=== PATIENT | female | born 1970 | race Caucasian/White ===

== ENCOUNTER → 2020-07-10 07:59 | Outpatient (BNVA) | payer OTHER, SELFPAY | PROVIDERS: PCP Internal Medicine; Referring Provider Internal Medicine; Visit Provider Internal Medicine Endocrinology, Diabetes & Metabolism | DX: Z76.89 Persons encountering health services in other specified circumstances (principal) ==

== ENCOUNTER 2020-07-10 08:49 | Outpatient (REF) | payer OTHER, SELFPAY ==
[2020-07-10 10:56] LABS: Alanine Aminotransferase 25 U/L (0-31); Albumin Level 4.3 g/dL (3.5-5.0); Alkaline Phosphatase 50 U/L (39-117); Anion Gap 14 (12-20); Aspartate Amino Transferase 18 U/L (5-31); Bilirubin Total 0.6 mg/dL (0.0-1.0); Blood Urea Nitrogen 14 mg/dL (9-16); Calcium 9.2 mg/dL (8.4-10.2); Carbon Dioxide 25 mmol/L (22-29); Chloride 103 mmol/L (96-108); Cholesterol 156 mg/dL; Estimated Glomerular Filt Rate > 60; Glucose Fasting 150 mg/dL (60-99); HDL Cholesterol 38 mg/dL; LDL Cholesterol Calculated 90 mg/dl; Potassium 4.4 mmol/l (3.3-5.1); Sodium 138 mmol/L (135-145); Total Protein 7.2 g/dL (6.5-8.0); Triglycerides 142 mg/dL
[2020-07-10 11:18] LABS: Free T4 (Free Thyroxine) 1.37 ng/dL (0.71-1.85); Vitamin D 25-OH Total 64.1 ng/mL (>30)
[2020-07-10 11:30] LABS: Vitamin B12 325 pg/mL (200-900)
[2020-07-11 17:26] LABS: Calcium (PTHI) 9.8 mg/dL (8.6-10.2); PTHI 33 pg/mL (14-64)
[2020-07-11 19:02] LABS: LDL Cholesterol Direct 102 mg/dL (<100)
[2020-07-14 06:42] LABS: Thyroglobulin Antibody <1 IU/mL (<=1); Thyroglobulin Level 0.6 ng/mL
== END 2020-07-10 08:50 | disposition home or self-care (01) ==
LOC: HO.10HDL 08:49
PROVIDERS: Visit Provider Internal Medicine Endocrinology, Diabetes & Metabolism
DX: C73 Malignant neoplasm of thyroid gland (principal); Z86.39 Personal history of other endocrine, nutritional and metabolic disease; E11.9 Type 2 diabetes mellitus without complications
CPT/HCPCS: 36415; 80053; 80061; 82306; 82607; 83721; 83970; 84432; 84439; 84443; 86800

== ENCOUNTER 2020-07-10 14:21 | Outpatient (REF) | payer OTHER, SELFPAY ==
--- NOTE | 2020-07-10 14:26 | US_ITS ---
EXAMINATION: US SOFT TISSUE OF THE NECK CLINICAL INFORMATION: Malignant neoplasm of thyroid gland. COMPARISON: Ultrasound soft tissue head/neck dated 11/21/2018. Thyroid ultrasound 06/19/2019. TECHNIQUE: Linear transducer grayscale and color Doppler examination of the thyroid bed and surrounding soft tissue. FINDINGS: RIGHT NECK: 1.Level 2 lymph node measures 1.0 x 0.5 x 0.8 cm. It has absent hilum with cystic features, abnormal. 2.Level 2 lymph node measures 1.7 x 0.6111 cm. It has slit-like hilum and appears normal. 3.Level 3 lymph node measures 1.7 x 0.6 x 1.1 cm. Absent hilum with cystic features, abnormal. 4.Level 5A lymph node measures 1.0 x 0.7 x 0.7 cm. It has absent hilum and has cystic and round features. LEFT NECK: 1.Level 1B lymph node measures 1.2 x 0.9 x 1.1 cm. It has absent hilum and has dominant cystic features with septation. Abnormal. 2.Level 2 lymph node measures 1.6 x 0.8 x 1.6 cm. Septations, abnormal. 3.Level 3 lymph node measures 1.4 x 0.6 x 0.8 cm. It has normal echogenic medulla and hypoechoic cortex, normal. 4.Level 3 lymph node measures 1.3 x 0.3 x 0.7 cm. There is normal echogenic medulla. Normal. 5.Level 4 lymph node measures 1.5 x 0.6 x 0.9 cm. It is an echogenic medulla and typical lymph node appearance, normal. 6.Level 2 lymph node measures 0.9 x 0.3 x 0.6 cm and has normal lymph node characteristics. US/US soft tiss head and/or neck IMPRESSION: Neck lymph nodes as described above.
== END 2020-07-10 14:22 | disposition home or self-care (01) ==
LOC: HO.US 14:21
PROVIDERS: PCP Internal Medicine; Visit Provider Internal Medicine Endocrinology, Diabetes & Metabolism
DX: C73 Malignant neoplasm of thyroid gland (principal)
CPT/HCPCS: 76536

== ENCOUNTER 2020-07-17 16:04 | Outpatient (REF) | payer OTHER, SELFPAY ==
[2020-07-17 16:25] LABS: COVID-19 Test Negative (Negative)
== END 2020-07-17 16:05 | disposition home or self-care (01) ==
LOC: HO.LAB 16:04
PROVIDERS: PCP Internal Medicine; Visit Provider Internal Medicine
DX: Z20.828 Contact with and (suspected) exposure to other viral communicable diseases (principal)
CPT/HCPCS: 87635; C9803

== ENCOUNTER 2020-07-31 11:28 | Outpatient (REF) | payer OTHER, SELFPAY ==
--- NOTE | 2020-07-31 12:53 | PM.OP ---
Brief Operative Note Date of Service: 07/31/20 Pre-op diagnosis: Abnormal lymphadenopathy on previous follicular and papillary thyroid cancer Post-op diagnosis: same Procedure: This procedure was explained to the patient. Alternatives, risks and benefits were discussed. Written consent was obtained. After sterile preparation of the skin, fine-needle aspiration biopsy of right level 2 lymph node size 1.7 x 0.6 cm was performed under direct ultrasound guidance to confirm accurate needle placement. Two passes were performed with 25 gauge needles. Sample was submitted to cytology, initial cytology reading was adequate. One pass was dedicated for thyroglobulin washout of the needle. Patient tolerated procedure well. Aftercare instructions were provided. Impression: uncomplicated fine-needle aspiration biopsy of right level 2 lymph node under direct ultrasound guidance. Surgeon: Chapito Kennedy MD Anesthesia: local (Lidocaine 1% 1 ml) Estimated blood loss (mL): 0 Condition: stable Disposition: same day
[2020-07-31] MEDS: Lidocaine HCl 1 % MPF 5 ML VIAL SUBCUT (13:57)
[2020-08-05 23:37] LABS: Thyroglobulin, Fine Needle Asp <0.1 ng/mL
== END 2020-07-31 11:29 | disposition home or self-care (01) ==
LOC: HO.US 11:28
PROVIDERS: PCP Internal Medicine; Visit Provider Internal Medicine Endocrinology, Diabetes & Metabolism
DX: C73 Malignant neoplasm of thyroid gland (principal); R59.1 Generalized enlarged lymph nodes
CPT/HCPCS: 10005; 88172; 88173; 88300

== ENCOUNTER 2020-08-27 08:36 | Outpatient (REF) | payer OTHER, SELFPAY ==
--- NOTE | 2020-08-27 08:40 | MM_ITS ---
EXAMINATION: MM SCREENING DIGITAL BREAST TOMOSYNTHESIS, BILATERAL CLINICAL INFORMATION: Screening. Asymptomatic. The lifetime risk of breast cancer based on the Tyrer-Cuzick Model is 7%. COMPARISON: Mammography: 08/15/2019, 04/12/2018 TECHNIQUE: Digital breast tomosynthesis is performed in both the craniocaudal and mediolateral oblique views along with computer-aided detection (CAD). Synthesized 2D images are generated from the tomosynthesis. FINDINGS: There are scattered areas of fibroglandular density (ACR BI-RADS breast composition Category b). There are no significant masses, abnormal calcifications, or other abnormalities. ) Pattern is similar to prior studies. No developing density. The skin contours are smooth. MM/MM tomosynthesis screening BI IMPRESSION: No mammographic evidence of malignancy. ASSESSMENT: BI-RADS 1: Negative RECOMMENDATION: Routine annual mammography screening. This patient's information was entered into a reminder system with a target due date for their next mammogram.
== END 2020-08-27 08:37 | disposition home or self-care (01) ==
LOC: HO.MAMMO 08:36
PROVIDERS: PCP Internal Medicine; Visit Provider Internal Medicine
DX: Z12.31 Encounter for screening mammogram for malignant neoplasm of breast (principal)
CPT/HCPCS: 77063; 77067

== ENCOUNTER → 2020-10-10 08:19 | Outpatient (BNVA) | payer OTHER, SELFPAY | PROVIDERS: PCP Internal Medicine; Referring Provider Internal Medicine; Visit Provider Internal Medicine Endocrinology, Diabetes & Metabolism | DX: C73 Malignant neoplasm of thyroid gland (principal); E89.0 Postprocedural hypothyroidism; E78.5 Hyperlipidemia, unspecified; E66.9 Obesity, unspecified; E11.65 Type 2 diabetes mellitus with hyperglycemia; I10 Essential (primary) hypertension; Z86.39 Personal history of other endocrine, nutritional and metabolic disease | CPT/HCPCS: 82947 ==

== ENCOUNTER 2020-10-10 09:05 | Outpatient (REF) | payer OTHER, SELFPAY ==
[2020-10-10 10:30] LABS: Alanine Aminotransferase 29 U/L (0-31); Albumin Level 4.5 g/dL (3.5-5.0); Alkaline Phosphatase 55 U/L (39-117); Anion Gap 14 (12-20); Aspartate Amino Transferase 19 U/L (5-31); Bilirubin Total 0.7 mg/dL (0.0-1.0); Blood Urea Nitrogen 14 mg/dL (9-16); Calcium 9.1 mg/dL (8.4-10.2); Carbon Dioxide 25 mmol/L (22-29); Chloride 104 mmol/L (96-108); Cholesterol 164 mg/dL; Estimated Glomerular Filt Rate > 60; Glucose Random 201 mg/dL (60-115); HDL Cholesterol 42 mg/dL; LDL Cholesterol Calculated 91 mg/dl; Potassium 4.8 mmol/l (3.3-5.1); Sodium 138 mmol/L (135-145); Total Protein 7.2 g/dL (6.5-8.0); Triglycerides 155 mg/dL
[2020-10-10 10:54] LABS: Free T4 (Free Thyroxine) 1.24 ng/dL (0.71-1.85); Thyroid Stimulating Hormone 1.21 uIU/mL (0.32-4.0); Vitamin D 25-OH Total 36.2 ng/mL (>30)
[2020-10-11 08:17] LABS: LDL Cholesterol Direct 106 mg/dL (<100)
[2020-10-13 15:30] LABS: Vitamin B12 250 pg/mL (200-900)
[2020-10-16 05:17] LABS: Thyroglobulin Antibody <1 IU/mL (<=1); Thyroglobulin Level 0.5 ng/mL
== END 2020-10-10 09:06 | disposition home or self-care (01) ==
LOC: HO.10HDL 09:05
PROVIDERS: Visit Provider Internal Medicine Endocrinology, Diabetes & Metabolism
DX: E11.65 Type 2 diabetes mellitus with hyperglycemia (principal); C73 Malignant neoplasm of thyroid gland; E89.0 Postprocedural hypothyroidism; Z86.39 Personal history of other endocrine, nutritional and metabolic disease
CPT/HCPCS: 36415; 80053; 80061; 82306; 82607; 83721; 84432; 84439; 84443; 86800

== ENCOUNTER → 2021-01-06 08:44 | Outpatient (BNVA) | payer OTHER, SELFPAY | PROVIDERS: PCP Internal Medicine; Visit Provider Internal Medicine Endocrinology, Diabetes & Metabolism | DX: C73 Malignant neoplasm of thyroid gland (principal); E89.0 Postprocedural hypothyroidism; E78.5 Hyperlipidemia, unspecified; E66.9 Obesity, unspecified; I10 Essential (primary) hypertension; E11.9 Type 2 diabetes mellitus without complications; Z86.39 Personal history of other endocrine, nutritional and metabolic disease | CPT/HCPCS: 82947 ==

== ENCOUNTER 2021-01-06 09:25 | Outpatient (REF) | payer OTHER, SELFPAY ==
[2021-01-06 11:19] LABS: Free T4 (Free Thyroxine) 0.98 ng/dL (0.71-1.85); Thyroid Stimulating Hormone 1.43 uIU/mL (0.32-4.0)
[2021-01-07 06:26] LABS: LDL Cholesterol Direct 109 mg/dL (<100)
[2021-01-10 07:11] LABS: Thyroglobulin Antibody <1 IU/mL (<=1); Thyroglobulin Level 0.5 ng/mL
== END 2021-01-06 09:26 | disposition home or self-care (01) ==
LOC: HO.10HDL 09:25
PROVIDERS: Visit Provider Internal Medicine Endocrinology, Diabetes & Metabolism
DX: C73 Malignant neoplasm of thyroid gland (principal); E78.5 Hyperlipidemia, unspecified
CPT/HCPCS: 36415; 83721; 84432; 84439; 84443; 86800

== ENCOUNTER 2021-03-17 13:06 | Outpatient (REF) | payer OTHER, SELFPAY ==
[2021-03-17 14:23] LABS: Alanine Aminotransferase 28 U/L (0-31); Albumin Level 4.1 g/dL (3.5-5.0); Alkaline Phosphatase 58 U/L (39-117); Anion Gap 13 (12-20); Aspartate Amino Transferase 16 U/L (5-31); Bilirubin Total 0.6 mg/dL (0.0-1.0); Blood Urea Nitrogen 12 mg/dL (9-16); Calcium 9.4 mg/dL (8.4-10.2); Carbon Dioxide 23 mmol/L (22-29); Chloride 106 mmol/L (96-108); Estimated Glomerular Filt Rate > 60; Glucose Random 317 mg/dL (60-115); Potassium 4.2 mmol/L (3.3-5.1); Sodium 138 mmol/L (135-145); Total Protein 6.8 g/dL (6.5-8.0)
[2021-03-17 14:27] LABS: Estimated Average Glucose 163 mg/dL; Hemoglobin A1c % 7.3 %
== END 2021-03-17 13:07 | disposition home or self-care (01) ==
LOC: HO.HMGCLDS 13:06
PROVIDERS: PCP Internal Medicine; Visit Provider Internal Medicine
DX: I10 Essential (primary) hypertension (principal); E11.9 Type 2 diabetes mellitus without complications
CPT/HCPCS: 36415; 80053; 83036

== ENCOUNTER 2021-03-24 14:46 | Outpatient (REF) | payer OTHER, SELFPAY ==
--- NOTE | ~2021-03-24 | MR_ITS ---
EXAMINATION: MR LUMBAR SPINE WITHOUT AND WITH CONTRAST CLINICAL INFORMATION: History of prior lumbar fusion. Right ball of foot numbness. Back spasms. COMPARISON: MRI dated 11/20/2013. TECHNIQUE: MRI of the lumbar spine was obtained using routine sequences with and without contrast. Intravenous contrast: Gadavist 10 mL FINDINGS: VERTEBRAL BODIES AND PARASPINAL STRUCTURES: There is a mild rightward curvature of the midlumbar spine. Posterior interbody fusion hardware in place at the L4-L5 level with chronic fatty marrow degenerative endplate changes and a prior right-sided decompressive laminectomy. Transitional anatomy again evident with partial sacralization of L5 on the right side with a pseudoarticulation visible. There are no compression fractures. Mild retrosubluxation evident at the L3-L4 level. No abnormal enhancement identified. The paraspinal soft tissues are unremarkable. CONUS MEDULLARIS AND CAUDA EQUINA: Normal, terminating at the level of T12. No lower cord signal abnormality is seen. The cauda equina nerve roots are normal. No pathologic leptomeningeal enhancement identified. SPINAL LEVELS: L1-L2: No disc pathology. Mild facet arthrosis without central canal stenosis or foraminal narrowing. L2-L3: Retrosubluxation and broad-based posterior disc bulge with impression upon the thecal sac. Hypertrophic facet arthropathy noted. Stable gkqa-qn-gzckmrxc central canal stenosis and thecal sac deformity with mild foraminal encroachment. L3-L4: Diffuse disc bulge and hypertrophic facet arthropathy with worsened ayee-an-hcllrtnc thecal sac distortion and jdxa-ka-qvwgsmqt central canal stenosis. Mild left and moderate right foraminal narrowing have also worsened. L4-L5: Status post posterior lumbar interbody fusion without central canal stenosis. Hypertrophic bony changes contribute to moderate right foraminal encroachment. L5-S1: No disc pathology. Hypertrophic facet arthropathy without foraminal encroachment. No central canal stenosis. MR/MR lumbar spine wo/w con IMPRESSION: Status post posterior lumbar interbody fusion at the L4-L5 level with hypertrophic bony changes resulting in moderate right foraminal encroachment. Stable oofa-uj-aedazekv central canal stenosis and retrosubluxation with a diffuse disc bulge at the L2-L3 level. Progressed spondylitic changes at the L3-L4 level with a worsened diffuse disc bulge and endplate spurring contributing to adeb-ua-zqajknos central canal stenosis and thecal sac deformity with worsened moderate right foraminal narrowing.
== END 2021-03-24 14:47 | disposition home or self-care (01) ==
LOC: HO.MRI 14:46
PROVIDERS: PCP Internal Medicine; Visit Provider Internal Medicine
DX: M54.16 Radiculopathy, lumbar region (principal); M43.26 Fusion of spine, lumbar region
CPT/HCPCS: 72158; A9585

== ENCOUNTER → 2021-11-18 14:24 | Outpatient (BNVA) | payer OTHER, SELFPAY | PROVIDERS: PCP Internal Medicine; Visit Provider Internal Medicine ==

== ENCOUNTER 2021-11-19 07:52 | Outpatient (REF) | payer OTHER, SELFPAY ==
[2021-11-19 10:14] LABS: Alanine Aminotransferase 39 U/L (0-31); Albumin Level 4.3 g/dL (3.5-5.0); Alkaline Phosphatase 54 U/L (39-117); Anion Gap 15 (12-20); Aspartate Amino Transferase 27 U/L (5-31); Bilirubin Total 0.9 mg/dL (0.0-1.0); Blood Urea Nitrogen 17 mg/dL (9-16); Calcium 9.6 mg/dL (8.4-10.2); Carbon Dioxide 25 mmol/L (22-29); Chloride 101 mmol/L (96-108); Estimated Glomerular Filt Rate > 60; Glucose Random 310 mg/dL (60-115); Phosphorus 3.1 mg/dL (2.7-4.5); Potassium 4.7 mmol/L (3.3-5.1); Sodium 136 mmol/L (135-145); Total Protein 7.2 g/dL (6.5-8.0)
[2021-11-19 10:40] LABS: Free T4 (Free Thyroxine) 1.19 ng/dL (0.71-1.85); Thyroid Stimulating Hormone 5.04 uIU/mL (0.32-4.0); Vitamin D 25-OH Total 41.1 ng/mL (>30)
[2021-11-20 18:17] LABS: Thyroglobulin 0.7 ng/mL; Thyroglobulin Antibodies <1 IU/mL (< or = 1)
[2021-11-21 09:52] LABS: Calcium (PTHI) 9.5 mg/dL (8.6-10.4); PTHI 41 pg/mL (14-64)
== END 2021-11-19 07:53 | disposition home or self-care (01) ==
LOC: HO.LAB 07:52
PROVIDERS: PCP Internal Medicine; Visit Provider Internal Medicine
DX: E55.9 Vitamin D deficiency, unspecified (principal); Z85.850 Personal history of malignant neoplasm of thyroid; Z86.39 Personal history of other endocrine, nutritional and metabolic disease
CPT/HCPCS: 36415; 80053; 82306; 83970; 84100; 84432; 84439; 84443; 86800

== ENCOUNTER 2021-11-24 09:03 | Outpatient (REF) | payer OTHER, SELFPAY ==
--- NOTE | ~2021-11-24 | MM_ITS ---
EXAMINATION: MM SCREENING DIGITAL BREAST TOMOSYNTHESIS, BILATERAL CLINICAL INFORMATION: Screening. Asymptomatic. The lifetime risk of breast cancer based on the Tyrer-Cuzick Model is 8%. COMPARISON: Mammography: 08/27/2020, 08/15/2019, 04/12/2018 TECHNIQUE: Digital breast tomosynthesis is performed in both the craniocaudal and mediolateral oblique views along with computer-aided detection (CAD). Synthesized 2D images are generated from the tomosynthesis. FINDINGS: There are scattered areas of fibroglandular density (ACR BI-RADS breast composition Category b). There are no significant masses, abnormal calcifications, or other abnormalities. Parenchymal pattern is similar to prior studies. There is no developing density or architectural abnormality. The axilla and skin contours are unremarkable. No significant changes. MM/MM tomosynthesis screening BI IMPRESSION: No mammographic evidence of malignancy. ASSESSMENT: BI-RADS 1: Negative RECOMMENDATION: Routine annual mammography screening. This patient's information was entered into a reminder system with a target due date for their next mammogram.
== END 2021-11-24 09:04 | disposition home or self-care (01) ==
LOC: HO.MAMMO 09:03
PROVIDERS: PCP Internal Medicine; Visit Provider Internal Medicine
DX: Z12.31 Encounter for screening mammogram for malignant neoplasm of breast (principal)
CPT/HCPCS: 77063; 77067

== ENCOUNTER 2021-12-17 13:51 | Outpatient (REF) | payer OTHER, SELFPAY ==
--- NOTE | ~2021-12-17 | US_ITS ---
EXAMINATION: US SOFT TISSUE NECK CLINICAL INFORMATION: Thyroid cancer. COMPARISON: Previous ultrasound June 2020 TECHNIQUE: Ultrasound of the neck soft tissues is performed with high- frequency hunt-scale imaging and color Doppler. FINDINGS: THYROID BED: Prior thyroidectomy. No residual thyroid tissue demonstrated in the thyroid bed. No cystic or solid nodules demonstrated in the thyroid bed. RIGHT NECK SOFT TISSUES: There are 3 right cervical lymph nodes. The largest nodes are as follows: Level 2: 1.6 x 0.5 x 0.6 cm. previous 1.7 x 0.6 x 1.1 cm. Normal elizabeth architecture. Level 3: 2.2 x 0.8 x 1.3 cm. previous 1.7 x 0.6 x 1.1 abnormal elizabeth architecture with slitlike hilum. LEFT NECK SOFT TISSUES: There are 4 left cervical lymph nodes. The largest nodes are as follows: Level 2: 1.4 x 1 x 1.5 cm. previous 1.2 x 0.9 x 1.1 abnormal elizabeth architecture with cortical thickening Level 2: 1.6 x 0.7 x 0.6 cm. Normal elizabeth architecture. There are level 3 and level 4 lymph nodes that appear unchanged in size with normal elizabeth architecture. US/US soft tiss head and/or neck IMPRESSION: Bilateral cervical lymph nodes. Most suspicious lymph node is a right zone 3 lymph node that measures 2.2 x 0.8 x 1.3 cm and has a slitlike hilum.
== END 2021-12-17 13:52 | disposition home or self-care (01) ==
LOC: HO.US 13:51
PROVIDERS: PCP Internal Medicine; Visit Provider Internal Medicine
DX: Z85.850 Personal history of malignant neoplasm of thyroid (principal)
CPT/HCPCS: 76536

== ENCOUNTER → 2021-12-21 08:52 | Outpatient (BNVA) | payer OTHER, SELFPAY | PROVIDERS: PCP Internal Medicine; Visit Provider Nurse Practitioner Gerontology | DX: Z85.850 Personal history of malignant neoplasm of thyroid (principal) | CPT/HCPCS: 96372 ==

== ENCOUNTER 2021-12-22 08:53 | Outpatient (REF) | payer OTHER, SELFPAY ==
[2021-12-22 10:20] LABS: HCG Quantitative < 2 mIU/mL
== END 2021-12-22 08:54 | disposition home or self-care (01) ==
LOC: HO.LAB 08:53
PROVIDERS: Absent Provider Internal Medicine; PCP Internal Medicine; Visit Provider Internal Medicine Endocrinology, Diabetes & Metabolism
DX: Z85.850 Personal history of malignant neoplasm of thyroid (principal)
CPT/HCPCS: 36415; 84702; 96372

== ENCOUNTER 2021-12-23 11:39 | Outpatient (REF) | payer OTHER, SELFPAY ==
[2021-12-23 12:17] LABS: Estimated Average Glucose 183 mg/dL
[2021-12-23 12:50] LABS: Alanine Aminotransferase 55 U/L (0-31); Albumin Level 4.3 g/dL (3.5-5.0); Alkaline Phosphatase 60 U/L (39-117); Anion Gap 11 (12-20); Aspartate Amino Transferase 27 U/L (5-31); Bilirubin Total 0.7 mg/dL (0.0-1.0); Blood Urea Nitrogen 14 mg/dL (9-16); Calcium 9.8 mg/dL (8.4-10.2); Carbon Dioxide 25 mmol/L (22-29); Chloride 105 mmol/L (96-108); Estimated Glomerular Filt Rate > 60; Glucose Random 223 mg/dL (60-115); Potassium 4.6 mmol/L (3.3-5.1); Sodium 136 mmol/L (135-145); Total Protein 7.2 g/dL (6.5-8.0)
[2021-12-23 12:51] LABS: Thyroid Stimulating Hormone 56.14 uIU/mL (0.32-4.0)
[2021-12-24 09:21] LABS: Thyroglobulin 3.3 ng/mL; Thyroglobulin Antibodies <1 IU/mL (< or = 1)
== END 2021-12-23 11:40 | disposition home or self-care (01) ==
LOC: HO.LAB 11:39
PROVIDERS: PCP Internal Medicine; Visit Provider Internal Medicine
DX: E11.65 Type 2 diabetes mellitus with hyperglycemia (principal); E78.9 Disorder of lipoprotein metabolism, unspecified; I10 Essential (primary) hypertension; Z85.850 Personal history of malignant neoplasm of thyroid
CPT/HCPCS: 36415; 80053; 83036; 84432; 84443; 86800

== ENCOUNTER 2021-12-24 05:05 | Emergency (ER) | payer OTHER, SELFPAY ==
[2021-12-24 05:18] VITALS: BP 159/108; PULSE 97; RESP 18; TEMP 37.1; O2SAT 100; BMI 31.9
[2021-12-24 05:24] VITALS: BP 159/108; PULSE 97; RESP 18; TEMP 37.1; O2SAT 100
[2021-12-24 05:40] LABS: Strep A Nucleic Acid Positive (Negative)
--- NOTE | 2021-12-24 06:25 | ED_ITS ---
HPI - General Adult General Chief complaint: General Medical Stated complaint: throat pain, has been treated for thyroid cancer Time Seen by Provider: 12/24/21 06:24 Source: patient Mode of arrival: ambulatory History of Present Illness HPI narrative: 51-year-old female currently undergoing treatment for thyroid CA comes in with 2 days of scratchy throat increasing with pain that extends up into bilateral ears, headache and posterior neck pain. Related Data Home Medications Medication Instructions Recorded Confirmed lancets 33 gauge #100 ea 07/10/20 12/08/21 blood-glucose meter #1 ea 07/16/20 12/08/21 Previous Rx's Medication Instructions Recorded blood sugar diagnostic (FreeStyle #25 ea 10/10/20 Precision Papa Strips) flash glucose scanning reader #1 ea 10/10/20 (FreeStyle Jane 14 Day [place]) flash glucose sensor (FreeStyle #2 ea 10/10/20 Jane 14 Day Sensor) FreeStyle Lite Strips (blood sugar #100 ea NS 01/06/21 diagnostic) pen needle, diabetic 32 gauge x #10 ea 01/06/21/32 (BD Gabriela 2nd Gen Pen Needle) atorvastatin 40 mg tablet 40 mg PO BEDTIME 90 Days #90 tab 06/23/21 valacyclovir 500 mg tablet 500 mg PO ONCE PRN 90 Days #90 tab 06/23/21 lisinopril 20 mg tablet 20 mg PO DAILY 90 Days #90 tab 10/07/21 levothyroxine 125 mcg tablet 125 mcg PO DAILY 30 Days #30 tab 11/19/21 thyrotropin jair 0.9 mg 0.9 mg IM DAILY #2 ml 11/19/21 intramuscular solution (Thyrogen) glipizide 5 mg-metformin 500 mg 1 tab PO DAILY 90 Days #90 tab 12/08/21 tablet omeprazole 40 mg capsule,delayed 40 mg PO DAILY 90 Days #90 cap 12/08/21 release amoxicillin 875 mg-potassium 1 tab PO Q12H 10 Days #20 tab 12/24/21 clavulanate 125 mg tablet Allergies Allergy/AdvReac Type Severity Reaction Status Date / Time hydromorphone [From DILAUDID] AdvReac Severe PROJECTILE Verified 12/08/21 14:59 VOMITING Review of Systems Review of Systems: Pertinent positives and negatives as stated in HPI 10 point review of systems is otherwise negative. [facility] Past Medical History Source: nursing notes reviewed Medical History Diabetes type 2, controlled Diabetes type 2, uncontrolled Dyslipidemia Headache syndrome Herpes labialis History of primary hyperparathyroidism History of thyroid cancer Hypertension, essential Lipid disorder Obesity (BMI 30-39.9) Post-surgical hypothyroidism Primary thyroid cancer Psoriasis Seborrheic dermatitis of scalp Vitamin D deficiency Surgical History History of back surgery History of partial hysterectomy History of partial thyroidectomy Hx of thyroidectomy Family History Family History Father Diabetes Hypertension Mother Degenerative arthritis Hypertension Maternal Grandmother Colon cancer Other Substance use disorder Social History Social History Household Members: Children Housing: House Are you a primary rn care manager to a significant other at home: No Do you presently have visiting nurse or other home services: No Patient Tobacco Use Status: Never used Tobacco Advance Directives: No Patient : No service: No Current occupational status: employed Physical Exam ED Vital Signs: Vital Signs - 24 hr 12/24/21 05:18 12/24/21 05:24 Temperature 98.8 F 98.8 F Pulse Rate 97 97 Respiratory Rate 18 18 Blood Pressure 159/108 H 159/108 H Pulse Oximetry 100 100 BMI result Body Mass Index 31.9 VITAL SIGNS: Reviewed. GENERAL: Well developed, well nourished, in no acute distress. HEAD: Normocephalic/atraumatic EYES: PERRLA, EOMI EARS: Ext canals without abnormality, TMs non-bulging and non-erythematous NOSE: Nares patent bilateral OROPHARYNX: no oral lesions noted, posterior pharynx with erythema with noted tonsillar enlargement/erythema NECK: Supple, no adenopathy LUNGS: Normal breath sounds. No adventitious sounds or accessory muscle use. SpO2<100> CARDIOVASCULAR: Regular rate and rhythm without noted murmurs ABDOMEN: Soft, non-tender, non-distended with bowel sounds. SKIN: Inspection of the skin reveals no rashes NEUROLOGIC: Alert and oriented x 4. Strength and sensation to light touch were grossly intact x 4. Course Course Course Narrative: 51-year-old female with history and clinical presentation suggestive of pharyn gitis which was further corroborated by a positive strep test. Patient received initial antibiotics here in the emergency room and was offered combination analgesics but head taken these prior to arrival. Patient is otherwise discharged home in stable condition. Medical Decision Making Lab Data Labs: Lab Results 12/24/21 Range/Units 05:28 S. pyogenes GrpA JAMES Positive A (Negative) Discharge Plan Discharge Clinical Impression: Strep pharyngitis Patient Disposition: Home, Self-Care Instructions: Strep Throat (ED) Additional Instructions: 1. Resume all home medications as prescribed. 2. Recommend stbc-wda-tqpvmqt Tylenol/ibuprofen as needed for pain, temperatures greater than 100.4. Increase your fluid hydration especially with water. 3. Complete the entire course of antibiotics you have been prescribed. 4. Follow-up with your primary care provider in the next 2-3 days for re- evaluation. Return to the ER for worsening symptoms. Prescriptions: New amoxicillin-pot clavulanate 875-125 mg tablet 1 tab PO Q12H 10 Days Qty: 20 0RF No Action lisinopril 20 mg tablet 20 mg PO DAILY 90 Days Qty: 90 0RF Thyrogen 0.9 mg recon soln 0.9 mg IM DAILY Qty: 2 0RF Rx Instructions: Please include 10 ml of sterile water levothyroxine 125 mcg tablet 125 mcg PO DAILY 30 Days Qty: 30 3RF (DME) blood-glucose meter Misc See Rx Instructions ea .ROUTE .MEDSUPPLY Qty: 1 0RF Rx Instructions: As directed atorvastatin 40 mg tablet 40 mg PO BEDTIME 90 Days Qty: 90 0RF Rx Instructions: Dose increased valacyclovir 500 mg tablet 500 mg PO ONCE PRN (Reason: herpes labialis) 90 Days Qty: 90 0RF Rx Instructions: take 4 tablets 12 hours apart for 1 day for acute flare up glipizide-metformin 5-500 mg tablet 1 tab PO DAILY 90 Days Qty: 90 0RF omeprazole 40 mg capsule,delayed release(DR/EC) 40 mg PO DAILY 90 Days Qty: 90 0RF (DME) lancets 33 gauge misc See Rx Instructions gauge .ROUTE .MEDSUPPLY Qty: 100 0RF Rx Instructions: As directed (DME) FreeStyle Lite Strips Strip See Rx Instructions strip Not Applicable DAILY Qty: 100 6RF Rx Instructions: Twice a day (DME) pen needle, diabetic [BD Gabriela 2nd Gen Pen Needle] 32 gauge x 5/32 needle See Rx Instructions .MEDSUPPLY Qty: 10 4RF Rx Instructions: once a week (DME) FreeStyle Jane 14 Day Sensor Kit See Rx Instructions .ROUTE .MEDSUPPLY Qty: 2 11RF Rx Instructions: every 14 days (DME) FreeStyle Jane 14 Day [place] Misc See Rx Instructions .ROUTE .MEDSUPPLY Qty: 1 0RF Rx Instructions: As directed (DME) FreeStyle Precision Papa Strips Strip See Rx Instructions .ROUTE .MEDSUPPLY Qty: 25 6RF Rx Instructions: once a day for calibration Referrals: Yvette Chopra MD [Primary Care Provider] -
[2021-12-24] MEDS: Amoxicillin/Potassium Clav 875 MG TABLET PO (06:30)
== END 2021-12-24 06:40 | disposition home or self-care (01) ==
PROVIDERS: Emergency Provider Student in an Organized Health Care Education/Training Program; PCP Internal Medicine
DX: J02.0 Streptococcal pharyngitis (principal); R07.0 Pain in throat; Z79.899 Other long term (current) drug therapy; Z20.822 Contact with and (suspected) exposure to COVID-19
CPT/HCPCS: 36415; 87651; 99283; 99284

== ENCOUNTER → 2022-01-11 13:20 | Outpatient (BNVA) | payer OTHER, SELFPAY | PROVIDERS: PCP Internal Medicine; Visit Provider Internal Medicine | DX: Z13.89 Encounter for screening for other disorder (principal) ==

== ENCOUNTER 2022-01-18 09:45 | Outpatient (REF) | payer OTHER, SELFPAY ==
--- NOTE | ~2022-01-18 | CT_ITS ---
EXAMINATION: CT CHEST WITHOUT CONTRAST CLINICAL INFORMATION: History of thyroid malignancy. COMPARISON: Chest x-ray 12/11/2019 TECHNIQUE: Multidetector volumetric CT imaging of the chest was done. Axial MIP volume rendering provided. Sagittal and coronal reformatted images were obtained. This CT examination was performed using dose optimization techniques as appropriate, variously including the following: *Automated exposure control *Adjustment of mA and/or kV according to patient size (this includes techniques or standardized protocols for targeted exams where dose is matched to indication/reason for exam; i.e. extremities or head) *Use of iterative reconstruction technique DLP: 212 mGy-cm FINDINGS: SCRAP IRON CUTTER: Unremarkable LUNGS: The lungs are well-expanded without any acute pneumonic consolidation. No pulmonary nodule, mass or groundglass density seen. There is a right azygos lobe noted. MEDIASTINUM: The thyroid gland has been surgically removed. Central trachea and the bronchi are widely patent. Heart size and the great vessels are normal caliber. No pericardial effusion seen. There is no abnormal mediastinal adenopathy. PLEURA: There is no pleural effusion. No pleural mass or thickening. AXILLA: Small shotty lymph nodes are seen in bilateral axilla. UPPER ABDOMEN: Visualized liver, spleen, pancreas and bilateral adrenal glands unremarkable. OSSEOUS STRUCTURES: No aggressive lytic or sclerotic process seen. There is mild ventral spondylosis of mid dorsal spine. CT/CT chest wo con IMPRESSION: Unremarkable CT chest exam. Fleischner guidelines were followed.
[2022-01-18 11:01] LABS: Free T4 (Free Thyroxine) 1.12 ng/dL (0.71-1.85); Thyroid Stimulating Hormone 3.56 uIU/mL (0.32-4.0)
[2022-01-19 21:52] LABS: Thyroglobulin Antibodies 1 IU/mL (< or = 1)
== END 2022-01-18 09:46 | disposition home or self-care (01) ==
LOC: HO.CT 09:45
PROVIDERS: PCP Internal Medicine; Visit Provider Internal Medicine
DX: Z85.850 Personal history of malignant neoplasm of thyroid (principal)
CPT/HCPCS: 36415; 71250; 84432; 84439; 84443; 86800

== ENCOUNTER 2022-01-20 14:19 | Outpatient (REF) | payer OTHER, SELFPAY ==
--- NOTE | ~2022-01-20 | MM_ITS ---
EXAMINATION: BONE DENSITOMETRY CLINICAL INDICATION: Screening. Primary hyperthyroidism. Hyperparathyroid. COMPARISON: Baseline BD dated 11/24/2018. TECHNIQUE: Using a [employer] DXA System (software version: 13.1) manufactured by [employer], dual-energy x-ray absorptiometry was performed of the lumbar spine, left hip, and left forearm radius 33%. The images are of good technical quality. Summary results are attached. FINDINGS: AP SPINE L1-L2 (excluding L3 and L4): The data of L1-L4 has been changed to exclude the L3 and L4 vertebral bodies, because hardware at these levels may cause overestimation of lumbar spine density. Current: BMD 1.501 g/cm2, Z-score 2.2, T-score 2.8, normal, 3.7% increase from baseline (<5% change is not significant). Baseline: BMD 1.447 g/cm2. LEFT FEMUR, NECK: Current: BMD 1.003 g/cm2, Z-score -0.1, T-score -0.3, normal. Baseline: BMD 1.051 g/cm2. LEFT FEMUR, TOTAL: Current: BMD 0.996 g/cm2, Z-score -0.3, T-score -0.1, normal, 1.3% decrease from baseline (<5% change is not significant). Baseline: BMD 1.009 g/cm2. LEFT FOREARM RADIUS 33%: BMD 0.912 g/cm2, Z-score 0.4, T-score 0.4, normal, 1.4% increase from baseline (<5% change is not significant). Baseline: BMD 0.899 g/cm2. IDENTIFIED RISK FACTORS: Menopause, hyperparathyroidism, osteoporosis. HISTORY OF FRACTURE: None listed. MEDICATIONS: Vitamin D. MM/XR DEXA appendicular skeleton IMPRESSION: 1. DIAGNOSIS: Normal bone density based on the lowest T-score value of -0.3 in the femoral neck applying World Health Organization criteria. 2. 10-YEAR FRACTURE RISK PREDICTION, FRAX: According to the guidelines, FRAX calculation should only be performed on patients in the osteopenia bone density category. Therefore, FRAX was not performed on this patient. 3. Treatment Recommendations: NOF guidelines recommend consideration for treatment in postmenopausal women and men age 50 and older presenting with the following: -A hip or vertebral (clinical or morphometric) fracture. -T-score less than or equal to -2.5 at the femoral neck or spine after appropriate evaluation to exclude secondary causes. -Low bone mass at the hip or spine and a 10-year fracture probability by FRAX of greater than or equal to 3% for hip fracture or greater than or equal to 20% for major osteoporotic fracture based on the [place] adapted WHO algorithm. 4. Other Recommendations: All treatment decisions require clinical judgment and consideration of individual patient factors, including patient preferences, comorbidities, previous drug use, risk factors not captured in the FRAX model (e.g. frailty, falls, vitamin D deficiency, increased bone turnover, interval significant decline in bone density) and possible under or overestimation of fracture risk by FRAX. FUTURE SCAN RECOMMENDATION: People with diagnosed cases of osteoporosis or at high risk for fracture should have regular bone mineral density tests. For patients eligible for Medicare, routine testing is allowed once every 2 years. The testing frequency can be increased to one year for patients who have rapidly progressing disease, those who are receiving or discontinuing medical therapy to restore bone mass, or have additional risk factors.
== END 2022-01-20 14:20 | disposition home or self-care (01) ==
LOC: HO.MAMMO 14:19
PROVIDERS: PCP Internal Medicine; Visit Provider Internal Medicine
DX: Z86.39 Personal history of other endocrine, nutritional and metabolic disease (principal)
CPT/HCPCS: 77081

== ENCOUNTER 2022-01-21 08:48 | Outpatient (REF) | payer OTHER, SELFPAY ==
--- NOTE | ~2022-01-21 | US_ITS ---
EXAMINATION: US FINE-NEEDLE ASPIRATION OF CERVICAL LYMPH NODES, BILATERAL CLINICAL INFORMATION: Abnormal-appearing bilateral cervical lymph nodes in patient status post thyroid cancer. COMPARISON: 12/17/2021 and studies dating back to 11/15/2018. TECHNIQUE: Ultrasound-guided fine-needle aspiration of bilateral cervical lymph nodes. FINDINGS: Informed consent was obtained from the patient prior to the procedure. During this process, the procedure and potential alternatives were explained, along with the intended outcome and benefits. The risks of the procedure, as well as the risk of not doing the procedure, were discussed. The patient was given the opportunity to ask questions regarding the procedure and appeared competent to make medical decisions. A signed consent form which documents this discussion was placed in the medical record. Using sterile technique and ultrasound guidance, fine needle aspiration biopsy of a right level II abnormal-appearing lymph node with maximum dimension of 2.2 cm was performed with 5 passes with 25-gauge needles performed. Using sterile technique and ultrasound guidance, 4 passes were made into a left neck level II lymph node measuring 1.5 cm in length. Pathologist was present for the procedure. US/US guided fine needle asp add IMPRESSION: Bilateral cervical lymph node fine-needle aspiration biopsies as described.
--- NOTE | ~2022-01-21 | US_ITS ---
EXAMINATION: US FINE-NEEDLE ASPIRATION OF CERVICAL LYMPH NODES, BILATERAL CLINICAL INFORMATION: Abnormal-appearing bilateral cervical lymph nodes in patient status post thyroid cancer. COMPARISON: 12/17/2021 and studies dating back to 11/15/2018. TECHNIQUE: Ultrasound-guided fine-needle aspiration of bilateral cervical lymph nodes. FINDINGS: Informed consent was obtained from the patient prior to the procedure. During this process, the procedure and potential alternatives were explained, along with the intended outcome and benefits. The risks of the procedure, as well as the risk of not doing the procedure, were discussed. The patient was given the opportunity to ask questions regarding the procedure and appeared competent to make medical decisions. A signed consent form which documents this discussion was placed in the medical record. Using sterile technique and ultrasound guidance, fine needle aspiration biopsy of a right level II abnormal-appearing lymph node with maximum dimension of 2.2 cm was performed with 5 passes with 25-gauge needles performed. Using sterile technique and ultrasound guidance, 4 passes were made into a left neck level II lymph node measuring 1.5 cm in length. Pathologist was present for the procedure. US/US guided fine needle asp IMPRESSION: Bilateral cervical lymph node fine-needle aspiration biopsies as described.
[2022-01-21] MEDS: Lidocaine HCl 1 % MPF 5 ML VIAL 2 ML SUBCUT ×2 (10:43→10:45)
[2022-01-27 21:05] LABS: Thyroglobulin, Fine Needle Asp <0.1 ng/mL
== END 2022-01-21 08:49 | disposition home or self-care (01) ==
LOC: HO.US 08:48
PROVIDERS: Radiology Diagnostic Radiology; Visit Provider Internal Medicine
DX: R59.0 Localized enlarged lymph nodes (principal)
CPT/HCPCS: 10005; 10006; 36415; 38505; 76942; 84432; 88172; 88173; 88177; 88184; 88185; 88305

== ENCOUNTER 2022-05-31 13:59 | Outpatient (REF) | payer OTHER, SELFPAY ==
--- NOTE | ~2022-05-31 | CT_ITS ---
EXAMINATION: CT CHEST WITHOUT CONTRAST CLINICAL INFORMATION: Hurthle cell carcinoma with lung metastases COMPARISON: CT chest 01/18/2022 TECHNIQUE: Multidetector volumetric CT imaging of the chest was done. Axial MIP volume rendering provided. Sagittal and coronal reformatted images were obtained. This CT examination was performed using dose optimization techniques as appropriate, variously including the following: *Automated exposure control *Adjustment of mA and/or kV according to patient size (this includes techniques or standardized protocols for targeted exams where dose is matched to indication/reason for exam; i.e. extremities or head) *Use of iterative reconstruction technique DLP: 188 mGy-cm FINDINGS: LUNGS: No new or suspicious pulmonary nodules. Couple tiny sub-4 mm calcified granulomas noted in the right an left lower lobes, unchanged. Unchanged mild linear subpleural scarring in the posterior right lower lobe. No airspace consolidation. Central through segmental airways are clear. Variant azygous fissure/lobe noted. MEDIASTINUM: No cardiomegaly or pericardial effusion. No mediastinal or hilar lymphadenopathy. Status post thyroidectomy with surgical clips in place. CORONARY ARTERY CALCIFICATION: None visualized on this study. PLEURA: There is no pleural effusion. No pleural mass or thickening. AXILLA: No lymphadenopathy. UPPER ABDOMEN: Mild hepatic hypoattenuation/steatosis. Imaged upper abdominal viscera otherwise unremarkable. OSSEOUS STRUCTURES: No acute fracture or suspicious osseous lesion. Mild multilevel degenerative disc disease. CT/CT chest wo IV con IMPRESSION: 1. No new or suspicious pulmonary nodules to suggest pulmonary metastasis. 2. No acute pulmonary process. 3. Mild hepatic steatosis.
== END 2022-05-31 14:00 | disposition home or self-care (01) ==
LOC: HO.CT 13:59
PROVIDERS: Visit Provider Internal Medicine Medical Oncology
DX: C73 Malignant neoplasm of thyroid gland (principal)
CPT/HCPCS: 71250

== ENCOUNTER 2022-09-23 15:46 | Outpatient (REF) | payer OTHER, SELFPAY ==
[2022-09-23 16:10] LABS: MANUAL DIFF FLAG NO
[2022-09-23 16:25] LABS: Basophils Percent Auto 0.5 % (0-2); Eosinophils Absolute Auto 0.1 X10*3/uL (0.0-0.4); Eosinophils Percent Auto 0.8 % (0-4); Hematocrit 39.3 % (37.0-47.0); Hemoglobin 13.1 g/dl (12.0-16.0); Imm Gran Abs Auto 0.03 X10*3/uL (0.00-0.03); Imm Gran Pct Auto 0.3 % (0.0-0.4); Lymphocytes Absolute Auto 2.4 X10*3/uL (1.2-4.9); Lymphocytes Percent Auto 27.8 % (20-40); Mean Corpuscular HGB Conc 33.3 g/dl (31.0-35.0); Mean Corpuscular Hemoglobin 29.4 pg (27.0-33.0); Mean Corpuscular Volume 88.1 fL (80.0-98.0); Monocytes Absolute Auto 0.6 X10*3/uL (0.1-1.2); Neutrophils Absolute Auto 5.5 x10*3/uL (2.0-8.3); Neutrophils Percent Auto 63.6 % (45-73); Platelet Count 325 X10*3/uL (160-400); Red Blood Count 4.46 X10*6/uL (4.20-5.50); Red Cell Distribution Width 12.7 % (11.0-16.0); White Blood Count 8.6 X10*3/uL (4.8-10.8)
[2022-09-23 17:16] LABS: Free T4 (Free Thyroxine) 1.02 ng/dL (0.71-1.85); Thyroid Stimulating Hormone 1.19 uIU/mL (0.32-4.0)
[2022-09-25 04:58] LABS: Thyroglobulin 0.1 ng/mL; Thyroglobulin Antibodies <1 IU/mL (< or = 1)
[2022-09-28 02:23] LABS: Thyroglobulin Antibody <1 IU/mL (<=1)
[2022-09-28 05:14] LABS: Thyroglobulin Level 0.1 ng/mL
== END 2022-09-23 15:47 | disposition home or self-care (01) ==
LOC: HO.LAB 15:46
PROVIDERS: Internal Medicine Medical Oncology; PCP Internal Medicine; Visit Provider Internal Medicine
DX: C73 Malignant neoplasm of thyroid gland (principal); E89.0 Postprocedural hypothyroidism; Z85.850 Personal history of malignant neoplasm of thyroid
CPT/HCPCS: 36415; 84432; 84439; 84443; 85025; 86800

== ENCOUNTER → 2022-10-20 14:23 | Outpatient (BNVA) | payer OTHER, SELFPAY | PROVIDERS: PCP Internal Medicine; Referring Provider Internal Medicine; Visit Provider Surgery | DX: Z13.89 Encounter for screening for other disorder (principal) ==

== ENCOUNTER → 2022-11-10 08:16 | Outpatient (BNVA) | payer OTHER, SELFPAY | PROVIDERS: PCP Internal Medicine; Visit Provider Physician Assistant | DX: Z13.89 Encounter for screening for other disorder (principal) ==

== ENCOUNTER 2022-11-13 02:12 | Emergency (ER) | payer OTHER, SELFPAY ==
[2022-11-13 02:17] VITALS: BP 154/107; PULSE 92; RESP 16; TEMP 36.7; O2SAT 96; BMI 31.9
[2022-11-13 02:47] LABS: IDNOW Serial# 6674DD1D; Strep A Nucleic Acid Negative (Negative)
[2022-11-13] MEDS: Ibuprofen 400 MG TABLET PO (02:49)
[2022-11-13] MEDS: Throat Lozenge, Medicated LOZENGE 1 LOZENGE MUCOUS MEM (02:50)
[2022-11-13] MEDS: Acetaminophen 325 MG TABLET 975 MG PO (02:50)
[2022-11-13 02:55] LABS: IDNOW Serial# 16C4AD1C; Influenza A Negative (Negative); Influenza B2 Negative (Negative)
[2022-11-13 02:56] LABS: COVID-19 Test Negative (Negative); IDNOW Serial# BCCEAD1C
--- NOTE | 2022-11-13 03:20 | ED_ITS ---
HPI - General Adult General Chief complaint: General Medical Stated complaint: Sore throat Time Seen by Provider: 11/13/22 02:56 Source: patient Mode of arrival: ambulatory History of Present Illness HPI narrative: 52-year-old female who presents with sore throat for couple of days as well as sinus congestion but otherwise denies nausea, vomiting, diarrhea or fever. Related Data Home Medications Medication Instructions Recorded Confirmed lancets 33 gauge #100 ea 07/10/20 11/10/22 metformin 850 mg tablet 500 mg PO BID 05/20/22 11/10/22 Previous Rx's Medication Instructions Recorded blood sugar diagnostic (FreeStyle #25 ea 10/10/20 Precision Papa Strips) clobetasol 0.05 % scalp solution 1 appl topical BID PRN Seborrheic 04/06/22 dermatitis 30 days #50 mL clotrimazole-betamethasone 1 1 appl topical ONCE 30 days #45 04/06/22 %-0.05 % topical cream grams glipizide 5 mg-metformin 500 mg 1 tab PO BID 90 days #180 tabs 04/06/22 tablet blood sugar diagnostic (IFCO SystemsTouch #100 ea 06/15/22 Verio test strips) flash glucose scanning reader #1 ea 06/15/22 (FreeStyle Jane 2 [place]) flash glucose sensor (UbimoStyle #2 ea 06/15/22 Jane 2 Sensor kit) lancets 33 gauge (IFCO SystemsTouch Delica #100 ea 06/15/22 Plus Lancet) lisinopril 20 mg tablet 20 mg PO DAILY 90 days #90 tabs 09/02/22 omeprazole 40 mg capsule,delayed 40 mg PO DAILY 90 days #90 caps 09/03/22 release valacyclovir 500 mg tablet 500 mg PO ONCE PRN herpes 09/03/22 labialis 90 days #90 tabs atorvastatin 40 mg tablet 40 mg PO BEDTIME 90 days #90 tabs 09/07/22 levothyroxine 137 mcg tablet 137 mcg PO DAILY 30 days #30 tabs 09/30/22 insulin glargine U-300 conc 300 28 unit (0.0933 mL) subcut BEDTIME 10/06/22 unit/mL (1.5 mL) subcutaneous pen 90 days #8.397 mL pen needle, diabetic 32 gauge x #100 ea 10/06/22 (BD Gabriela 2nd Gen Pen Needle) bisacodyl 5 mg tablet,delayed 10 mg PO ONCE colonoscopy prep 1 11/10/22 release (Dulcolax (bisacodyl)) day #2 tabs docusate sodium 100 mg capsule 200 mg PO BEDTIME #60 caps 11/10/22 (Colace) methylcellulose (laxative) 500 mg 500 mg PO BID #60 tabs 11/10/22 tablet (Citrucel) polyethylene glycol 3350 17 238 g PO ONCE 1 day #238 grams 11/10/22 gram/dose oral powder (Miralax) Allergies Allergy/AdvReac Type Severity Reaction Status Date / Time hydromorphone [From DILAUDID] AdvReac Severe PROJECTILE Verified 11/10/22 08:31 VOMITING Review of Systems Review of Systems: Pertinent positives and negatives as stated in HPI [facility] Past Medical History Source: nursing notes reviewed Medical History Cervical lymphadenopathy Diabetes type 2, controlled Diabetes type 2, uncontrolled Dyslipidemia Headache syndrome Herpes labialis History of primary hyperparathyroidism History of thyroid cancer Hypertension, essential Incurved toenail Lipid disorder Obesity (BMI 30-39.9) Post-surgical hypothyroidism Primary thyroid cancer Psoriasis Seborrheic dermatitis of scalp Vitamin D deficiency Surgical History History of back surgery History of partial hysterectomy History of partial thyroidectomy Hx of thyroidectomy Family History Family History Father Diabetes Hypertension Mother Degenerative arthritis Hypertension Maternal Grandmother Colon cancer Other Substance use disorder Social History Social History Household Members: Children Household Members Other:: single- Housing: House Are you a primary plant care worker to a significant other at home: No Do you presently have visiting nurse or other home services: No Alcohol intake: never Patient Tobacco Use Status: Never used Tobacco e-Cigarette/Vaping Use: Never Used Advance Directives: No Advance Directives Information Provided: No service: No Current occupational status: employed 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 GENERAL: Well developed, well nourished, in no acute distress. HEAD: Normocephalic/atraumatic EYES: PERRLA, EOMI EARS: Ext canals without abnormality, TMs non-bulging and non-erythematous NOSE: Nares patent bilateral OROPHARYNX: no oral lesions noted, posterior pharynx clear, no erythema or tonsillar enlargement NECK: Supple, no adenopathy LUNGS: Normal breath sounds. No adventitious sounds or accessory muscle use. SpO2<96> CARDIOVASCULAR: Regular rate and rhythm without noted murmurs ABDOMEN: Soft, non-tender, non-distended with bowel sounds. MUSCULOSKELETAL: No tenderness, deformities, or effusions noted on gross inspection. EXTREMITIES: No cyanosis, clubbing or edema. SKIN: Inspection of the skin reveals no rashes NEUROLOGIC: Alert and oriented x 4. Strength and sensation to light touch were grossly intact x 4. Medications Administered Discontinued Medications Generic Name Dose Route Start Last Admin Trade Name Freq PRN Reason Stop Dose Admin Acetaminophen 975 mg 11/13/22 02:17 11/13/22 02:50 Acetaminophen 325 Mg Tablet PO 11/13/22 02:18 975 mg ONCE ONE Administration Benzocaine 1 lozenge 11/13/22 02:16 11/13/22 02:50 Throat Lozenge, Medicated Lozenge MUCOUS MEM 11/13/22 02:17 1 lozenge ONCE ONE Administration Ibuprofen 400 mg 11/13/22 02:17 11/13/22 02:49 Ibuprofen 400 Mg Tablet PO 11/13/22 02:18 400 mg ONCE ONE Administration Medical Decision Making Medical Decision Making [facility] Narrative: 52-year-old female who presents with complaints pharyngitis and on review of all investigations my interpretation is this is likely a viral pharyngitis and she was informed of all results and received combination analgesics as well as Cepacol while here in the emergency room. She is otherwise discharged home in stable condition. Differential Diagnosis Please see the discussion above Lab Data Please see the discussion above Labs: Lab Results 11/13/22 11/13/22 11/13/22 Range/Units 02:30 02:30 02:30 COVID-19 (HUGO) Negative (Negative) COVID-19 Clin Com See Note Influenza Type A (JAMES) Negative (Negative) Influenza Type B (JAMES) Negative (Negative) Influenza A & B Note See Note S. pyogenes GrpA JAMES Negative (Negative) External Record Review External record reviewed: Outpatient record and Prior outpatient labs Critical Care Time Critical Care Time Critical Care Time: Yes Total Critical Care Time: 30 Attestation: I personally attest to this time spent taking care of the patient. Discharge Plan Discharge Clinical Impression: Viral pharyngitis Patient Disposition: Home, Self-Care Instructions: Pharyngitis (ED) Additional Instructions: 1. Recommend saline gargles, 3 times a day the next 3 days. 2. Recommend [id number] Tylenol/ibuprofen/Cepacol for symptom relief and stay well hydrated with water. 3. Follow-up with your primary care provider in the next 3-4 days. Return to the ER for any worsening symptoms. Prescriptions: No Action lisinopril 20 mg tablet 20 mg PO DAILY 90 Days Qty: 90 0RF omeprazole 40 mg capsule,delayed release(DR/EC) 40 mg PO DAILY 90 Days Qty: 90 0RF valacyclovir 500 mg tablet 500 mg PO ONCE PRN (Reason: herpes labialis) 90 Days Qty: 90 0RF Rx Instructions: take 4 tablets 12 hours apart for 1 day for acute flare up atorvastatin 40 mg tablet 40 mg PO BEDTIME 90 Days Qty: 90 0RF Rx Instructions: Dose increased levothyroxine 137 mcg tablet 137 mcg PO DAILY 30 Days Qty: 30 3RF insulin glargine U-300 conc 300 unit/mL (1.5 mL) insulin pen 28 unit subcut BEDTIME 90 Days Qty: 8.397 3RF (DME) pen needle, diabetic [BD Gabriela 2nd Gen Pen Needle] 32 gauge x 5/32 needle See Rx Instructions .MEDSUPPLY Qty: 100 3RF Rx Instructions: daily metformin 850 mg tablet 500 mg PO BID glipizide-metformin 5-500 mg tablet 1 tab PO BID 90 Days Qty: 180 1RF clobetasol 0.05 % solution 1 appl topical BID PRN (Reason: Seborrheic dermatitis) 30 Days Qty: 50 5RF clotrimazole-betamethasone 1-0.05 % cream 1 appl topical ONCE 30 Days Qty: 45 0RF (DME) lancets 33 gauge misc See Rx Instructions .ROUTE .MEDSUPPLY Qty: 100 Rx Instructions: As directed (DME) FreeStyle Precision Papa Strips Strip See Rx Instructions .ROUTE .MEDSUPPLY Qty: 25 6RF Rx Instructions: once a day for calibration Citrucel 500 mg tablet 500 mg PO BID Qty: 60 5RF docusate sodium [Colace] 100 mg capsule 200 mg PO BEDTIME Qty: 60 5RF bisacodyl [Dulcolax (bisacodyl)] 5 mg tablet,delayed release (DR/EC) 10 mg PO ONCE 1 Days Qty: 2 0RF Rx Instructions: Take 2 tablets by mouth at 12:00pm the day before your procedure. polyethylene glycol 3350 [Miralax] 17 gram/dose powder 238 g PO ONCE 1 Days Qty: 238 0RF Rx Instructions: Take as directed by mouth the day before your procedure. (DME) OneTouch Verio test strips Strip See Rx Instructions .Route Qty: 100 11RF Rx Instructions: 4x daily (DME) lancets [OneTouch Delica Plus Lancet] 33 gauge misc See Rx Instructions .Route Qty: 100 11RF Rx Instructions: 4x daily (DME) FreeStyle Jane 2 Sensor Kit See Rx Instructions .ROUTE .MEDSUPPLY Qty: 2 11RF Rx Instructions: Once every 14 days (DME) FreeStyle Jane 2 [place] Misc See Rx Instructions .ROUTE .MEDSUPPLY Qty: 1 0RF Rx Instructions: As directed Referrals: Yvette Chopra MD [Primary Care Provider] -
== END 2022-11-13 04:18 | disposition home or self-care (01) ==
PROVIDERS: Emergency Provider Student in an Organized Health Care Education/Training Program; PCP Internal Medicine
DX: J02.9 Acute pharyngitis, unspecified (principal); Z20.822 Contact with and (suspected) exposure to COVID-19; E11.9 Type 2 diabetes mellitus without complications; I10 Essential (primary) hypertension; E78.5 Hyperlipidemia, unspecified; Z79.02 Long term (current) use of antithrombotics/antiplatelets; Z79.4 Long term (current) use of insulin; Z79.899 Other long term (current) drug therapy
CPT/HCPCS: 87502; 87635; 87651; 99283

== ENCOUNTER 2022-11-30 08:48 | Outpatient (REF) | payer OTHER, SELFPAY ==
--- NOTE | ~2022-11-30 | MM_ITS ---
EXAMINATION: MM SCREENING DIGITAL BREAST TOMOSYNTHESIS, BILATERAL CLINICAL INFORMATION: Screening. Asymptomatic. Prior remote reduction mammoplasty, 1996. The lifetime risk of breast cancer based on the Tyrer-Cuzick Model is 8%. COMPARISON: Mammography: 11/24/2021, 08/27/2020, 08/12/2019. TECHNIQUE: Digital breast tomosynthesis is performed in both the craniocaudal and mediolateral oblique views along with computer-aided detection (CAD). Synthesized 2D images are generated from the tomosynthesis. FINDINGS: There are scattered areas of fibroglandular density (ACR BI-RADS breast composition Category b). There are no significant masses, abnormal calcifications, or other abnormalities. No architectural abnormality or developing density or significant change from prior studies. The axilla and skin contours are unremarkable. MM/MM tomosynthesis screening BI IMPRESSION: No mammographic evidence of malignancy. ASSESSMENT: BI-RADS 1: Negative RECOMMENDATION: Routine annual mammography screening. This patient's information was entered into a reminder system with a target due date for their next mammogram.
== END 2022-11-30 08:49 | disposition home or self-care (01) ==
LOC: HO.MAMMO 08:48
PROVIDERS: PCP Internal Medicine; Visit Provider Internal Medicine
DX: Z12.31 Encounter for screening mammogram for malignant neoplasm of breast (principal)
CPT/HCPCS: 77063; 77067

== ENCOUNTER 2022-12-20 10:30 | Day surgery (SDC) | payer OTHER, SELFPAY ==
[2022-12-15 15:27] VITALS: BMI 32.0
--- NOTE | 2022-12-20 08:59 | P.CONAN_ITS ---
[facility] Active Problems Active Problems: All Active Problems (Updated 11/18/22 @ 09:19 by Jabier Alvarez MD) Heartburn (Acute) Chronic constipation (Acute) Incurved toenail (Acute) Colon cancer screening (Acute) Insulin dependent type 2 diabetes mellitus (Acute) Cervical lymphadenopathy (Acute) Vitamin D deficiency (Acute) History of thyroid cancer (Acute) Hurthle cell carcinoma (Acute) Herpes labialis (Acute) Obesity due to excess calories (Acute) Right lumbar radiculitis (Acute) Lumbar radiculopathy (Acute) Diabetes type 2, uncontrolled (Acute) Herpes labialis (Acute) Lipid disorder (Acute) Seborrheic dermatitis of scalp (Acute) Psoriasis (Acute) Hypertension, essential (Acute) Headache syndrome (Acute) Obesity (BMI 30-39.9) (Acute) History of primary hyperparathyroidism (Acute) Dyslipidemia (Acute) Diabetes type 2, controlled (Acute) Post-surgical hypothyroidism (Acute) Primary thyroid cancer (Acute) Past Medical History Medical History Cervical lymphadenopathy Diabetes type 2, controlled Diabetes type 2, uncontrolled Dyslipidemia Headache syndrome Herpes labialis History of primary hyperparathyroidism History of thyroid cancer Hypertension, essential Incurved toenail Lipid disorder Obesity (BMI 30-39.9) Post-surgical hypothyroidism Primary thyroid cancer Psoriasis Seborrheic dermatitis of scalp Vitamin D deficiency Family History Family History Father Diabetes Hypertension Mother Degenerative arthritis Hypertension Maternal Grandmother Colon cancer Other Substance use disorder Family history of problems with anesthesia: No Surgical History Surgical History History of back surgery History of partial hysterectomy History of partial thyroidectomy Hx of thyroidectomy History of Problems with Anesthesia: No Social History Social History Household Members: Children Household Members Other:: single- Housing: House Are you a primary resident care manager rn to a significant other at home: No Do you presently have visiting nurse or other home services: No Alcohol intake: never Patient Tobacco Use Status: Never used Tobacco e-Cigarette/Vaping Use: Never Used Use of substances other than those prescribed or required for medical reasons: No Are you DNR?: No Advance Directives: No Advance Directives Information Provided: Yes service: No Current occupational status: employed 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 Hearing needs: No Vision needs: Yes (contacts) Meds Allergies Allergy/AdvReac Type Severity Reaction Status Date / Time hydromorphone [From DILAUDID] AdvReac Severe PROJECTILE Verified 12/15/22 15:20 VOMITING Active Medications: Current Medications Lactated Ringer's (Lr) 1,000 mls @ 50 mls/hr IVCONT .Q20H AIRAM Home Medications Medication Instructions Recorded Confirmed Last Taken Type lancets 33 gauge #100 ea 07/10/20 11/10/22 Unknown History Exam Exam Date and Time: December 20, 2022 0859 Height,Weight and Vital Signs: Height 5 ft 8 in Weight 95.5 kg Airway Mallampati Class: II TM Dist: >3cm Neck ROM: Full Heart: rrr Lungs: cta Assessment and Plan Assessment Anesthesia Assessment: Anesthesia Plan Discussed and Chart Reviewed Final Anesthetic Review Family History of Problems with Anesthesia: No History of Problems with Anesthesia: No NPO: Yes ASA Class: II Final Preanesthetic Review: No Changes in Pt Med Stat, Meds/Allgs Chart Reviewed and Consent Obtained/Reviewed Patient Risk: Intermediate Procedure Risk: Intermediate Anesthetic Plan Anesthetic Plan: MAC: Disposition: Standard PACU
--- NOTE | 2022-12-20 10:54 | MHC.SHP ---
Pre-Procedural Eval Section A Date of Service: 12/20/22 The patient is an INPATIENT: No The History & Physical has been completed within 30 days and I have reviewed it.: No Section B Chief Complaint: screening,other constipation, GERD, dysphagia Details of Present Illness: screening,other constipation, GERD, dysphagia Relevant Family History (Specify if Yes): Yes Relevant Social History: None Present Medications: see Short Stay Collaborative assessment Medical History: Significant History (Diabetes type 2, uncontrolled Dyslipidemia Headache syndrome Herpes labialis History of primary hyperparathyroidism History of thyroid cancer Hypertension, essential Incurved toenail Lipid disorder Obesity (BMI 30-39.9) Post-surgical hypothyroidism Primary thyroid cancer Psoriasis) History of Previous Operations: Relevant previous surgery/procedure and date(s) (History of back surgery History of partial hysterectomy History of partial thyroidectomy Hx of thyroidectomy) Allergies: Allergies Allergy/AdvReac Type Severity Reaction Status Date / Time hydromorphone [From DILAUDID] AdvReac Severe PROJECTILE Verified 12/15/22 15:20 VOMITING Review of Systems Sugical H&P ROS: Negative: Constitution, Cardiovascular and Respiratory and Yes, Specify: Gastrointestinal (GERD, dysphagia, ) Exam Surgical H&P Exam: Normal: Heart, Normal: Lungs, Normal: Extremities and Normal: Abdomen Plan Diagnosis/Plan: Unchanged I have reviewed the history and physical and performed a pertinent physical examination on my patient. No changes have occurred unless specified. Time Spent With Patient Time: Total time managing care of this patient today ____ minutes.
[2022-12-20 11:11] VITALS: BMI 31.9
[2022-12-20 11:26] VITALS: BP 149/96; PULSE 84; RESP 16; TEMP 37.2; O2SAT 97
[2022-12-20] MEDS: Lactated Ringers 1,000 ML 50 ML IVCONT (11:33)
[2022-12-20 11:42] LABS: Glucose, Whole Blood 143 mg/dL (60-115)
--- NOTE | 2022-12-20 11:44 | W.PM.OPN ---
Operative Note Operative Note Date of Service: 12/20/22 Narrative: FLEXIBLE TRANSORAL UPPER GASTROINTESTINAL ENDOSCOPY WITH BIOPSIES AND ESOPHAGEAL BALLOON DILATION AND COLONOSCOPY TILL CECUM WITH SNARE POLYPECTOMY Pre-op diagnosis: Colon cancer screening, constipation, GERD, dysphagia Post-op diagnosis: GERD, Gastritis? Endoscopist:? Chico Best MD Anesthesia:?MAC UPPER ENDOSCOPY Consent: Indications for the procedure and potential complications of bleeding, perforation, reaction to medications and missed diagnosis were discussed with the patient and informed consent was obtained. Instrument: Olympus GIF H 190 mid size upper endoscope Monitoring: Vital signs and clinical assessment, continuous EKG monitoring, Pulse oximetry, Carbon Dioxide monitoring and blood pressure monitoring were done throughout the procedure. Procedure: The patient was placed in the left lateral decubitis position and pre-procedure medications were administered and a bite block was placed. The endoscope was inserted into the mouth and advanced under direct vision to the third part of duodenum. A careful inspection was made as the upper endoscope was withdrawn including a retroflexed examination of the proximal stomach; Findings and interventions are described below. Findings: Larynx: Normal Esophagus: GE junction at 38 cms. No esophagitis, Kerr's, stricture or ring. Biopsies obtained from proximal esophagus to check for EOE. Esophageal balloon dilation was performed with 20 mm (60 F) CRE balloon x 60 seconds. Stomach: Mild gastric erythema. Biopsies were obtained. Grade 2 flap valve on retroflexed examination of the cardia. Duodenum: Normal bulb and descending duodenum Intervention: Biopsies and esophageal balloon dilation as noted above COLONOSCOPY PROCEDURE NOTE Consent: Indications for the procedure and potential complications of bleeding, perforation, reaction to medications and missed diagnosis were discussed with the patient and informed consent was obtained. Instrument: Olympus PCF H 190 L variable stiffness pediatric colonoscope Monitoring: Vital signs and clinical assessment, intermittent blood pressure monitoring, continuous EKG monitoring, Pulse oximetry and Carbon Dioxide monitoring were done throughout the procedure. Colon withdrawl time was minutes. Procedure: The patient was placed in the left lateral decubitis position and pre-procedure medications were administered. After a digital rectal examination of the ano-rectum, the video colonoscope was inserted into the rectum and advanced through the colon to the cecum. The colonoscope was slowly withdrawn in a retrograde panoramic fashion and the colon mucosa was carefully examined including a retroflexed view of the rectum. Findings and interventions are described below. Procedure Difficulty: : Without difficulty Findings: Terminal Ileum: Not evaluated Cecum: Normal Ascending Colon: Normal Transverse Colon: A 12-15 mm sessile polyp - removed with a hot snare. A 10 mm sessile polyp removed with a cold snare. Some bleeding noted at polypectomy site - controlled with cautery using the snare tip. Descending Colon: Normal Sigmoid Colon: Moderate diverticulosis Rectum: Normal Ano-rectum: Moderate internal hemorrhoids Colon preparation: Excellent Impression and Post Procedure Diagnosis: Endoscopy Findings: ESOPHAGUS: GE junction at 38 cms. No esophagitis, Kerr's or stricture. Biopsies obtained from proximal esophagus to check for EOE. Esophageal balloon dilation was performed with 20 mm (60 F) CRE baloon x 60 seconds. STOMACH: Gastritis Colonoscopy Findings: Two medium sized polyps removed Moderate diverticulosis seen in the sigmoid colon Moderate hemorrhoids on retroflexed exam. Plan: Await pathology results Patient has an appointment on 01/06/23 in the GI Clinic with KARTHIK Haines. Repeat Colonoscopy interval based on path results - in 3-5 years if polyps are adenomatous and 10 years if polyps are hyperplastic. Above findings were reviewed with the patient and GERD, colon polyps and diverticulosis handouts were given in the discharge area
[2022-12-20 12:46] VITALS: BP 134/92; PULSE 68; RESP 16; TEMP 36.6; O2SAT 100
[2022-12-20 13:01] VITALS: BP 145/101; PULSE 79; RESP 16; O2SAT 100
[2022-12-20] MEDS: ondansetron HCL 4 MG/2 ML VIAL IVPUSH (13:01)
[2022-12-20 13:15] VITALS: BP 142/89; PULSE 67; RESP 16; O2SAT 98
[2022-12-20 13:30] VITALS: BP 144/88; PULSE 70; RESP 14; TEMP 36.6; O2SAT 99
== END 2022-12-20 14:13 | disposition home or self-care (01) ==
PROVIDERS: PCP Internal Medicine; Visit Provider Internal Medicine Gastroenterology
PROC: (CPT 45385; principal; 2022-12-20 12:00)
DX: Z12.11 Encounter for screening for malignant neoplasm of colon (principal); D12.3 Benign neoplasm of transverse colon; K57.30 Diverticulosis of large intestine without perforation or abscess without bleeding; K64.8 Other hemorrhoids; K59.09 Other constipation; R13.10 Dysphagia, unspecified; K21.9 Gastro-esophageal reflux disease without esophagitis; K29.70 Gastritis, unspecified, without bleeding; R12 Heartburn; E11.9 Type 2 diabetes mellitus without complications; I10 Essential (primary) hypertension; Z85.850 Personal history of malignant neoplasm of thyroid; Z79.4 Long term (current) use of insulin; Z79.899 Other long term (current) drug therapy
CPT/HCPCS: 45385; 43249; 43239; 82947; 88305; 88342; C1726; J2405

== ENCOUNTER → 2023-01-05 13:45 | Outpatient (BNVA) | payer OTHER, SELFPAY | PROVIDERS: PCP Internal Medicine; Visit Provider Internal Medicine | DX: Z13.89 Encounter for screening for other disorder (principal) ==

== ENCOUNTER → 2023-01-12 13:38 | Outpatient (BNVA) | payer OTHER, SELFPAY | PROVIDERS: PCP Internal Medicine; Visit Provider Physician Assistant | DX: Z13.89 Encounter for screening for other disorder (principal) ==

== ENCOUNTER → 2023-02-14 08:44 | Outpatient (BNVA) | payer OTHER, SELFPAY | PROVIDERS: PCP Internal Medicine; Visit Provider Internal Medicine | DX: C73 Malignant neoplasm of thyroid gland (principal) | CPT/HCPCS: 96372 ==

== ENCOUNTER 2023-02-15 10:24 | Outpatient (REF) | payer OTHER, SELFPAY ==
[2023-02-15 13:55] LABS: HCG Quantitative < 2 mIU/mL
== END 2023-02-15 10:25 | disposition home or self-care (01) ==
LOC: HO.10HDL 10:24
PROVIDERS: Visit Provider Internal Medicine
DX: Z85.850 Personal history of malignant neoplasm of thyroid (principal)
CPT/HCPCS: 36415; 84702; 96372

== ENCOUNTER 2023-02-16 08:58 | Outpatient (REF) | payer OTHER, SELFPAY ==
[2023-02-16 10:15] LABS: Free T4 (Free Thyroxine) 0.98 ng/dL (0.71-1.85); Thyroid Stimulating Hormone 67.21 uIU/mL (0.32-4.0)
[2023-02-20 03:19] LABS: Thyroglobulin Antibody <1 IU/mL (<=1)
[2023-02-20 05:58] LABS: Thyroglobulin Level 0.2 ng/mL
== END 2023-02-16 08:59 | disposition home or self-care (01) ==
LOC: HO.LAB 08:58
PROVIDERS: PCP Internal Medicine; Visit Provider Internal Medicine
DX: Z85.850 Personal history of malignant neoplasm of thyroid (principal)
CPT/HCPCS: 36415; 84432; 84439; 84443; 86800

== ENCOUNTER 2023-07-19 08:13 | Outpatient (AMB) | payer OTHER, SELFPAY ==
--- NOTE | 2023-07-19 08:27 | MHC.PC.OV ---
Vital Signs 07/19/23 08:28 Height 5 ft 8 in Weight 216 lb BMI 32.8 BP 148/90 H Blood Pressure Location Lt brachial Position Sitting Pulse 99 Pulse Source Pulse Oximeter Pulse Oximetry (%) 98 Oxygen Delivery Method Room Air Intake Visit Reasons: PE Allergies hydromorphone [From DILAUDID] Adverse Reaction (Severe, Verified 07/19/23 08:28) PROJECTILE VOMITING Medication List - Last Reconciled 07/19/23 by Yvette Chopra MD atorvastatin 40 mg PO BEDTIME 90 days blood sugar diagnostic (FreeStyle Precision Papa Strips) once a day for calibration blood sugar diagnostic (Realeyes 3DTouch Verio test strips) 4x daily clobetasol 0.05% 1 appl topical BID PRN 30 days clotrimazole-betamethasone 1-0.05 % 1 appl topical ONCE 30 days docusate sodium (Colace) 200 mg (2 x 100 mg) PO BEDTIME flash glucose scanning reader (MondayOne PropertiesStyle Jane 2 [place]) As directed flash glucose sensor (MondayOne PropertiesStyle Jane 2 Sensor kit) Once every 14 days glipizide-metformin 5-500 mg 1 tab PO BID 90 days hydrocortisone 2.5% (Proctosol HC) 1 appl MA BEDTIME PRN insulin glargine U-300 conc 28 units (0.0933 mL) subcut BEDTIME 90 days lancets As directed lancets (Realeyes 3DTouch Delica Plus Lancet) 4x daily levothyroxine 137 mcg PO DAILY lisinopril 40 mg PO DAILY omeprazole 40 mg PO DAILY 90 days pen needle, diabetic (BD Gabriela 2nd Gen Pen Needle) daily valacyclovir 500 mg PO ONCE PRN 90 days Tobacco use date assessed: 07/19/23 Dental Screening Dental Screen Date: 07/19/23 Did you have a dental visit in the last 12 months?: Yes Did you have a dental problem in the last 6 months where you did not have access to dental care?: No Was dental information given to patient?: Patient has dentist HPI PE HPI Details Patient is 52-year-old female came in today for physical examination Mammogram is up-to-date Colonoscopy was January of this year next colonoscopy will be in 3 years Pap smear is through Dr. Strong at [facility] Patient has been complaining of palpitations within the EKG today which shows normal sinus rhythm with sinus arrhythmia I have placed a referral for her to be evaluated by vegetable i farmworker, I have also ordered echocardiogram meanwhile There is no associated lightheadedness or dizziness Patient does drink a lot of diet Coke which has caffeine in it. I would recommend to cut down further. History of thyroid cancer, patient is seeing an oncologist at [facility] every [address] Alejandra Blood pressure continued to be elevated patient is on lisinopril 40 mg, IM adding hydrochlorothiazide 25 mg She is also due for labs Patient is diabetic and is taking long-acting insulin 28 units and glipizide metformin 5-500 b.i.d. Patient says that when she goes out to eat her morning sugars are high. We talked about the management, patient says that it goes as high as 145. We will wait for hemoglobin A1c before we do any other changes. BMI is elevated at 32.8 patient is trying to lose weight. Follow-up 3 months [facility] Medical History Recurrent thyroid cancer Incurved toenail Cervical lymphadenopathy Vitamin D deficiency History of thyroid cancer Diabetes type 2, uncontrolled Herpes labialis Lipid disorder Seborrheic dermatitis of scalp Psoriasis Hypertension, essential Headache syndrome Obesity (BMI 30-39.9) History of primary hyperparathyroidism Dyslipidemia Diabetes type 2, controlled Post-surgical hypothyroidism Primary thyroid cancer Surgical History History of esophagogastroduodenoscopy (EGD) Hx of colonoscopy History of back surgery History of partial hysterectomy Hx of thyroidectomy History of partial thyroidectomy Family History Father Diabetes Hypertension Mother Degenerative arthritis Hypertension Maternal Grandmother Colon cancer Other Substance use disorder Social History Household Members: Children Household Members Other:: single- Housing: House Are you a primary personal care aide to a significant other at home: No Do you presently have visiting nurse or other home services: No Alcohol intake: never Patient Tobacco Use Status: Never used Tobacco e-Cigarette/Vaping Use: Never Used service: No Current occupational status: employed 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 1. Little interest or pleasure in doing things: not at all 2. Feeling down, depressed, or hopeless: not at all 3. Trouble falling or staying asleep, or sleeping too much: not at all 4. Feeling tired or having little energy: not at all 5. Poor appetite or overeating: not at all 6. Feeling bad about yourself - or that you are a failure or have let yourself or your family down: not at all 7. Trouble concentrating on things, such as reading the newspaper or watching television: not at all 8. Moving or speaking so slowly that other people could have noticed. Or the opposite - being so fidgety or restless that you have been moving around a lot more than usual: not at all 9. Thoughts that you would be better off or of hurting yourself in some way: not at all Total score: 0 Depression Screening Interpretation: Negative Depression Screening Done: Yes 80504 - PHQ-9 Billing: Yes Source: Developed by Drs. Leonidas No, Akanksha Robin, Ej Hamilton and colleagues, with an educational everett from [employer]. Thrive Questionnaire Date Thrive assessed: 07/19/23 I am a: Patient What is your living situation today?: I have a steady place to live Within the past 12 months, did the food you bought not last and you didn't have the money to get more?: Never true Within the past 12 months, did you worry whether your food would run out before you got money to buy more?: Never true Do you have trouble paying for medicines?: No Do you have trouble getting transportation to medical appointments?: No Do you have trouble paying your heating and electricity bill?: No Do you have trouble taking care of your child, family member or friend?: No Do you have trouble with day-to-day activities such as bathing, preparing meals, shopping, managing finances, etc.?: No Are you currently unemployed and looking for a job?: No Are you interested in more education?: No Please select the resources that you would like help with: None Currently or been in a relationship where the following occur: no concerns reported GEE-7 AMB Questionnaire GEE-7 Date GEE - 7 assessed: 07/19/23 Feeling nervous, anxious, or on edge: 0 = Not at all Not being able to stop or control worryin = Not at all Worrying too much about different things: 0 = Not at all Trouble relaxin = Not at all Being so restless that it is hard to sit still: 0 = Not at all Becoming easily annoyed or irritable: 0 = Not at all Feeling afraid as if something awful might happen: 0 = Not at all Total GEE-7 score (0-4 normal; 5-9 mild; 10-14 moderate; 15-21 severe): 0 Source: Developed by Drs. Leonidas No, Akanksha Robin, Ej Hamilton and colleagues, with an educational everett from [employer]. GEE-7 Assessment Billing GEE-7 Assessment Tool: GEE-7 Assessment 62814 Review of Systems Const Denies chills, Denies fever(s) and Denies headache(s) Eyes Denies blurry vision ENT Denies headache(s), Denies nasal discharge, Denies nasal obstruction, Denies odynophagia and Denies sinus pain Card Denies chest pain at rest and Denies chest pain with activity Resp Denies cough and Denies hemoptysis GI Denies diarrhea, Denies odynophagia, Denies vomiting and Denies hematemesis Reports as per HPI Musc Denies abnormal gait Skin/Breast Reports as per HPI Neuro Denies Neuro-related abnormal movements, Denies Abnormal speech present, Denies abnormal gait, Denies headache(s) and Denies Sensory deficit (Neuro) Psych Denies mood swings and Denies paranoia Endo Reports as per HPI Sid/Lymph Reports as per HPI Aller/Immun Reports as per HPI Physical exam (Primary Care) Vital Signs: Last Vital Signs Pulse 99 07/19/23 08:28 BP 148/90 H 07/19/23 08:28 Pulse Ox 98 07/19/23 08:28 Oxygen Delivery Method Room Air 07/19/23 08:28 BMI result Body Mass Index 32.8 Tobacco/Smoking Status: Tobacco use Status Tobacco use date assessed 07/19/23 07/19/23 08:29 Patient Tobacco Use Status Never used Tobacco 07/19/23 08:29 e-Cigarette/Vaping Use Never Used 07/19/23 08:29 PHQ-9: PHQ-9 Score PHQ-9: Total score 0 07/19/23 08:50 Depression Screening Interpretation: Negative Thrive Assessment: Date of Thrive Assessment Date Thrive assessed 07/19/23 07/19/23 08:31 Currently or been in a relationship where the following occur: no concerns reported Const General: cooperative, comfortable and no acute distress Orientation/consciousness: patient oriented x3 HENMT Head: Yes normocephalic and Yes atraumatic Eyes General: appearance normal, both eyes and all related structures Pupils: Equal, round and reactive pupils present EOM: EOMs intact bilaterally Neck Neck: Yes supple and No lymphadenopathy Thyroid: Thyroid normal Lymphatic: no lymphadenopathy noted Resp Effort & Inspection: normal respiratory effort and able to speak in complete sentences Auscultation: clear to auscultation bilaterally Cardio Heart sounds: S1 normal heart sound present and S2 normal heart sound present GI Palpation (GI): Soft to palpation and nontender Auscultation: normal bowel sounds General: Yes no CVA tenderness Back/Spine/Pelvis Back: no CVA tenderness Skin General skin exam: elasticity normal and turgor normal Neuro General: patient oriented x3 and gait normal Cranial nerves: Yes Equal, round and reactive pupils present Speech: No Abnormal speech present Sensory Exam: No Sensory deficit (Neuro) Coordination: tandem gait normal and Romberg test negative Extrem General: Yes normal exam except as noted and No edema Office Procedures EKG 55900-[id number], Complete Assessment and Plan Assessment & Plan (1) Encounter for general adult medical examination with abnormal findings: Code(s): Z00.01 - Encounter for general adult medical examination with abnormal findings (2) Periodic heart flutter: Code(s): I49.8 - Other specified cardiac arrhythmias (3) Diabetes type 2, controlled: Code(s): E11.9 - Type 2 diabetes mellitus without complications Qualifiers: Diabetes mellitus fdc insulin use: with regional intermodal truck driver use Diabetes mellitus complication detail: with unspecified neuropathy Diabetes mellitus complication status: with neurologic complications Qualified Code(s): E11.40 - Type 2 diabetes mellitus with diabetic neuropathy, unspecified; Z79.4 - regional intermodal truck driver (current) use of insulin (4) Primary thyroid cancer: Code(s): C73 - Malignant neoplasm of thyroid gland (5) History of primary hyperparathyroidism: Code(s): Z86.39 - Personal history of other endocrine, nutritional and metabolic disease (6) Lipid disorder: Code(s): E78.9 - Disorder of lipoprotein metabolism, unspecified (7) regional intermodal truck driver (current) use of insulin: Code(s): Z79.4 - MCFP (current) use of insulin (8) Uncontrolled hypertension: Code(s): I10 - Essential (primary) hypertension (9) Atrial arrhythmia: Code(s): I49.8 - Other specified cardiac arrhythmias Plan Patient is 52-year-old female came in today for physical examination Mammogram is up-to-date Colonoscopy was January of this year next colonoscopy will be in 3 years Pap smear is through Dr. Strong at [facility] Patient has been complaining of palpitations within the EKG today which shows normal sinus rhythm with sinus arrhythmia I have placed a referral for her to be evaluated by vegetable i farmworker, I have also ordered echocardiogram meanwhile There is no associated lightheadedness or dizziness Patient does drink a lot of diet Coke which has caffeine in it. I would recommend to cut down further. History of thyroid cancer, patient is seeing an oncologist at [facility] every [address] Alejandra Blood pressure continued to be elevated patient is on lisinopril 40 mg, IM adding hydrochlorothiazide 25 mg She is also due for labs Patient is diabetic and is taking long-acting insulin 28 units and glipizide metformin 5-500 b.i.d. Patient says that when she goes out to eat her morning sugars are high. We talked about the management, patient says that it goes as high as 145. We will wait for hemoglobin A1c before we do any other changes. BMI is elevated at 32.8 patient is trying to lose weight. Follow-up 3 months Orders: Orders Comprehensive Met. Panel Today C73 - Malignant neoplasm of thyroid gland, E11.9 - Type 2 diabetes mellitus without complications, E78.9 - Disorder of lipoprotein metabolism, unspecified, I10 - Essential (primary) hypertension, Z00.01 - Encounter for general adult medical examination with abnormal findings, Z79.4 - regional intermodal truck driver (current) use of insulin, Z86.39 - Personal history of other endocrine, nutritional and metabolic disease TSH reflex Free T4 Today C73 - Malignant neoplasm of thyroid gland, E11.9 - Type 2 diabetes mellitus without complications, E78.9 - Disorder of lipoprotein metabolism, unspecified, I10 - Essential (primary) hypertension, Z00.01 - Encounter for general adult medical examination with abnormal findings, Z79.4 - regional intermodal truck driver (current) use of insulin, Z86.39 - Personal history of other endocrine, nutritional and metabolic disease Microalbumin, Random (w Creat) Today C73 - Malignant neoplasm of thyroid gland, E11.9 - Type 2 diabetes mellitus without complications, E78.9 - Disorder of lipoprotein metabolism, unspecified, I10 - Essential (primary) hypertension, Z00.01 - Encounter for general adult medical examination with abnormal findings, Z79.4 - MCFP (current) use of insulin, Z86.39 - Personal history of other endocrine, nutritional and metabolic disease CA echo transthoracic complete Today I10 - Essential (primary) hypertension, I49.8 - Other specified cardiac arrhythmias, Z79.4 - MCFP (current) use of insulin Hemoglobin A1c Today C73 - Malignant neoplasm of thyroid gland, E11.9 - Type 2 diabetes mellitus without complications, E78.9 - Disorder of lipoprotein metabolism, unspecified, I10 - Essential (primary) hypertension, Z00.01 - Encounter for general adult medical examination with abnormal findings, Z79.4 - MCFP (current) use of insulin, Z86.39 - Personal history of other endocrine, nutritional and metabolic disease Complete Blood Count Auto Diff Today C73 - Malignant neoplasm of thyroid gland, E11.9 - Type 2 diabetes mellitus without complications, E78.9 - Disorder of lipoprotein metabolism, unspecified, I10 - Essential (primary) hypertension, Z00.01 - Encounter for general adult medical examination with abnormal findings, Z79.4 - regional intermodal truck driver (current) use of insulin, Z86.39 - Personal history of other endocrine, nutritional and metabolic disease LDL Cholesterol Direct Today C73 - Malignant neoplasm of thyroid gland, E11.9 - Type 2 diabetes mellitus without complications, E78.9 - Disorder of lipoprotein metabolism, unspecified, I10 - Essential (primary) hypertension, Z00.01 - Encounter for general adult medical examination with abnormal findings, Z79.4 - regional intermodal truck driver (current) use of insulin, Z86.39 - Personal history of other endocrine, nutritional and metabolic disease AMB EKG-In Office Today I49.8 - Other specified cardiac arrhythmias Referrals Cardiology Referral I49.8 - Other specified cardiac arrhythmias Medications: New hydrochlorothiazide 25 mg PO QAM 90 tabs 0RF Changed From lisinopril 40 mg PO DAILY To lisinopril 40 mg PO DAILY 90 tabs 1RF Refilled valacyclovir take 4 tablets 12 hours apart for 1 day for acute flare up 500 mg PO ONCE PRN 90 tabs 0RF herpes labialis 90 days Coding Level of Care Code Est Pt Prev Care 40-64y(77088) Diagnoses Encounter for general adult medical examination with abnormal findings Z00.01 Periodic heart flutter I49.8 Controlled type 2 diabetes mellitus with diabetic neuropathy, with long-term current use of insulin E11.40; Z79.4 Diabetes mellitus regional intermodal truck driver insulin use: with regional intermodal truck driver use Diabetes mellitus complication detail: with unspecified neuropathy Diabetes mellitus complication status: with neurologic complications Primary thyroid cancer C73 History of primary hyperparathyroidism Z86.39 Lipid disorder E78.9 regional intermodal truck driver (current) use of insulin Z79.4 Uncontrolled hypertension I10 Atrial arrhythmia I49.8 CPT Codes EKG - CPT: 05146-[id number], Complete ([id number]) Additional Codes GEE-7 Assessment Billing - GEE-7 Assessment Tool: GEE-7 Assessment 54150 ([id number])
[2023-07-19 08:28] VITALS: BP 148/90; PULSE 99; O2SAT 98; BMI 32.8
== END 2023-07-19 09:01 | disposition home or self-care (01) ==
PROVIDERS: Visit Provider Internal Medicine
DX: Z00.01 Encounter for general adult medical examination with abnormal findings (principal); E11.40 Type 2 diabetes mellitus with diabetic neuropathy, unspecified; Z79.4 Long term (current) use of insulin; C73 Malignant neoplasm of thyroid gland; I49.8 Other specified cardiac arrhythmias; Z86.39 Personal history of other endocrine, nutritional and metabolic disease; E78.9 Disorder of lipoprotein metabolism, unspecified; I10 Essential (primary) hypertension
CPT/HCPCS: 93000; 99213; 99396

== ENCOUNTER 2023-07-19 09:02 | Outpatient (REF) | payer OTHER, SELFPAY ==
[2023-07-19 11:23] LABS: MANUAL DIFF FLAG NO
[2023-07-19 11:30] LABS: Basophils Absolute Auto 0.1 X10*3/uL (0.0-0.2); Basophils Percent Auto 0.6 % (0-2); Eosinophils Absolute Auto 0.1 X10*3/uL (0.0-0.4); Eosinophils Percent Auto 0.8 % (0-4); Hematocrit 42.7 % (37.0-47.0); Hemoglobin 14.1 g/dl (12.0-16.0); Imm Gran Abs Auto 0.03 X10*3/uL (0.00-0.03); Imm Gran Pct Auto 0.3 % (0.0-0.4); Lymphocytes Absolute Auto 1.8 X10*3/uL (1.2-4.9); Lymphocytes Percent Auto 20.3 % (20-40); Mean Corpuscular Hemoglobin 29.2 pg (27.0-33.0); Mean Corpuscular Volume 88.4 fL (80.0-98.0); Mean Platelet Volume 10.2 fL (9.4-12.3); Monocytes Absolute Auto 0.5 X10*3/uL (0.1-1.2); Monocytes Percent Auto 5.3 % (2-11); Neutrophils Absolute Auto 6.3 x10*3/uL (2.0-8.3); Neutrophils Percent Auto 72.7 % (45-73); Platelet Count 376 X10*3/uL (160-400); Red Blood Count 4.83 X10*6/uL (4.20-5.50); Red Cell Distribution Width 12.1 % (11.0-16.0); White Blood Count 8.7 X10*3/uL (4.8-10.8)
[2023-07-19 11:36] LABS: Estimated Average Glucose 146 mg/dL; Hemoglobin A1c % 6.7 % (<6.0)
[2023-07-19 12:02] LABS: Alanine Aminotransferase 22 U/L (0-31); Albumin Level 4.4 g/dL (3.5-5.0); Alkaline Phosphatase 59 U/L (39-117); Anion Gap 15 (12-20); Aspartate Amino Transferase 20 U/L (5-31); Bilirubin Total 0.5 mg/dL (0.0-1.0); Blood Urea Nitrogen 12 mg/dL (9-16); Calcium 9.7 mg/dL (8.4-10.2); Carbon Dioxide 23 mmol/L (22-29); Chloride 107 mmol/L (96-108); Estimated Glomerular Filt Rate > 60; Glucose Random 217 mg/dL (60-115); Potassium 4.3 mmol/L (3.3-5.1); Sodium 141 mmol/L (135-145); TSH reflex Free T4 0.48 uIU/mL (0.32-4.0); Total Protein 7.8 g/dL (6.5-8.0)
[2023-07-19 12:18] LABS: Creatinine Urine 141.27 mg/dL; Microalbum/Creatinine Ratio Ur 12.7 ug/mg cr (<30)
[2023-07-21 00:49] LABS: LDL Cholesterol Direct 114 mg/dL (<100)
== END 2023-07-19 09:03 | disposition home or self-care (01) ==
LOC: HO.HMGCLDS 09:02
PROVIDERS: PCP Internal Medicine; Visit Provider Internal Medicine
DX: Z00.01 Encounter for general adult medical examination with abnormal findings (principal); C73 Malignant neoplasm of thyroid gland; E11.9 Type 2 diabetes mellitus without complications; E78.9 Disorder of lipoprotein metabolism, unspecified; I10 Essential (primary) hypertension; Z79.4 Long term (current) use of insulin; Z86.39 Personal history of other endocrine, nutritional and metabolic disease
CPT/HCPCS: 36415; 80053; 82043; 82570; 83036; 83721; 84443; 85025

== ENCOUNTER → 2023-08-15 14:53 | Outpatient (REF) | payer OTHER, SELFPAY ==
--- NOTE | 2023-08-15 14:57 | CA_ITS ---
Transthoracic Echocardiogram Patient (Last, First, Middle): Angelina Umana, Gender: Female Date of : 1970 Age: 53 Procedure Date: 08/15/2023 Procedure Type: Transthoracic Echocardiogram Location: OP Height: 172.72 cm Weight: 95.26 kg BSA: 2.09 m2 Heart Rate: 73 bpm BP: 132 / 80 [address] Sub[address]: [place]O Referring MD: Yvette Chopra MD Symptoms: I49.8 - Other specified cardiac arrhythmias Study Quality: Fair ECG Rhythm: Sinus Conclusions: - The left ventricular systolic function is normal. The calculated ejection fraction is 58% by biplane method. - No obvious valvular pathology seen on this study. Findings Left Ventricle Normal left ventricular cavity size. There is normal left ventricular wall thickness. The left ventricular systolic function is normal. The calculated ejection fraction is 58% by biplane method. There is no evidence of regional wall motion abnormalities. Diastolic function is normal for age. LV peak GLS -17.4%. Right Ventricle Normal right ventricular cavity size. There is low normal right ventricular systolic function. Atria Both atria are normal in size. Aortic Valve There is a normal trileaflet aortic valve. There is no aortic valve stenosis. There is no aortic valve regurgitation. Mitral Valve The mitral valve appears normal. There is no mitral valve regurgitation. There is no mitral valve stenosis. Pulmonic Valve The pulmonic valve is likely normal. Tricuspid Valve There is trace tricuspid valve regurgitation. Tricuspid regurgitation envelope is inadequate for calculation of right ventricular systolic pressure. Great Vessels The asc aorta is normal in size. Venous The inferior vena cava is normal in size and collapses greater than 50% with inspiration. Pericardium/Pleural There is a trivial pericardial effusion. Prior Study Comparison No prior study available for comparison. Recommendations, Care & Conclusions No obvious valvular pathology seen on this study. Measurements 2D Linear Measurements IVSd: 0.92 0.6-0.9/0.6-1.0 cm LVIDd: 4.40 3.9-5.3/4.2-5.9 cm LVIDd Index: 2.11 2.4-3.2/2.2-3.1 cm/m2 LVIDs: 2.36 2.0-3.6 cm LVPWd: 1.10 0.7-1.1 cm LA Diam: 3.90 2.7-3.8/3.0-4.0 cm LAIDs Index: 1.87 1.5-2.3 cm/m2 LV Mass: 186.60 67-162/88-224 g LV Mass Index: 89.28 43-95/49-115 g/m2 LVOT Diam: 1.90 3.0+(-)1.3 cm 2D Systolic Function EF 4C: 50.70 >55% EF 2C: 65.80 >55% EF BiP: 58.30 >55% Mitral Valve MV Pk E: 0.89 MV PK A: 0.72 MV Decel Time: 227.00 E/A: 1.20 E'Lateral: 10.90 E'Medial: 8.38 E/E' Med: 10.60 E/E' Lat: 8.20 PHT: 66.00 MVA PHT: 3.33 Decel [place]: 3.93 Aortic Valve AoV Pk Jj: 1.23 AoV Mn Jj: 0.86 AoV VTI: 0.26 AoV Pk Grad: 6.00 Aov Mn Grad: 3.00 TRIPP Cont.VTI: 2.44 LVOT LVOT Pk Jj: 1.09 LVOT Mn Jj: 0.72 LVOT VTI: 0.22 LVOT Pk Grad: 5.00 LVOT Mn Grad: 2.00 LVOT Diam: 1.90 LVOT Area: 2.84 Diastolic Function MV Pk E: 0.89 MV Pk A: 0.72 E/A: 1.20 E'Medial: 8.38 E/E' Med: 10.60 E' Laterial: 10.90 E/E' Lat: 8.20 Right Ventricle TAPSE (mm): 18.50 TVS' Jj: 10.30 Tricuspid Valve TR Pk Jj: 1.18 TR Pk Grad: 6.00 Great Vessels Aorta Sinus of Valsalva: 3.40 2.0-3.5 cm Ao Asc: 3.20 2.1-3.4 cm Pulmonary Valve PV Pk Jj: 0.99 Peak PV Grad: 4.00 Updated in Other Vendor System with Status of Final Jose Kwon MD electronically signed on 08/16/2023 11:24:06 AM with status of Final
== END ==
LOC: HO.CARD 14:53
PROVIDERS: PCP Internal Medicine; Visit Provider Internal Medicine
DX: I49.8 Other specified cardiac arrhythmias (principal); I10 Essential (primary) hypertension; Z79.4 Long term (current) use of insulin
CPT/HCPCS: 93306; 93356

== ENCOUNTER → 2023-08-15 14:57 | Outpatient (BNV) | payer OTHER, SELFPAY | PROVIDERS: PCP Internal Medicine; Visit Provider Internal Medicine | DX: I49.3 Ventricular premature depolarization (principal) | CPT/HCPCS: 93306 ==

== ENCOUNTER 2023-09-14 10:41 | Outpatient (AMB) | payer OTHER, SELFPAY ==
[2023-09-14 10:44] VITALS: BP 124/82; PULSE 88; BMI 32.8
--- NOTE | 2023-09-14 10:44 | MHC.OFFVIS ---
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/Cardiac arrhythmia Intake Note: New patient Dr Chopra cardiac arrhythmia c/o flutter at times Jacquard Fixer Required: No Allergies hydromorphone [From DILAUDID] Adverse Reaction (Severe, Verified 07/19/23 08:28) PROJECTILE VOMITING Medication List - Last Reconciled 09/14/23 by Francisco Hairston MD atorvastatin 40 mg PO BEDTIME 90 days blood sugar diagnostic (FreeStyle Precision Papa Strips) once a day for calibration blood sugar diagnostic (OneTouch Verio test strips) 4x daily clobetasol 0.05% 1 appl topical BID PRN 30 days clotrimazole-betamethasone 1-0.05 % 1 appl topical ONCE 30 days docusate sodium (Colace) 200 mg (2 x 100 mg) PO BEDTIME flash glucose scanning reader (H2i TechnologiesStyle Jane 2 [place]) As directed flash glucose sensor (FreeStyle Jane 2 Sensor kit) Once every 14 days glipizide-metformin 5-500 mg 1 tab PO BID 90 days hydrochlorothiazide 25 mg PO QAM hydrocortisone 2.5% (Proctosol HC) 1 appl [place] BEDTIME PRN insulin glargine U-300 conc 28 units (0.0933 mL) subcut BEDTIME 90 days lancets As directed lancets (DiObexTouch Delica Plus Lancet) 4x daily levothyroxine 125 mcg PO DAILY lisinopril 40 mg PO DAILY omeprazole 40 mg PO DAILY 90 days pen needle, diabetic (BD Gabriela 2nd Gen Pen Needle) daily valacyclovir 500 mg PO ONCE PRN 90 days HPI HPI Comments History of Present Illness Details Thank you for referring Angelina in cardiology consultation today for symptoms of palpitations. 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 She has had in the last 4 years significant stress related to parathyroid tumor as well as thyroid cancer. She said for 4 years she has been having issues with management of her thyroid cancer. Initially she had hemithyroidectomy for thyroid cancer subsequently noted to have recurrent thyroid cancer and she underwent total thyroidectomy. Subsequently she was noted to have possible metastatic thyroid cancer underwent radioactive iodine treatment x2. Subsequently she has been followed now by Oncology endocrinology at [facility] and is currently on therapy for thyroid replacement. Her most recent TSH appears to be normal although prior to that her TSH was markedly elevated the 67 range. With the last few months she has been noticing palpitations mostly at rest when she is relaxed she feels like flutter in her chest. This happens infrequently but happen about 3 times a week and can wake her up from sleep. This bothers her. She exercises regularly but denies any exertional chest pain or shortness of breath. She had EKG recently which shows sinus rhythm with sinus arrhythmia. She is referred here for further evaluation of these palpitations. She says due to her thyroid illness she has been overall more anxious. [facility] Medical History Recurrent thyroid cancer Incurved toenail Cervical lymphadenopathy Vitamin D deficiency History of thyroid cancer Diabetes type 2, uncontrolled Herpes labialis Lipid disorder Seborrheic dermatitis of scalp Psoriasis Hypertension, essential Headache syndrome Obesity (BMI 30-39.9) History of primary hyperparathyroidism Dyslipidemia Diabetes type 2, controlled Post-surgical hypothyroidism Primary thyroid cancer Surgical History History of esophagogastroduodenoscopy (EGD) Hx of colonoscopy History of back surgery History of partial hysterectomy Hx of thyroidectomy History of partial thyroidectomy Family History Father Diabetes Hypertension Mother Degenerative arthritis Hypertension Maternal Grandmother Colon cancer Other Substance use disorder Social History Household Members: Children Household Members Other:: single- Housing: House Are you a primary manager career to a significant other at home: No Do you presently have visiting nurse or other home services: No Alcohol intake: never Patient Tobacco Use Status: Never used Tobacco e-Cigarette/Vaping Use: Never Used service: No Current occupational status: employed 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 Hearing needs: No Vision needs: Yes (contacts) Review of Systems Const Denies chills, Denies daytime sleepiness, Denies fatigue, Denies fever(s), Denies frequent falls, Denies poor appetite, Denies snoring, Denies stops breathing during sleep, Denies weakness, Denies weight gain and Denies weight loss Eyes Denies loss of vision ENT Denies dizziness and Denies hearing loss Card Denies chest pain, Denies claudication, Denies leg edema, Denies lightheadedness, Denies palpitations, Denies dyspnea, Denies dyspnea on exertion and Denies orthopnea Resp Denies cough, Denies excessive phlegm production, Denies dyspnea, Denies dyspnea on exertion, Denies snoring and Denies wheezing GI Denies abdominal pain, Denies hematochezia, Denies change in bowel habits, Denies nausea and Denies vomiting Denies urinary frequency and Denies dysuria Musc Denies arthralgias, Denies muscle weakness, Denies numbness and Denies other (frequent falls) Skin/Breast Denies nail changes and Denies rash Neuro Denies Abnormal speech present, Denies dizziness, Denies frequent falls, Denies loss of vision, Denies memory loss, Denies numbness and Denies weakness Psych Denies depression and Denies memory loss Endo Denies fatigue and Denies palpitations Sid/Lymph Reports easy bruising and Reports other (anemia) Aller/Immun Denies wheezing Physical Exam Vital Signs: Last Vital Signs Pulse 88 09/14/23 10:44 BP 124/82 09/14/23 10:44 BMI result Body Mass Index 32.8 Const General: cooperative, comfortable, no acute distress, alert, awake and Physically active Nutritional Appearance: overweight Orientation/consciousness: patient oriented x3 Limitations: no limitations HEENT Head: Yes normocephalic and Yes atraumatic Neck Neck: Yes trachea midline, Yes supple and Yes no JVD Resp Effort & Inspection: normal respiratory effort Auscultation: clear to auscultation bilaterally Cardio Jugular venous distension: no JVD Palpation: normal PMI Rate: regular rate Rhythm: regular rhythm Heart sounds: S1 normal heart sound present, S2 normal heart sound present, no click, no gallops, no murmurs and no rubs GI Auscultation: normal bowel sounds Skin General skin exam: no rashes or lesions noted Neuro General: patient oriented x3 and no focal motor deficits Speech: No Abnormal speech present Extrem General: Yes no clubbing, cyanosis or edema Psych Affect: Anxious affect present Office Procedures EKG Details: EKG shows normal sinus rhythm with low-voltage QRS otherwise normal EKG 50578-[id number], Complete Assessment & Plan Assessment & Plan (1) Periodic heart flutter: Code(s): I49.8 - Other specified cardiac arrhythmias Plan: Patient intermittent symptoms of palpitation, recent origin. This are most suggestive extra systoles such as PACs or PVCs. Although there is no obvious clinical diagnosis. Would suggest a 7 day Holter monitor to establish diagnosis and also assess frequency of these arrhythmias. Further treatment based on the findings. Given her normal structure of the heart on the echocardiogram and no other exertional symptoms myocardial ischemia is less likely unless she has frequent PVCs be further evaluate for the same. Benign nature of isolated extra systoles was discussed with her. We discussed about slowly reducing use of caffeine and avoid other stimulant use. Stress mitigation strategies to be followed. If she remains significantly symptomatic we can consider adding beta-blockers to her regimen. Further treatment based on the findings. (2) Dyslipidemia: Code(s): E78.5 - Hyperlipidemia, unspecified Plan: Hyperlipidemia, currently on high-intensity statin therapy with LDL still not well optimized at 114 mg/dL. Significant risk factors including diabetes and hypertension. I would suggest her to undergo coronary calcium score assessment to evaluate for presence of coronary atherosclerosis and that would further risk stratify based on the level of calcium score if she requires further broke it if testing for myocardial ischemia. More intense lipid modification then can be pursued based on the coronary calcium score. This was discussed with her. Her blood pressure is currently well optimized. Continue current regimen. Continue aggressive control of diabetes goal hemoglobin A1c less than 7%. Continue participate in regular physical activity and weight loss program. Will follow up in the office after above test results. Orders: Orders ECG 7 day holter monitor Today I49.8 - Other specified cardiac arrhythmias CT Coronary Calcium Score 1 Week E78.5 - Hyperlipidemia, unspecified Medications: Changed From levothyroxine 137 mcg PO DAILY 90 tabs 0RF To levothyroxine 125 mcg PO DAILY Coding Level of Care Code New Pt Level 4 (41708) Diagnoses Periodic heart flutter I49.8 Dyslipidemia E78.5 CPT Codes EKG - CPT: 55736-[id number], Complete ([id number])
== END 2023-09-14 11:24 | disposition home or self-care (01) ==
PROVIDERS: PCP Internal Medicine; Visit Provider Internal Medicine Cardiovascular Disease
DX: I49.8 Other specified cardiac arrhythmias (principal); E78.5 Hyperlipidemia, unspecified
CPT/HCPCS: 93010; 99204

== ENCOUNTER → 2023-09-14 10:41 | Outpatient (BNVA) | payer OTHER, SELFPAY | PROVIDERS: PCP Internal Medicine; Visit Provider Internal Medicine Cardiovascular Disease | DX: I49.8 Other specified cardiac arrhythmias (principal); E78.5 Hyperlipidemia, unspecified; Z79.899 Other long term (current) drug therapy | CPT/HCPCS: 93005 ==

== ENCOUNTER → 2023-09-20 14:14 | Outpatient (REF) | payer OTHER, SELFPAY ==
--- NOTE | 2023-09-20 14:16 | HM_ITS ---
Conclusion: 1. Patient was monitored for total period of 6 days and 15 hours 2. Baseline was normal sinus rhythm with average heart of 78 beats per minute 3. No significant pauses noted 4. Very rare ectopy noted 5. Patient reported 1 event of flutter that correlated with sinus rhythm MTDD
== END ==
LOC: HO.CARD 14:14
PROVIDERS: Visit Provider Internal Medicine Cardiovascular Disease
DX: I49.8 Other specified cardiac arrhythmias (principal)
CPT/HCPCS: 93242

== ENCOUNTER → 2023-09-20 14:16 | Outpatient (BNV) | payer OTHER, SELFPAY | PROVIDERS: Visit Provider Internal Medicine Cardiovascular Disease | DX: I49.8 Other specified cardiac arrhythmias (principal) | CPT/HCPCS: 93244 ==

== ENCOUNTER 2023-10-25 15:16 | Outpatient (AMB) | payer OTHER, SELFPAY ==
[2023-10-25 15:17] VITALS: BP 120/80; PULSE 100; BMI 33.2
--- NOTE | 2023-10-25 15:17 | A.OFFVIS_ITS ---
Intake Vital Signs 10/25/23 15:17 Height 5 ft 8 in Weight 218 lb 4.122 oz BMI 33.2 BP 120/80 Blood Pressure Location Lt brachial Position Sitting Pulse 100 Intake Visit Reasons: follow-up testing Intake Note: Follow-up after testing feeling good Bilingual Spanish Inbound Sales Required: No Allergies hydromorphone [From DILAUDID] Adverse Reaction (Severe, Verified 07/19/23 08:28) PROJECTILE VOMITING Medication List - Last Reconciled 10/25/23 by Francisco Hairston MD atorvastatin 40 mg PO BEDTIME 90 days blood sugar diagnostic (FreeStyle Precision Papa Strips) once a day for calibration blood sugar diagnostic ([employer] Unw[employer]Touch Verio test strips) 4x daily clobetasol 0.05% 1 appl topical BID PRN 30 days clotrimazole-betamethasone 1-0.05 % 1 appl topical ONCE 30 days docusate sodium (Colace) 200 mg (2 x 100 mg) PO BEDTIME flash glucose scanning reader ([employer] Jane 2 [place]) As directed flash glucose sensor (AccelaStyle Jane 2 Sensor kit) Once every 14 days glipizide-metformin 5-500 mg 1 tab PO BID 90 days hydrochlorothiazide 25 mg PO QAM hydrocortisone 2.5% (Proctosol HC) 1 appl [place] BEDTIME PRN insulin glargine U-300 conc 28 units (0.0933 mL) subcut BEDTIME 90 days lancets As directed lancets (Epigamiuch Delica Plus Lancet) 4x daily levothyroxine 137 mcg PO DAILY lisinopril 40 mg PO DAILY omeprazole 40 mg PO DAILY 90 days pen needle, diabetic (BD Gabriela 2nd Gen Pen Needle) daily valacyclovir 500 mg PO ONCE PRN 90 days HPI HPI Comments History of Present Illness Details Melissa comes for follow-up after testing. No new symptoms to report. Says as having trouble losing weight due to her thyroid and diabetes issues. No exertional chest pain. Holter monitor was benign with minimal extra systoles. Coronary calcium score is 0 [facility] Medical History Recurrent thyroid cancer Incurved toenail Cervical lymphadenopathy Vitamin D deficiency History of thyroid cancer Diabetes type 2, uncontrolled Herpes labialis Lipid disorder Seborrheic dermatitis of scalp Psoriasis Hypertension, essential Headache syndrome Obesity (BMI 30-39.9) History of primary hyperparathyroidism Dyslipidemia Diabetes type 2, controlled Post-surgical hypothyroidism Primary thyroid cancer Surgical History History of esophagogastroduodenoscopy (EGD) Hx of colonoscopy History of back surgery History of partial hysterectomy Hx of thyroidectomy History of partial thyroidectomy Family History Father Diabetes Hypertension Mother Degenerative arthritis Hypertension Maternal Grandmother Colon cancer Other Substance use disorder Social History Household Members: Children Household Members Other:: single- Housing: House Are you a primary home health care coordinator to a significant other at home: No Do you presently have visiting nurse or other home services: No Alcohol intake: never Patient Tobacco Use Status: Never used Tobacco e-Cigarette/Vaping Use: Never Used service: No Current occupational status: employed 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 Hearing needs: No Vision needs: Yes (contacts) Review of Systems Const Denies chills, Denies fatigue, Denies fever(s), Denies frequent falls, Denies weakness, Denies weight gain and Denies weight loss ENT Denies dizziness Card Denies chest pain, Denies leg edema, Denies lightheadedness, Denies palp itations, Denies dyspnea, Denies dyspnea on exertion, Denies orthopnea and Denies other (loss of consciousness) Resp Denies cough, Denies dyspnea and Denies dyspnea on exertion GI Denies hematochezia and Denies change in stool character Musc Denies abnormal gait, Denies muscle weakness, Denies numbness, Denies radiating pain into limb and Denies tingling Neuro Denies Abnormal speech present, Denies abnormal gait, Denies dizziness, Denies frequent falls, Denies numbness, Denies tingling and Denies weakness Endo Denies fatigue and Denies palpitations Physical Exam Vital Signs: Last Vital Signs Pulse 100 10/25/23 15:17 BP 120/80 10/25/23 15:17 BMI result Body Mass Index 33.2 Const General: cooperative, comfortable, no acute distress, alert, awake and Ph ysically active Nutritional Appearance: overweight Orientation/consciousness: patient oriented x3 Limitations: no limitations HEENT Head: Yes normocephalic and Yes atraumatic Neck Neck: Yes trachea midline, Yes supple and Yes no JVD Resp Effort & Inspection: normal respiratory effort Auscultation: clear to auscultation bilaterally Cardio Jugular venous distension: no JVD Palpation: normal PMI Rate: regular rate Rhythm: regular rhythm Heart sounds: S1 normal heart sound present, S2 normal heart sound present, no click, no gallops, no murmurs and no rubs GI Auscultation: normal bowel sounds Skin General skin exam: no rashes or lesions noted Neuro General: patient oriented x3 and no focal motor deficits Speech: No Abnormal speech present Extrem General: Yes no clubbing, cyanosis or edema Psych Affect: Anxious affect present Assessment & Plan Assessment & Plan (1) Periodic heart flutter: Code(s): I49.8 - Other specified cardiac arrhythmias Plan: Periodic palpitations with rare ectopy with normal structure of the heart. Benign nature of this arrhythmias was discussed. I would suggest no further pharmacotherapy. Avoidance of stimulants and stress mitigation strategies to be pursued. Continue aggressive lifestyle modification. A coronary calcium score is 0 and therefore would not change her statin therapy at this point time. Continue to participate in regular physical activity as well as aggressive diabetes management. Will follow up in the clinic if need be. Thank you for allowing me to partake in her care Coding Level of Care Code Est Pt Level 3 (88959) Diagnoses Periodic heart flutter I49.8
== END 2023-10-25 15:46 | disposition home or self-care (01) ==
PROVIDERS: PCP Internal Medicine; Visit Provider Internal Medicine Cardiovascular Disease
DX: I49.8 Other specified cardiac arrhythmias (principal)
CPT/HCPCS: 99213

== ENCOUNTER → 2023-10-25 15:16 | Outpatient (BNVA) | payer OTHER, SELFPAY | PROVIDERS: PCP Internal Medicine; Visit Provider Internal Medicine Cardiovascular Disease ==

== ENCOUNTER 2023-12-06 09:15 | Outpatient (REF) | payer OTHER, SELFPAY | END 2023-12-06 09:16 | disposition home or self-care (01) | LOC: HO.MAMMO 09:15 | PROVIDERS: PCP Internal Medicine; Visit Provider Internal Medicine | DX: Z12.31 Encounter for screening mammogram for malignant neoplasm of breast (principal) | CPT/HCPCS: 77063; 77067 ==

== ENCOUNTER → 2023-12-06 09:30 | Outpatient (BNV) | payer OTHER, SELFPAY | PROVIDERS: PCP Internal Medicine; Visit Provider Radiology Diagnostic Radiology | DX: Z12.31 Encounter for screening mammogram for malignant neoplasm of breast (principal) | CPT/HCPCS: 77063; 77067 ==

== ENCOUNTER 2024-01-20 07:48 | Outpatient (AMB) | payer OTHER, SELFPAY ==
[2024-01-20 07:54] VITALS: BP 110/78; PULSE 95; O2SAT 98; BMI 31.8
--- NOTE | 2024-01-20 07:54 | A.OFFPC_ITS ---
Vital Signs 01/20/24 07:54 Height 5 ft 8 in Weight 209 lb BMI 31.8 BP 110/78 Blood Pressure Location Lt brachial Position Sitting Pulse 95 Pulse Source Pulse Oximeter Pulse Oximetry (%) 98 Oxygen Delivery Method Room Air Intake Visit Reasons: 6 Month follow up Allergies hydromorphone [From DILAUDID] Adverse Reaction (Severe, Verified 01/20/24 07:56) PROJECTILE VOMITING Medication List - Last Reconciled 01/20/24 by Yvette Chopra MD atorvastatin 40 mg PO BEDTIME 90 days blood sugar diagnostic (FreeStyle Precision Papa Strips) once a day for calibration blood sugar diagnostic (OneTouch Verio test strips) 4x daily clobetasol 0.05% 1 appl topical BID PRN 30 days clotrimazole-betamethasone 1-0.05 % 1 appl topical ONCE 30 days Dexcom G7 Sensor (blood-glucose sensor) As directed, change every 10 days NS docusate sodium (Colace) 200 mg (2 x 100 mg) PO BEDTIME glipizide-metformin 5-500 mg 1 tab PO BID 30 days hydrochlorothiazide 25 mg PO QAM hydrocortisone 2.5% (Proctosol HC) 1 appl MT BEDTIME PRN insulin glargine U-300 conc 28 units (0.0933 mL) subcut BEDTIME 90 days lancets As directed lancets (AdallomTouch Delica Plus Lancet) 4x daily levothyroxine 137 mcg PO DAILY lisinopril 40 mg PO DAILY omeprazole 40 mg PO DAILY 90 days omeprazole 40 mg PO DAILY 90 days Ozempic (semaglutide) 0.25 mg (0.368 mL) subcut QWEEK NS pen needle, diabetic (BD Gabriela 2nd Gen Pen Needle) daily valacyclovir 500 mg PO ONCE PRN 90 days Tobacco use date assessed: 01/20/24 Dental Screening Dental Screen Date: 01/20/24 Did you have a dental visit in the last 12 months?: Yes Did you have a dental problem in the last 6 months where you did not have access to dental care?: No Was dental information given to patient?: Patient has dentist HPI 6 Month follow up HPI Details Patient is 53-year-old female came in for her regular six-month follow- up appointment Patient is doing well Blood pressure is well-controlled patient is on lisinopril 40 mg and hydrochlorothiazide 25 mg Patient is diabetic and is taking long-acting insulin 28 units and glipizide metformin 5-500 b.i.d. along with Ozempic She was able to lose some weight since seen last BMI has improved to 31.8, it was 32.8 before Lipid disorder: Continue atorvastatin 40 mg Patient have a history of thyroid cancer, patient is seeing an oncologist at [facility] every [address] Ny Walden for labs Patient was notified to do labs before every visit As she is coming in only twice a year for follow-up Follow-up 3 months [facility] Medical History Recurrent thyroid cancer Incurved toenail Cervical lymphadenopathy Vitamin D deficiency History of thyroid cancer Diabetes type 2, uncontrolled Herpes labialis Lipid disorder Seborrheic dermatitis of scalp Psoriasis Hypertension, essential Headache syndrome Obesity (BMI 30-39.9) History of primary hyperparathyroidism Dyslipidemia Diabetes type 2, controlled Post-surgical hypothyroidism Primary thyroid cancer Surgical History History of esophagogastroduodenoscopy (EGD) Hx of colonoscopy History of back surgery History of partial hysterectomy Hx of thyroidectomy History of partial thyroidectomy Family History Father Diabetes Hypertension Mother Degenerative arthritis Hypertension Maternal Grandmother Colon cancer Other Substance use disorder Social History Household Members: Children Household Members Other:: single- Housing: House Are you a primary care specialist to a significant other at home: No Do you presently have visiting nurse or other home services: No Alcohol intake: never Patient Tobacco Use Status: Never used Tobacco e-Cigarette/Vaping Use: Never Used service: No Current occupational status: employed 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- Cognitive needs: No Hearing needs: No Vision needs: Yes (contacts) Questionnaire PHQ-9 Over the last 2 weeks, how often have you been bothered by any of the following problems? 1. Little interest or pleasure in doing things: not at all 2. Feeling down, depressed, or hopeless: not at all 3. Trouble falling or staying asleep, or sleeping too much: not at all 4. Feeling tired or having little energy: not at all 5. Poor appetite or overeating: not at all 6. Feeling bad about yourself - or that you are a failure or have let yourself or your family down: not at all 7. Trouble concentrating on things, such as reading the newspaper or watching television: not at all 8. Moving or speaking so slowly that other people could have noticed. Or the opposite - being so fidgety or restless that you have been moving around a lot more than usual: not at all 9. Thoughts that you would be better off or of hurting yourself in some way: not at all Total score: 0 Depression Screening Interpretation: Negative Depression Screening Done: Yes 60792 - PHQ-9 Billing: Yes Source: Developed by Drs. Leonidas No, Akanksha Robin, Ej Hamilton and colleagues, with an educational everett from [employer]. Thrive Questionnaire Date Thrive assessed: 01/20/24 I am a: Patient What is your living situation today?: I have a steady place to live Within the past 12 months, did the food you bought not last and you didn't have the money to get more?: Never true Within the past 12 months, did you worry whether your food would run out before you got money to buy more?: Never true Do you have trouble paying for medicines?: No Do you have trouble getting transportation to medical appointments?: No Do you have trouble paying your heating and electricity bill?: No Do you have trouble taking care of your child, family member or friend?: No Do you have trouble with day-to-day activities such as bathing, preparing meals, shopping, managing finances, etc.?: No Are you currently unemployed and looking for a job?: No Are you interested in more education?: No Please select the resources that you would like help with: None THRIVE Score: 0 AUDIT C Alcohol Use Questionnaire (AUDIT-C) 1. How often do you have a drink containing alcohol?: Monthly or less 2. How many drinks containing alcohol do you have on a typical day when you are drinking?: 1 or 2 3. How often do you have six or more drinks on one occasion?: Never Total Score: 1 GEE-7 AMB Questionnaire GEE-7 Date GEE - 7 assessed: 01/20/24 Feeling nervous, anxious, or on edge: 0 = Not at all Not being able to stop or control worryin = Not at all Worrying too much about different things: 0 = Not at all Trouble relaxin = Not at all Being so restless that it is hard to sit still: 0 = Not at all Becoming easily annoyed or irritable: 0 = Not at all Feeling afraid as if something awful might happen: 0 = Not at all Total GEE-7 score (0-4 normal; 5-9 mild; 10-14 moderate; 15-21 severe): 0 Source: Developed by Drs. Leonidas No, Akanksha Robin, Ej Hamilton and colleagues, with an educational everett from [employer]. Review of Systems Const Denies chills and Denies fever(s) ENT Denies epistaxis and Denies nasal discharge Card Denies chest pain Resp Denies chest congestion, Denies cough and Denies hemoptysis GI Denies diarrhea and Denies nausea Skin/Breast Denies rash Neuro Reports no additional complaints Psych Reports no additional complaints Endo Reports no additional complaints Physical exam (Primary Care) Vital Signs: Last Vital Signs Pulse 95 01/20/24 07:54 BP 110/78 01/20/24 07:54 Pulse Ox 98 01/20/24 07:54 Oxygen Delivery Method Room Air 01/20/24 07:54 BMI result Body Mass Index 31.8 Tobacco/Smoking Status: Tobacco use Status Tobacco use date assessed 01/20/24 01/20/24 08:00 Patient Tobacco Use Status Never used Tobacco 01/20/24 08:00 e-Cigarette/Vaping Use Never Used 01/20/24 07:54 PHQ-9: PHQ-9 Score PHQ-9: Total score 0 01/20/24 08:08 Depression Screening Interpretation: Negative Thrive Assessment: Date of Thrive Assessment Date Thrive assessed 01/20/24 01/20/24 08:00 Const General: cooperative, comfortable and no acute distress Orientation/consciousness: patient oriented x3 HENMT Head: Yes normocephalic Eyes General: appearance normal, both eyes and all related structures Neck Neck: Yes supple Resp Effort & Inspection: normal respiratory effort, no cough and no stridor Cardio Rhythm: regular rhythm Heart sounds: S1 normal heart sound present and S2 normal heart sound present Skin General skin exam: turgor normal Neuro General: patient oriented x3, tone normal and moves all extremities Extrem Right lower extremity: no edema Left lower extremity: no edema Assessment and Plan Assessment & Plan (1) Diabetes type 2, controlled: Code(s): E11.9 - Type 2 diabetes mellitus without complications Qualifiers: Diabetes mellitus complication detail: with unspecified neuropathy Diabetes mellitus complication status: with neurologic complications 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 insulin use: with skilled nursing use Qualified Code(s): E11.40 - Type 2 diabetes mellitus with diabetic neuropathy, unspecified; Z79.4 - long-term (current) use of insulin (2) Hypertension, essential: Code(s): I10 - Essential (primary) hypertension (3) Lipid disorder: Code(s): E78.9 - Disorder of lipoprotein metabolism, unspecified (4) Obesity due to excess calories: Code(s): E66.09 - Other obesity due to excess calories Qualifiers: Obesity classification: adult class 1 (BMI 30 - 34.9) Serious obesity comorbidity presence: with serious comorbidity Body mass index: BMI 31.0-31.9 Qualified Code(s): E66.09 - Other obesity due to excess calories; Z68.31 - Body mass index [BMI] 31.0-31.9, adult (5) long-term (current) use of insulin: Code(s): Z79.4 - parts counterman (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 Patient is doing well Blood pressure is well-controlled patient is on lisinopril 40 mg and hydrochlorothiazide 25 mg Patient is diabetic and is taking long-acting insulin 28 units and glipizide metformin 5-500 b.i.d. along with Ozempic She was able to lose some weight since seen last BMI has improved to 31.8, it was 32.8 before Lipid disorder: Continue atorvastatin 40 mg Patient have a history of thyroid cancer, patient is seeing an oncologist at [facility] every [address] Ny Walden for labs Patient was notified to do labs before every visit As she is coming in only twice a year for follow-up Follow-up 3 months Orders: Orders TSH reflex Free T4 Today E11.40 - Type 2 diabetes mellitus with diabetic neuropathy, unspecified, E66.09 - Other obesity due to excess calories, E78.9 - Disorder of lipoprotein metabolism, unspecified, E89.0 - Postprocedural hypothyroidism, I10 - Essential (primary) hypertension, Z79.4 - parts counterman (current) use of insulin Complete Blood Count Auto Diff 6 Months E11.40 - Type 2 diabetes mellitus with diabetic neuropathy, unspecified, E66.09 - Other obesity due to excess calories, E78.9 - Disorder of lipoprotein metabolism, unspecified, I10 - Essential (primary) hypertension, Z68.31 - Body mass index [BMI] 31.0-31.9, adult, Z79.4 - parts counterman (current) use of insulin LDL Cholesterol Direct 6 Months E11.40 - Type 2 diabetes mellitus with diabetic neuropathy, unspecified, E66.09 - Other obesity due to excess calories, E78.9 - Disorder of lipoprotein metabolism, unspecified, I10 - Essential (primary) hypertension, Z68.31 - Body mass index [BMI] 31.0-31.9, adult, Z79.4 - long-term (current) use of insulin Hemoglobin A1c Today E11.40 - Type 2 diabetes mellitus with diabetic neuropathy, unspecified, E66.09 - Other obesity due to excess calories, E78.9 - Disorder of lipoprotein metabolism, unspecified, E89.0 - Postprocedural hypothyroidism, I10 - Essential (primary) hypertension, Z79.4 - long-term (current) use of insulin Complete Blood Count Auto Diff Today E11.40 - Type 2 diabetes mellitus with diabetic neuropathy, unspecified, E66.09 - Other obesity due to excess calories, E78.9 - Disorder of lipoprotein metabolism, unspecified, E89.0 - Postprocedural hypothyroidism, I10 - Essential (primary) hypertension, Z79.4 - parts counterman (current) use of insulin Microalbumin, Random (w Creat) Today E11.40 - Type 2 diabetes mellitus with diabetic neuropathy, unspecified, E66.09 - Other obesity due to excess calories, E78.9 - Disorder of lipoprotein metabolism, unspecified, E89.0 - Postprocedural hypothyroidism, I10 - Essential (primary) hypertension, Z79.4 - parts counterman (current) use of insulin Comprehensive [place]. Panel Fast Today E11.40 - Type 2 diabetes mellitus with diabetic neuropathy, unspecified, E66.09 - Other obesity due to excess calories, E78.9 - Disorder of lipoprotein metabolism, unspecified, I10 - Essential (primary) hypertension, Z79.4 - long-term (current) use of insulin Lipid Panel Today E11.40 - Type 2 diabetes mellitus with diabetic neuropathy, unspecified, E66.09 - Other obesity due to excess calories, E78.9 - Disorder of lipoprotein metabolism, unspecified, I10 - Essential (primary) hypertension, Z79.4 - long-term (current) use of insulin Hemoglobin A1c 6 Months E11.40 - Type 2 diabetes mellitus with diabetic neuropathy, unspecified, E66.09 - Other obesity due to excess calories, E78.9 - Disorder of lipoprotein metabolism, unspecified, I10 - Essential (primary) h ypertension, Z68.31 - Body mass index [BMI] 31.0-31.9, adult, Z79.4 - parts counterman (current) use of insulin Comprehensive Met. Panel 6 Months E11.40 - Type 2 diabetes mellitus with diabetic neuropathy, unspecified, E66.09 - Other obesity due to excess calories, E78.9 - Disorder of lipoprotein metabolism, unspecified, I10 - Essential (primary) hypertension, Z68.31 - Body mass index [BMI] 31.0-31.9, adult, Z79.4 - parts counterman (current) use of insulin TSH reflex Free T4 6 Months E11.40 - Type 2 diabetes mellitus with diabetic neuropathy, unspecified, E66.09 - Other obesity due to excess calories, E78.9 - Disorder of lipoprotein metabolism, unspecified, I10 - Essential (primary) hypertension, Z68.31 - Body mass index [BMI] 31.0-31.9, adult, Z79.4 - long-term (current) use of insulin Medications: Changed From levothyroxine 137 mcg PO DAILY 90 tabs 1RF To levothyroxine 1/2 tab on Sundays 137 mcg PO DAILY Coding Level of Care Code Est Pt Level 4 (26234) Diagnoses Controlled type 2 diabetes mellitus with diabetic neuropathy, with long-term current use of insulin E11.40; Z79.4 Diabetes mellitus complication detail: with unspecified neuropathy Diabetes mellitus complication status: with neurologic complications 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
== END 2024-01-20 08:10 | disposition home or self-care (01) ==
PROVIDERS: PCP Internal Medicine; Visit Provider Internal Medicine
DX: E11.40 Type 2 diabetes mellitus with diabetic neuropathy, unspecified (principal); Z79.4 Long term (current) use of insulin; I10 Essential (primary) hypertension; E78.9 Disorder of lipoprotein metabolism, unspecified; E66.09 Other obesity due to excess calories; Z68.31 Body mass index [BMI] 31.0-31.9, adult; E89.0 Postprocedural hypothyroidism
CPT/HCPCS: 99214

== ENCOUNTER 2024-01-20 08:12 | Outpatient (REF) | payer OTHER, SELFPAY ==
[2024-01-20 10:39] LABS: MANUAL DIFF FLAG NO
[2024-01-20 10:55] LABS: Basophils Percent Auto 0.4 % (0-2); Eosinophils Absolute Auto 0.1 X10*3/uL (0.0-0.4); Hematocrit 43.2 % (37.0-47.0); Hemoglobin 14.2 g/dl (12.0-16.0); Imm Gran Abs Auto 0.05 X10*3/uL (0.00-0.03); Imm Gran Pct Auto 0.6 % (0.0-0.4); Lymphocytes Absolute Auto 1.7 X10*3/uL (1.2-4.9); Lymphocytes Percent Auto 18.7 % (20-40); Mean Corpuscular HGB Conc 32.9 g/dl (31.0-35.0); Mean Corpuscular Volume 91.3 fL (80.0-98.0); Monocytes Absolute Auto 0.6 X10*3/uL (0.1-1.2); Monocytes Percent Auto 6.2 % (2-11); Neutrophils Absolute Auto 6.5 x10*3/uL (2.0-8.3); Neutrophils Percent Auto 73.1 % (45-73); Platelet Count 375 X10*3/uL (160-400); Red Blood Count 4.73 X10*6/uL (4.20-5.50); Red Cell Distribution Width 12.9 % (11.0-16.0); White Blood Count 8.9 X10*3/uL (4.8-10.8)
[2024-01-20 11:00] LABS: Estimated Average Glucose 137 mg/dL; Hemoglobin A1c % 6.4 % (<6.0)
[2024-01-20 11:21] LABS: Alanine Aminotransferase 35 U/L (0-31); Albumin Level 4.4 g/dL (3.5-5.0); Alkaline Phosphatase 52 U/L (39-117); Anion Gap 15 (12-20); Aspartate Amino Transferase 26 U/L (5-31); Bilirubin Total 0.4 mg/dL (0.0-1.0); Blood Urea Nitrogen 14 mg/dL (9-16); Calcium 10.2 mg/dL (8.4-10.2); Carbon Dioxide 25 mmol/L (22-29); Chloride 103 mmol/L (96-108); Cholesterol 181 mg/dL (<200); Estimated Glomerular Filt Rate > 60; Glucose Fasting 107 mg/dL (60-99); HDL Cholesterol 42 mg/dL (>40); LDL Cholesterol Calculated 111 mg/dL (<100); Potassium 4.3 mmol/L (3.3-5.1); Sodium 139 mmol/L (135-145); TSH reflex Free T4 1.33 uIU/mL (0.32-4.0); Total Protein 7.8 g/dL (6.5-8.0); Triglycerides 143 mg/dL (<150)
[2024-01-20 11:24] LABS: Creatinine Urine 160.96 mg/dL; Microalbum/Creatinine Ratio Ur 3.1 ug/mg cr (<30)
== END 2024-01-20 08:13 | disposition home or self-care (01) ==
LOC: HO.HMGCLDS 08:12
PROVIDERS: PCP Internal Medicine; Visit Provider Internal Medicine
DX: E11.40 Type 2 diabetes mellitus with diabetic neuropathy, unspecified (principal); Z79.4 Long term (current) use of insulin; I10 Essential (primary) hypertension; E78.9 Disorder of lipoprotein metabolism, unspecified; E66.09 Other obesity due to excess calories; E89.0 Postprocedural hypothyroidism
CPT/HCPCS: 36415; 80053; 80061; 82043; 82570; 83036; 84443; 85025

== ENCOUNTER 2024-07-09 12:38 | Outpatient (AMB) | payer OTHER, SELFPAY ==
--- NOTE | 2024-07-09 12:49 | A.OFFVIS_ITS ---
Vital Signs 3 07/09/24 12:50 Height 5 ft 8 in Weight 210 lb 15.718 oz BMI 32.1 BP 126/78 Blood Pressure Location Lt brachial Position Sitting Pulse 100 Pulse Source Pulse Oximeter Intake Visit Reasons: Personal history of malignant neoplasm of thyroid Intake Note: Patient present today for personal history of malignant neoplasm of thyroid. 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 Accompanied by: Self / Same As Patient Allergies hydromorphone [From DILAUDID] Adverse Reaction (Severe, Verified 07/09/24 12:57) PROJECTILE VOMITING Medication List - Last Reconciled 07/09/24 by Ilana Rincon MD atorvastatin 40 mg PO BEDTIME 90 days blood sugar diagnostic (Contour Next Test Strips) Check blood sugar four times a day As directed blood sugar diagnostic (FreeStyle Precision Papa Strips) once a day for calibration blood sugar diagnostic (OneTouch Verio test strips) 4x daily blood-glucose meter (Contour Next EZ Meter kit) As directed clobetasol 0.05% 1 appl topical BID PRN 30 days clotrimazole-betamethasone 1-0.05 % 1 appl topical ONCE 30 days Dexcom G7 Sensor (blood-glucose sensor) As directed, change every 10 days NS docusate sodium (Colace) 200 mg (2 x 100 mg) PO BEDTIME glipizide-metformin 5-500 mg 1 tab PO BID 90 days hydrochlorothiazide 25 mg PO QAM insulin glargine U-300 conc 28 units (0.0933 mL) subcut BEDTIME 90 days lancets As directed lancets (OneTouch Delica Plus Lancet) 4x daily lancets (Microlet Lancet) Check blood sugar four times daily As directed levothyroxine 137 mcg PO DAILY 90 days lisinopril 40 mg PO DAILY omeprazole 40 mg PO DAILY 90 days omeprazole 40 mg PO DAILY 90 days pen needle, diabetic (BD Gabriela 2nd Gen Pen Needle) daily semaglutide 0.5 mg (0.375 mL) subcut QWEEK 90 days semaglutide (Ozempic) mg subcut valacyclovir 500 mg PO ONCE PRN 90 days HPI Comments Details: 53-year-old female coming in today with 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 She also has a history of hyperparathyroidism status post subtotal parathyroidectomy. She was previously seeing Dr. Bashir, last visit December 2022. HPI of thyroid cancer in detail In 2019 patient Was feeling very tired , diagnosed with primary hyperparahtyroidism , thats why was having neck evaluation with imaging. Was found to have thyroid nodules at that time. Underwent FNA biopsies that were positive for malignancy. I do not have these results. 04/24/2019: Underwent right hemithyroidectomy which revealed 0.9 cm focus of Hurthle cell carcinoma minimally invasive, no angioinvasion, no lymphatic invasion, no perineural invasion. Margins were negative. 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 This was classified as AGC 6 stage I (pT1b pNX) 11/13/2019: Underwent completion thyroidectomy: Surgical path was benign Did not initially receive I 131 T1 remnant ablation Non stimulated TG levels have remained less than 1 2019: Ultrasound of the head and neck revealed pathologically enlarged lymph nodes, 07/31/2020: FNA biopsy for right level 2, 1.7 cm cervical lymph node with no evidence of metastatic disease and TG washout was negative 12/17/2021: Ultrasound of the head and neck revealed to have normal-appearing lymph nodes, a right level 3, 2.2 cm and a left level 2, 1.5 cm lymph node. 12/23/2021: Underwent I 131 remnant ablation with 30.9 mCi of I 131, completed via Thyrogen stimulation. 12/23/2021: Labs TSH: 56.14, stimulated TG 3.3, TG antibody negative. 01/01/2022: Post treatment whole-body scan showed avid uptake within the thyroid bed, as well as minimally diffuse uptake within the bilateral lungs. Otherwise uptake was physiologic. 01/21/22:FNA biopsy of the R cervical level 3 2.2 cm lymph node and the L cervical level 2 1.5 cm lymph node both with benign cytology and negative TG washout. 05/31/2022: CT of the chest reveals small classified granulomas in the lung but no evidence of a metastatic process. 02/18/23: WBS showed interval decrease uptake in the lungs. No other iodine avid metastatic disease seen. 02/16/2023: Labs TSH 67.21, stimulated TG 0.2, TG antibody undetectable Interval history She subsequently had a 2nd opinion at [facility] in fall of 2022 where she underwent ultrasound of the neck per patient which showed a lymph node on the right side that appeared suspicious but was not biopsied. She also had a CT chest over there which did not show any suspicious findings. We will obtain these records. Currentnly feeling well Started ozempic 0.5 mg weekly 4 months for DM type 2 No weight changes though No dysphagia , did have some in 2022, underwne tEGD wuth balloon dilation , dysohagia resolved . No voice chngaes, no anterior pressure. Takinf levothyroxine 137 mcg 6.5 pills a week, most recent blood work from January 2024 showed TSH of 1.33. She is on high dose biotin No palpitations , no tremors. having hot flashes . But is postmenopausal. Chronic constipation. Endorses Hair loss. History of hypercalcemia and primary Hyperparathyroidism She initially underwent a single gland parathyroidectomy 04/24/2019. She had resection of her R superior parathyroid gland at that time with intraoperative PTH declining from 122 to 23 indicating cure. She unfortunately had recurrence of her hyperparathyroidism and underwent an additional 2 gland parathyroidectomy 11/13/2019 with resection of her L superior and L inferior parathyroid glands. Unfortunately intraoperative PTH did not meet curative criteria with a decline from 61 to 59. She had a DXA scan most recently in January 2022 which was largely WNL. Physical exam General: sitting comfortably in no acute distress HEENT: normocephalic/atraumatic, moist oral mucosa Neck: supple, symmetrical, no palpable lymph nodes or masses Cardiac: normal heart sounds Pulm: normal breath sounds B/L, no added breath sounds Abd: not distended, no tenderness Extremities: no edema, no signs of myxedema Neuro: AAO x3, Speech: normal, no facial droop, moving all 4 extremities Laboratory Tests 05/15/19 06/18/19 08/14/19 10:25 11:12 10:10 TSH Thyroglobulin 12.9 H 12.9 13.7 H Thyroglobulin Antibody <1 <1 <1 01/22/20 07/10/20 10/10/20 08:30 08:48 08:30 TSH 2.10 1.21 Thyroglobulin 0.9 H 0.6 H 0.5 H Thyroglobulin Antibody <1 <1 <1 01/06/21 11/16/21 11/19/21 09:30 10:32 08:03 TSH 1.43 3.29 5.04 H Thyroglobulin 0.5 H 0.7 L Thyroglobulin Antibody <1 <1 12/23/21 01/18/22 05/20/22 11:58 10:00 09:28 TSH 56.14 H 3.56 0.02 L Thyroglobulin 3.3 3.0 0.1 L Thyroglobulin Antibody <1 1 09/23/22 09/23/22 09/23/22 16:09 16:09 16:09 TSH 1.19 Thyroglobulin 0.1 H 0.1 L Thyroglobulin Antibody <1 <1 02/16/23 07/19/23 01/20/24 09:10 09:06 08:24 TSH 67.21 H 0.48 1.33 Thyroglobulin 0.2 H Thyroglobulin Antibody <1 Laboratory Tests 01/20/24 08:24 Calcium 10.2 Albumin 4.4 Imaging and Pathology US 06/2020 US SOFT TISSUE OF THE NECK CLINICAL INFORMATION: Malignant neoplasm of thyroid gland. COMPARISON: Ultrasound soft tissue head/neck dated 11/21/2018. Thyroid ultrasound 06/19/2019. TECHNIQUE: Linear transducer grayscale and color Doppler examination of the thyroid bed and surrounding soft tissue. FINDINGS: RIGHT NECK: 1.Level 2 lymph node measures 1.0 x 0.5 x 0.8 cm. It has absent hilum with cystic features, abnormal. 2.Level 2 lymph node measures 1.7 x 0.6111 cm. It has slit-like hilum and appears normal. 3.Level 3 lymph node measures 1.7 x 0.6 x 1.1 cm. Absent hilum with cystic features, abnormal. 4.Level 5A lymph node measures 1.0 x 0.7 x 0.7 cm. It has absent hilum and has cystic and round features. LEFT NECK: 1.Level 1B lymph node measures 1.2 x 0.9 x 1.1 cm. It has absent hilum and has dominant cystic features with septation. Abnormal. 2.Level 2 lymph node measures 1.6 x 0.8 x 1.6 cm. Septations, abnormal. 3.Level 3 lymph node measures 1.4 x 0.6 x 0.8 cm. It has normal echogenic medulla and hypoechoic cortex, normal. 4.Level 3 lymph node measures 1.3 x 0.3 x 0.7 cm. There is normal echogenic medulla. Normal. 5.Level 4 lymph node measures 1.5 x 0.6 x 0.9 cm. It is an echogenic medulla and typical lymph node appearance, normal. 6.Level 2 lymph node measures 0.9 x 0.3 x 0.6 cm and has normal lymph node characteristics. US/US soft tiss head and/or neck IMPRESSION: Neck lymph nodes as described above. US SOFT TISSUE NECK 01/01 CLINICAL INFORMATION: Thyroid cancer. COMPARISON: Previous ultrasound June 2020 TECHNIQUE: Ultrasound of the neck soft tissues is performed with high- frequency hunt-scale imaging and color Doppler. FINDINGS: THYROID BED: Prior thyroidectomy. No residual thyroid tissue demonstrated in the thyroid bed. No cystic or solid nodules demonstrated in the thyroid bed. RIGHT NECK SOFT TISSUES: There are 3 right cervical lymph nodes. The largest nodes are as follows: Level 2: 1.6 x 0.5 x 0.6 cm. previous 1.7 x 0.6 x 1.1 cm. Normal elizabeth architecture. Level 3: 2.2 x 0.8 x 1.3 cm. previous 1.7 x 0.6 x 1.1 abnormal elizabeth architecture with slitlike hilum. LEFT NECK SOFT TISSUES: There are 4 left cervical lymph nodes. The largest nodes are as follows: Level 2: 1.4 x 1 x 1.5 cm. previous 1.2 x 0.9 x 1.1 abnormal elizabeth architecture with cortical thickening Level 2: 1.6 x 0.7 x 0.6 cm. Normal leizabeth architecture. There are level 3 and level 4 lymph nodes that appear unchanged in size with normal elizabeth architecture. US/US soft tiss head and/or neck IMPRESSION: Bilateral cervical lymph nodes. Most suspicious lymph node is a right zone 3 lymph node that measures 2.2 x 0.8 x 1.3 cm and has a slitlike hilum. Ct chest 01/2020 CT CHEST WITHOUT CONTRAST CLINICAL INFORMATION: History of thyroid malignancy. COMPARISON: Chest x-ray 12/11/2019 TECHNIQUE: Multidetector volumetric CT imaging of the chest was done. Axial MIP volume rendering provided. Sagittal and coronal reformatted images were obtained. This CT examination was performed using dose optimization techniques as appropriate, variously including the following: *Automated exposure control *Adjustment of mA and/or kV according to patient size (this includes techniques or standardized protocols for targeted exams where dose is matched to indication/reason for exam; i.e. 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 No pulmonary nodule, mass or groundglass density seen. There is a right azygos lobe noted. MEDIASTINUM: The thyroid gland has been surgically removed. Central trachea and the bronchi are widely patent. Heart size and the great vessels are normal caliber. No pericardial effusion seen. There is no abnormal mediastinal adenopathy. PLEURA: There is no pleural effusion. No pleural mass or thickening. AXILLA: Small shotty lymph nodes are seen in bilateral axilla. UPPER ABDOMEN: Visualized liver, spleen, pancreas and bilateral adrenal glands unremarkable. OSSEOUS STRUCTURES: No aggressive lytic or sclerotic process seen. There is mild ventral spondylosis of mid dorsal spine. CT/CT chest wo con IMPRESSION: Unremarkable CT chest exam. Fleischner guidelines were followed. CT CHEST WITHOUT CONTRAST 06/03 CLINICAL INFORMATION: Hurthle cell carcinoma with lung metastases COMPARISON: CT chest 01/18/2022 TECHNIQUE: Multidetector volumetric CT imaging of the chest was done. Axial MIP volume rendering provided. Sagittal and coronal reformatted images were obtained. This CT examination was performed using dose optimization techniques as appropriate, variously including the following: *Automated exposure control *Adjustment of mA and/or kV according to patient size (this includes techniques or standardized protocols for targeted exams where dose is matched to indication/reason for exam; i.e. extremities or head) *Use of iterative reconstruction technique DLP: 188 mGy-cm FINDINGS: LUNGS: No new or suspicious pulmonary nodules. Couple tiny sub-4 mm calcified granulomas noted in the right an left lower lobes, unchanged. Unchanged mild linear subpleural scarring in the posterior right lower lobe. No airspace consolidation. Central through segmental airways are clear. Variant azygous fissure/lobe noted. MEDIASTINUM: No cardiomegaly or pericardial effusion. No mediastinal or hilar lymphadenopathy. Status post thyroidectomy with surgical clips in place. CORONARY ARTERY CALCIFICATION: None visualized on this study. PLEURA: There is no pleural effusion. No pleural mass or thickening. AXILLA: No lymphadenopathy. UPPER ABDOMEN: Mild hepatic hypoattenuation/steatosis. Imaged upper abdominal viscera otherwise unremarkable. OSSEOUS STRUCTURES: No acute fracture or suspicious osseous lesion. Mild multilevel degenerative disc disease. CT/CT chest wo IV con IMPRESSION: 1. No new or suspicious pulmonary nodules to suggest pulmonary metastasis. 2. No acute pulmonary process. 3. Mild hepatic steatosis. Dictated By: Gil Sanabria Signed By: <Electronically signed by Gil Sanabria in OV> [facility] Medical History (Updated 07/09/24 @ 14:28 by Ilana Rincon MD) Hypothyroid Recurrent thyroid cancer Incurved toenail Cervical lymphadenopathy Vitamin D deficiency History of thyroid cancer Diabetes type 2, uncontrolled Herpes labialis Lipid disorder Seborrheic dermatitis of scalp Psoriasis Hypertension, essential Headache syndrome Obesity (BMI 30-39.9) History of primary hyperparathyroidism Dyslipidemia Diabetes type 2, controlled Post-surgical hypothyroidism Primary thyroid cancer Surgical History History of esophagogastroduodenoscopy (EGD) Hx of colonoscopy History of back surgery History of partial hysterectomy Hx of thyroidectomy History of partial thyroidectomy Family History Father Diabetes Hypertension Mother Degenerative arthritis Hypertension Maternal Grandmother Colon cancer Other Substance use disorder Social History Household Members: Children Household Members Other:: single- Housing: House Are you a primary manager wound care to a significant other at home: No Do you presently have visiting nurse or other home services: No Alcohol intake: never Patient Tobacco Use Status: Never used Tobacco e-Cigarette/Vaping Use: Never Used service: No Current occupational status: employed 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 Hearing needs: No Vision needs: Yes (contacts) Physical Exam Vital Signs: Last Vital Signs Pulse 100 07/09/24 12:50 BP 126/78 07/09/24 12:50 BMI result Body Mass Index 32.1 Assessment & Plan Assessment & Plan (1) Hurthle cell carcinoma: Code(s): C73 - Malignant neoplasm of thyroid gland Category: Medical Plan: See below (2) History of thyroid cancer: Code(s): Z85.850 - Personal history of malignant neoplasm of thyroid Category: Medical Plan: 53-year-old female coming in today with past medical history of right 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 She has also had a couple of suspicious lymph nodes on her ultrasound of the neck, and with no malignancy identified on biopsy of suspicious lymph nodes in the neck in July 2020, when she had a right level 2, 1.7 cm lymph node biopsy: And January 2022 when she had a right level 3, 2.2 cm lymph nodes biopsy and a left level 2, 1.5 cm lymph node biopsy., thyroglobulin washout was negative. She had a whole-body scan in February 2023 which showed interval decreased uptake in the lungs and no other iodine avid metastatic disease. She also apparently had a CT chest done at [facility] in fall which did not show any structural disease. currently MARGO indeterminate response to therapy based on suspicious activity on whole-body scan in the lungs. I wonder of the remnant ablation dose targeted possible disease in the lung though at this point we do not have any gross structural evidence of disease. It is however very reassuring to see that her stimulated TG levels has been less than 2 around 0.2 on most recent stimulated labs done in February 2023 and has come down from 3.3 from December 2021.. Unstimulated TG level at 0.1.. I would like to repeat her labs with TG markers. I would also like to get an ultrasound of the neck since her last 1 was about a year ago. We will also try to obtain records of the ultrasound neck from [facility] as well as CT chest. I will also obtain a CT chest Given indeterminate response to therapy her TSH goal is between 0.1-0.5. She is currently on levothyroxine 137 mcg 6.5 pills a week. Plan: -. Ordered TSH, free T4, TG and TG antibody levels -ordered CT chest without contrast -ordered ultrasound of the neck = obtain records from [facility] -follow up in 8 weeks to discuss results (3) History of primary hyperparathyroidism: Code(s): Z86.39 - Personal history of other endocrine, nutritional and metabolic disease Category: Medical Plan: She is S/P a 3 gland parathyroidectomy, but unfortunately labs did not meet curative criteria. Repeat labs are WNL. Repeat DXA also WNL. She is officially cured of her hyperparathyroidism. Will recommend her PCP routinely monitor calcium levels. Most recent calcium levels from 2023 within normal limits. (4) Hypothyroid: Code(s): E03.9 - Hypothyroidism, unspecified Category: Medical Qualifiers: Hypothyroidism type: postoperative Qualified Code(s): E89.0 - Postprocedural hypothyroidism Plan: Patient with postsurgical hypothyroidism, on 137 mcg levothyroxine 6 and a pills a week. She is taking it appropriately. Given indeterminate response to therapy her TSH goal is between 0.1-0.5. She is currently on levothyroxine 137 mcg 6.5 pills a week. Plan: -. Ordered TSH, free T4, Plan I spent 45 minutes in reviewing the record, seeing the patient and documenting in the medical record. Orders: Orders 2 Thyroid Stimulating Hormone Today Z85.850 - Personal history of malignant neoplasm of thyroid Thyroglobulin Today Z85.850 - Personal history of malignant neoplasm of thyroid US soft tiss head and/or neck Today C73 - Malignant neoplasm of thyroid gland, Z85.850 - Personal history of malignant neoplasm of thyroid CT chest wo IV con Today C73 - Malignant neoplasm of thyroid gland, Z85.850 - Personal history of malignant neoplasm of thyroid Free T4 (Free Thyroxine) Today Z85.850 - Personal history of malignant neoplasm of thyroid Thyroglobulin Tumor Marker Today Z85.850 - Personal history of malignant neoplasm of thyroid Thyroglobulin Antibodies Today Z85.850 - Personal history of malignant neoplasm of thyroid Patient Instructions: Do blood work Do CT chest Do US neck I will follow up with you in 8 weeks Coding Level of Care Code Est Pt Level 5 (65772) Complex EM visit Add On [id number] Diagnoses Hurthle cell carcinoma C73 History of thyroid cancer Z85.850 History of primary hyperparathyroidism Z86.39 Postoperative hypothyroidism E89.0 Hypothyroidism type: postoperative Time Spent (min) 45
[2024-07-09 12:50] VITALS: BP 126/78; PULSE 100; BMI 32.1
== END 2024-07-09 13:53 | disposition home or self-care (01) ==
LOC: HO.ENCR 12:39
PROVIDERS: PCP Internal Medicine; Visit Provider Student in an Organized Health Care Education/Training Program
DX: C73 Malignant neoplasm of thyroid gland (principal); Z85.850 Personal history of malignant neoplasm of thyroid; Z86.39 Personal history of other endocrine, nutritional and metabolic disease; E89.0 Postprocedural hypothyroidism
CPT/HCPCS: 99215

== ENCOUNTER → 2024-07-09 12:38 | Outpatient (BNVA) | payer OTHER, SELFPAY | PROVIDERS: PCP Internal Medicine; Visit Provider Student in an Organized Health Care Education/Training Program ==

== ENCOUNTER 2024-07-16 07:31 | Outpatient (REF) | payer OTHER, SELFPAY ==
[2024-07-16 07:46] LABS: MANUAL DIFF FLAG NO
[2024-07-16 08:26] LABS: Basophils Absolute Auto 0.1 X10*3/uL (0.0-0.2); Basophils Percent Auto 0.8 % (0-2); Eosinophils Absolute Auto 0.1 X10*3/uL (0.0-0.4); Eosinophils Percent Auto 1.7 % (0-4); Hematocrit 41.4 % (37.0-47.0); Hemoglobin 13.9 g/dl (12.0-16.0); Imm Gran Abs Auto 0.01 X10*3/uL (0.00-0.03); Imm Gran Pct Auto 0.2 % (0.0-0.4); Lymphocytes Absolute Auto 1.9 X10*3/uL (1.2-4.9); Lymphocytes Percent Auto 29.2 % (20-40); Mean Corpuscular HGB Conc 33.6 g/dl (31.0-35.0); Mean Corpuscular Volume 89.2 fL (80.0-98.0); Mean Platelet Volume 8.8 fL (9.4-12.3); Monocytes Absolute Auto 0.5 X10*3/uL (0.1-1.2); Monocytes Percent Auto 7.3 % (2-11); Neutrophils Percent Auto 60.8 % (45-73); Platelet Count 343 X10*3/uL (160-400); Red Blood Count 4.64 X10*6/uL (4.20-5.50); Red Cell Distribution Width 12.2 % (11.0-16.0); White Blood Count 6.6 X10*3/uL (4.8-10.8)
[2024-07-16 08:32] LABS: Estimated Average Glucose 154 mg/dL; Hemoglobin A1C 181.0515 umol/L; Total Hemoglobin (HGBA1C) 3446.0432 umol/L
[2024-07-16 09:01] LABS: Alanine Aminotransferase 54 U/L (0-31); Albumin Level 4.4 g/dL (3.5-5.0); Alkaline Phosphatase 58 U/L (39-117); Anion Gap 13 (12-20); Aspartate Amino Transferase 31 U/L (5-31); Bilirubin Total 0.4 mg/dL (0.0-1.0); Blood Urea Nitrogen 17 mg/dL (9-16); Calcium 10.3 mg/dL (8.4-10.2); Carbon Dioxide 25 mmol/L (22-29); Chloride 104 mmol/L (96-108); Estimated Glomerular Filt Rate > 60; Glucose Random 150 mg/dL (60-115); Potassium 4.3 mmol/L (3.3-5.1); Sodium 138 mmol/L (135-145); Total Protein 7.5 g/dL (6.5-8.0)
[2024-07-16 09:08] LABS: TSH reflex Free T4 0.89 uIU/mL (0.32-4.0); Thyroid Stimulating Hormone 0.89 uIU/mL (0.32-4.0)
[2024-07-16 09:15] LABS: Free T4 (Free Thyroxine) 0.98 ng/dL (0.71-1.85)
[2024-07-17 19:59] LABS: Thyroglobulin 0.2 ng/mL; Thyroglobulin Antibodies <1 IU/mL (< or = 1)
[2024-07-18 19:18] LABS: LDL Cholesterol Direct 97 mg/dL (<100)
[2024-07-19 23:02] LABS: Thyroglobulin Antibody <1 IU/mL (<=1); Thyroglobulin Level 0.1 ng/mL
== END 2024-07-16 07:32 | disposition home or self-care (01) ==
LOC: HO.LAB 07:31
PROVIDERS: Absent Provider Internal Medicine; PCP Internal Medicine; Visit Provider Student in an Organized Health Care Education/Training Program
DX: E11.40 Type 2 diabetes mellitus with diabetic neuropathy, unspecified (principal); Z79.4 Long term (current) use of insulin; E66.09 Other obesity due to excess calories; Z68.31 Body mass index [BMI] 31.0-31.9, adult; E78.9 Disorder of lipoprotein metabolism, unspecified; I10 Essential (primary) hypertension; Z85.850 Personal history of malignant neoplasm of thyroid
CPT/HCPCS: 36415; 80053; 83036; 83721; 84432; 84439; 84443; 85025; 86800

== ENCOUNTER 2024-07-17 14:42 | Outpatient (REF) | payer OTHER, SELFPAY | END 2024-07-17 14:43 | disposition home or self-care (01) | LOC: HO.US 14:42 | PROVIDERS: PCP Internal Medicine; Visit Provider Student in an Organized Health Care Education/Training Program | DX: Z85.850 Personal history of malignant neoplasm of thyroid (principal) | CPT/HCPCS: 76536 ==

== ENCOUNTER → 2024-07-17 14:45 | Outpatient (BNV) | payer OTHER, SELFPAY | PROVIDERS: PCP Internal Medicine; Visit Provider Radiology Diagnostic Radiology | DX: R59.0 Localized enlarged lymph nodes (principal); E89.0 Postprocedural hypothyroidism | CPT/HCPCS: 76536 ==

== ENCOUNTER 2024-07-18 09:18 | Outpatient (AMB) | payer OTHER, SELFPAY ==
[2024-07-18 09:21] VITALS: BP 112/76; PULSE 90; O2SAT 97; BMI 31.5
--- NOTE | 2024-07-18 09:21 | MHC.PC.OV ---
Vital Signs 07/18/24 09:21 Height 5 ft 8 in Weight 207 lb 8 oz BMI 31.5 BP 112/76 Blood Pressure Location Lt brachial Position Sitting Pulse 90 Pulse Source Pulse Oximeter Pulse Oximetry (%) 97 Oxygen Delivery Method Room Air Intake Visit Reasons: Weight Check Allergies hydromorphone [From DILAUDID] Adverse Reaction (Severe, Verified 07/18/24 09:21) PROJECTILE VOMITING Medication List - Last Reconciled 07/18/24 by Yvette Chopra MD atorvastatin 40 mg PO BEDTIME 90 days blood sugar diagnostic (Contour Next Test Strips) Check blood sugar four times a day As directed blood sugar diagnostic (FreeStyle Precision Papa Strips) once a day for calibration blood sugar diagnostic (OneTouch Verio test strips) 4x daily blood-glucose meter (Contour Next EZ Meter kit) As directed clobetasol 0.05% 1 appl topical BID PRN 30 days clotrimazole-betamethasone 1-0.05 % 1 appl topical ONCE 30 days Dexcom G7 Sensor (blood-glucose sensor) As directed, change every 10 days NS docusate sodium (Colace) 200 mg (2 x 100 mg) PO BEDTIME glipizide-metformin 5-500 mg 1 tab PO BID 90 days hydrochlorothiazide 25 mg PO QAM insulin glargine U-300 conc 28 units (0.0933 mL) subcut BEDTIME 90 days lancets As directed lancets (OneTouch Delica Plus Lancet) 4x daily lancets (Microlet Lancet) Check blood sugar four times daily As directed levothyroxine 137 mcg PO DAILY 90 days lisinopril 40 mg PO DAILY omeprazole 40 mg PO DAILY 90 days omeprazole 40 mg PO DAILY 90 days pen needle, diabetic (BD Gabriela 2nd Gen Pen Needle) daily semaglutide 1 mg (0.75 mL) subcut QWEEK 90 days semaglutide (Ozempic) mg subcut valacyclovir 500 mg PO ONCE PRN 90 days Tobacco use date assessed: 07/18/24 Dental Screening Dental Screen Date: 07/18/24 Did you have a dental visit in the last 12 months?: Yes Did you have a dental problem in the last 6 months where you did not have access to dental care?: No Was dental information given to patient?: Patient has dentist HPI Weight Check HPI Details Patient is 53-year-old female came in for her regular follow-up appointment Labs done recently reviewed with the patient Patient is doing well Blood pressure is well-controlled patient is on lisinopril 40 mg and hydrochlorothiazide 25 mg Patient is diabetic and is taking long-acting insulin 28 units and glipizide metformin 5-500 b.i.d. along with Ozempic She was able to lose some weight since seen last BMI is 31.5 Lipid disorder: Continue atorvastatin 40 mg Patient have a history of thyroid cancer, patient is seeing an oncologist at [facility] every [address] Alejandra She has started seeing Dr. Rincon as well at [facility] and both providers are collaborating her care Due for labs before next visit in three-month Due for physical exam then [facility] Medical History Hypothyroid Recurrent thyroid cancer Incurved toenail Cervical lymphadenopathy Vitamin D deficiency History of thyroid cancer Diabetes type 2, uncontrolled Herpes labialis Lipid disorder Seborrheic dermatitis of scalp Psoriasis Hypertension, essential Headache syndrome Obesity (BMI 30-39.9) History of primary hyperparathyroidism Dyslipidemia Diabetes type 2, controlled Post-surgical hypothyroidism Primary thyroid cancer Surgical History History of esophagogastroduodenoscopy (EGD) Hx of colonoscopy History of back surgery History of partial hysterectomy Hx of thyroidectomy History of partial thyroidectomy Family History Father Diabetes Hypertension Mother Degenerative arthritis Hypertension Maternal Grandmother Colon cancer Other Substance use disorder Social History Household Members: Children Household Members Other:: single- Housing: House Are you a primary intensive care unit registered nurse to a significant other at home: No Do you presently have visiting nurse or other home services: No Alcohol intake: never Patient Tobacco Use Status: Never used Tobacco e-Cigarette/Vaping Use: Never Used service: No Current occupational status: employed 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 1. Little interest or pleasure in doing things: not at all 2. Feeling down, depressed, or hopeless: not at all 3. Trouble falling or staying asleep, or sleeping too much: more than half the days 4. Feeling tired or having little energy: not at all 5. Poor appetite or overeating: not at all 6. Feeling bad about yourself - or that you are a failure or have let yourself or your family down: not at all 7. Trouble concentrating on things, such as reading the newspaper or watching television: not at all 8. Moving or speaking so slowly that other people could have noticed. Or the opposite - being so fidgety or restless that you have been moving around a lot more than usual: not at all 9. Thoughts that you would be better off or of hurting yourself in some way: not at all Total score: 2 Depression Screening Interpretation: Negative Depression Screening Done: Yes 33707 - PHQ-9 Billing: Yes Source: Developed by Drs. Leonidas No, Akanksha Robin, Ej Hamilton and colleagues, with an educational everett from [employer]. Thrive Questionnaire Date Thrive assessed: 07/18/24 I am a: Patient What is your living situation today?: I have a steady place to live Within the past 12 months, did the food you bought not last and you didn't have the money to get more?: Never true Within the past 12 months, did you worry whether your food would run out before you got money to buy more?: Never true Do you have trouble paying for medicines?: No Do you have trouble getting transportation to medical appointments?: No Do you have trouble paying your heating and electricity bill?: No Do you have trouble taking care of your child, family member or friend?: No Do you have trouble with day-to-day activities such as bathing, preparing meals, shopping, managing finances, etc.?: No Are you currently unemployed and looking for a job?: No Are you interested in more education?: No Please select the resources that you would like help with: None Currently or been in a relationship where the following occur: No concerns reported THRIVE Score: 0 AUDIT C Alcohol Use Questionnaire (AUDIT-C) 1. How often do you have a drink containing alcohol?: Monthly or less 2. How many drinks containing alcohol do you have on a typical day when you are drinking?: 1 or 2 3. How often do you have six or more drinks on one occasion?: Never Total Score: 1 Score Reviewed/Action Taken: Yes GEE-7 AMB Questionnaire GEE-7 Date GEE - 7 assessed: 07/18/24 Feeling nervous, anxious, or on edge: 0 = Not at all Not being able to stop or control worryin = Not at all Worrying too much about different things: 0 = Not at all Trouble relaxin = Not at all Being so restless that it is hard to sit still: 0 = Not at all Becoming easily annoyed or irritable: 0 = Not at all Feeling afraid as if something awful might happen: 0 = Not at all Total GEE-7 score (0-4 normal; 5-9 mild; 10-14 moderate; 15-21 severe): 0 Source: Developed by Drs. Leonidas No, Akanksha Robin, Ej Hamilton and colleagues, with an educational everett from [employer]. GEE-7 Assessment Billing GEE-7 Assessment Tool: GEE-7 Assessment 28657 Review of Systems Const Denies chills and Denies fever(s) ENT Denies epistaxis and Denies nasal discharge Card Denies chest pain Resp Denies chest congestion, Denies cough and Denies hemoptysis GI Denies diarrhea and Denies nausea Skin/Breast Denies rash Neuro Reports no additional complaints Psych Reports no additional complaints Endo Reports no additional complaints Physical exam (Primary Care) Vital Signs: Last Vital Signs Pulse 90 07/18/24 09:21 BP 112/76 07/18/24 09:21 Pulse Ox 97 07/18/24 09:21 Oxygen Delivery Method Room Air 07/18/24 09:21 BMI result Body Mass Index 31.5 Tobacco/Smoking Status: Tobacco use Status Tobacco use date assessed 07/18/24 07/18/24 09:22 Patient Tobacco Use Status Never used Tobacco 07/18/24 09:22 e-Cigarette/Vaping Use Never Used 07/18/24 09:22 PHQ-9: PHQ-9 Score PHQ-9: Total score 2 07/18/24 09:27 Depression Screening Interpretation: Negative Thrive Assessment: Date of Thrive Assessment Date Thrive assessed 07/18/24 07/18/24 09:27 Currently or been in a relationship where the following occur: No concerns reported Const General: cooperative, comfortable and no acute distress Orientation/consciousness: patient oriented x3 HENMT Head: Yes normocephalic Eyes General: appearance normal, both eyes and all related structures Neck Neck: Yes supple Resp Effort & Inspection: normal respiratory effort, no cough and no stridor Cardio Rhythm: regular rhythm Heart sounds: S1 normal heart sound present and S2 normal heart sound present Skin General skin exam: turgor normal Neuro General: patient oriented x3, tone normal and moves all extremities Extrem Right lower extremity: no edema Left lower extremity: no edema Coding Level of Care Code Est Pt Level 4 (50504) Diagnoses Hot flashes due to menopause N95.1 Controlled type 2 diabetes mellitus with diabetic neuropathy, with long-term current use of insulin E11.40; Z79.4 Diabetes mellitus nursing home insulin use: with nursing home use Diabetes mellitus complication status: with neurologic complications Diabetes mellitus complication detail: with unspecified neuropathy Headache syndrome G44.89 Lipid disorder E78.9 Post-surgical hypothyroidism E89.0 Class 1 obesity due to excess calories with serious comorbidity and body mass index (BMI) of 31.0 to 31.9 in adult E66.09; Z68.31 Obesity classification: adult class 1 (BMI 30 - 34.9) Serious obesity comorbidity presence: with serious comorbidity Body mass index: BMI 31.0-31.9 care home (current) use of insulin Z79.4 Additional Codes GEE-7 Assessment Billing - GEE-7 Assessment Tool: GEE-7 Assessment [id number] ([id number]) PHQ-9 - 37326 - PHQ-9 Billing: Yes ([id number]) Assessment & Plan Assessment & Plan (1) Hot flashes due to menopause: Code(s): N95.1 - Menopausal and female climacteric states Category: Medical (2) Diabetes type 2, controlled: Code(s): E11.9 - Type 2 diabetes mellitus without complications Category: Medical Qualifiers: Diabetes mellitus nursing home insulin use: 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 Diabetes mellitus complication status: with neurologic complications Diabetes mellitus complication detail: with unspecified neuropathy Qualified Code(s): E11.40 - Type 2 diabetes mellitus with diabetic neuropathy, unspecified; Z79.4 - care home (current) use of insulin (3) Headache syndrome: Code(s): G44.89 - Other headache syndrome Category: Medical (4) Lipid disorder: Code(s): E78.9 - Disorder of lipoprotein metabolism, unspecified Category: Medical (5) Post-surgical hypothyroidism: Code(s): E89.0 - Postprocedural hypothyroidism Category: Medical (6) Obesity due to excess calories: Code(s): E66.09 - Other obesity due to excess calories Category: Medical Qualifiers: Obesity classification: adult class 1 (BMI 30 - 34.9) Serious obesity comorbidity presence: with serious comorbidity Body mass index: BMI 31.0-31.9 Qualified Code(s): E66.09 - Other obesity due to excess calories; Z68.31 - Body mass index [BMI] 31.0-31.9, adult (7) senior 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: Code(s): Z79.4 - senior 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 Category: Medical Plan Patient is 53-year-old female came in for her regular follow-up appointment Labs done recently reviewed with the patient Patient is doing well except that she has started having severe hot flashes at night which is disrupting her sleep She does have OBGYN and she will discuss further when she has appointment in September Meanwhile I am starting her on venlafaxine 37.5 mg Blood pressure is well-controlled patient is on lisinopril 40 mg and hydrochlorothiazide 25 mg Patient is diabetic and is taking long-acting insulin 28 units and glipizide metformin 5-500 b.i.d. along with Ozempic She was able to lose some weight since seen last BMI is 31.5 Lipid disorder: Continue atorvastatin 40 mg Patient have a history of thyroid cancer, patient is seeing an oncologist at [facility] every [address] Alejandra She has started seeing Dr. Rincon as well at [facility] and both providers are collaborating her care Due for labs before next visit in three-month Due for physical exam then Orders: Orders Comprehensive Met. Panel 3 Months E11.40 - Type 2 diabetes mellitus with diabetic neuropathy, unspecified, E66.09 - Other obesity due to excess calories, E78.9 - Disorder of lipoprotein metabolism, unspecified, E89.0 - Postprocedural hypothyroidism, G44.89 - Other headache syndrome, N95.1 - Menopausal and female climacteric states, Z68.31 - Body mass index [BMI] 31.0-31.9, adult, Z79.4 - senior 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 Lipase 3 Months E11.40 - Type 2 diabetes mellitus with diabetic neuropathy, unspecified, E66.09 - Other obesity due to excess calories, E78.9 - Disorder of lipoprotein metabolism, unspecified, E89.0 - Postprocedural hypothyroidism, G44.89 - Other headache syndrome, N95.1 - Menopausal and female climacteric states, Z68.31 - Body mass index [BMI] 31.0-31.9, adult, Z79.4 - care home (current) use of insulin Amylase 3 Months E11.40 - Type 2 diabetes mellitus with diabetic neuropathy, unspecified, E66.09 - Other obesity due to excess calories, E78.9 - Disorder of lipoprotein metabolism, unspecified, E89.0 - Postprocedural hypothyroidism, G44.89 - Other headache syndrome, N95.1 - Menopausal and female climacteric states, Z68.31 - Body mass index [BMI] 31.0-31.9, adult, Z79.4 - care home (current) use of insulin Complete Blood Count Auto Diff 3 Months E11.40 - Type 2 diabetes mellitus with diabetic neuropathy, unspecified, E66.09 - Other obesity due to excess calories, E78.9 - Disorder of lipoprotein metabolism, unspecified, E89.0 - Postprocedural hypothyroidism, G44.89 - Other headache syndrome, N95.1 - Menopausal and female climacteric states, Z68.31 - Body mass index [BMI] 31.0-31.9, adult, Z79.4 - care home (current) use of insulin TSH reflex Free T4 3 Months E11.40 - Type 2 diabetes mellitus with diabetic neuropathy, unspecified, E66.09 - Other obesity due to excess calories, E78.9 - Disorder of lipoprotein metabolism, unspecified, E89.0 - Postprocedural hypothyroidism, G44.89 - Other headache syndrome, N95.1 - Menopausal and female climacteric states, Z68.31 - Body mass index [BMI] 31.0-31.9, adult, Z79.4 - senior 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 LDL Cholesterol Direct 3 Months E11.40 - Type 2 diabetes mellitus with diabetic neuropathy, unspecified, E66.09 - Other obesity due to excess calories, E78.9 - Disorder of lipoprotein metabolism, unspecified, E89.0 - Postprocedural hypothyroidism, G44.89 - Other headache syndrome, N95.1 - Menopausal and female climacteric states, Z68.31 - Body mass index [BMI] 31.0-31.9, adult, Z79.4 - care home (current) use of insulin Microalbumin, Random (w Creat) 3 Months E11.40 - Type 2 diabetes mellitus with diabetic neuropathy, unspecified, E66.09 - Other obesity due to excess calories, E78.9 - Disorder of lipoprotein metabolism, unspecified, E89.0 - Postprocedural hypothyroidism, G44.89 - Other headache syndrome, N95.1 - Menopausal and female climacteric states, Z68.31 - Body mass index [BMI] 31.0-31.9, adult, Z79.4 - senior 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 Medications: New venlafaxine ER 37.5 mg PO DAILY 30 caps 2RF
== END 2024-07-18 09:47 | disposition home or self-care (01) ==
LOC: HO.HMCC 09:18
PROVIDERS: PCP Internal Medicine; Visit Provider Internal Medicine
DX: N95.1 Menopausal and female climacteric states (principal); E11.40 Type 2 diabetes mellitus with diabetic neuropathy, unspecified; Z79.4 Long term (current) use of insulin; G44.89 Other headache syndrome; E78.9 Disorder of lipoprotein metabolism, unspecified; E89.0 Postprocedural hypothyroidism; E66.09 Other obesity due to excess calories; Z68.31 Body mass index [BMI] 31.0-31.9, adult

== ENCOUNTER → 2024-07-18 09:18 | Outpatient (BNVA) | payer OTHER, SELFPAY | PROVIDERS: PCP Internal Medicine; Visit Provider Internal Medicine | DX: N95.1 Menopausal and female climacteric states (principal); E11.40 Type 2 diabetes mellitus with diabetic neuropathy, unspecified; G44.89 Other headache syndrome; E78.9 Disorder of lipoprotein metabolism, unspecified; E89.0 Postprocedural hypothyroidism; E66.09 Other obesity due to excess calories; Z68.31 Body mass index [BMI] 31.0-31.9, adult; Z79.4 Long term (current) use of insulin; Z79.899 Other long term (current) drug therapy | CPT/HCPCS: 96127 ==

== ENCOUNTER 2024-07-24 07:40 | Outpatient (REF) | payer OTHER, SELFPAY ==
--- NOTE | ~2024-07-24 | CT_ITS ---
EXAMINATION: CT CHEST WITHOUT CONTRAST CLINICAL INFORMATION: Personal history of malignant neoplasm of the thyroid, hurthie cell cancer COMPARISON: 05/31/2022 TECHNIQUE: Multidetector volumetric CT imaging of the chest was done. Axial MIP volume rendering provided. Sagittal and coronal reformatted images were obtained. This CT examination was performed using dose optimization techniques as appropriate, variously including the following: *Automated exposure control *Adjustment of mA and/or kV according to patient size (this includes techniques or standardized protocols for targeted exams where dose is matched to indication/reason for exam; i.e. extremities or head) *Use of iterative reconstruction technique DLP: 216 mGy-cm FINDINGS: DEMOLITIONIST: Azygos lobe. LUNGS: Trachea and bronchi are patent. No consolidations or groundglass opacities. No significant change minor increased markings medial right lower lobe, 5:358. No suspicious lung nodules. MEDIASTINUM: Status post thyroidectomy with surgical clips. No pathologic lymphadenopathy. Minor anterior mediastinal stranding is unchanged. Heart size within normal limits. No pericardial effusion. Nonaneurysmal aorta. Nonenlarged pulmonary arteries. CORONARY ARTERY CALCIFICATION: None visualized on this study. PLEURA: Azygos lobe. There is no pleural effusion. No pleural mass or thickening. AXILLA: No lymphadenopathy. UPPER ABDOMEN: Diffuse hypodensity to the liver parenchyma with focal fatty sparing along the gallbladder fossa. OSSEOUS STRUCTURES: Degenerative changes. No suspicious osseous lesions. CT/CT chest wo IV con IMPRESSION: No developing or suspicious pulmonary nodules. No CT evidence of metastatic disease. Hepatic steatosis. Electronically signed by: Viviana Beltre MD 07/24/2024 03:08 PM [facility] [place]
== END 2024-07-24 07:41 | disposition home or self-care (01) ==
LOC: HO.CT 07:40
PROVIDERS: PCP Internal Medicine; Visit Provider Student in an Organized Health Care Education/Training Program
DX: Z85.850 Personal history of malignant neoplasm of thyroid (principal)
CPT/HCPCS: 71250

== ENCOUNTER 2024-09-03 12:43 | Outpatient (AMB) | payer OTHER, SELFPAY ==
[2024-09-03 12:44] VITALS: BP 118/84; PULSE 91; BMI 29.9
--- NOTE | 2024-09-03 12:44 | A.OFFVIS_ITS ---
Vital Signs 3 09/03/24 12:44 Height 5 ft 8 in Weight 196 lb 10.437 oz BMI 29.9 BP 118/84 Blood Pressure Location Lt brachial Position Sitting Pulse 91 Pulse Source Pulse Oximeter Intake Visit Reasons: Personal history of malignant neoplasm of thyroid Intake Note: Patient present today for Personal history of malignant neoplasm of thyroid. Operations Inspector Required: No Accompanied by: Self / Same As Patient Allergies hydromorphone [From DILAUDID] Adverse Reaction (Severe, Verified 09/03/24 12:48) PROJECTILE VOMITING Medication List - Last Reconciled 09/03/24 by Ilana Rincon MD atorvastatin 40 mg PO BEDTIME 90 days blood sugar diagnostic (Contour Next Test Strips) Check blood sugar four times a day As directed blood sugar diagnostic (FreeStyle Precision Papa Strips) once a day for calibration blood sugar diagnostic (OneTouch Verio test strips) 4x daily blood-glucose meter (Contour Next EZ Meter kit) As directed clobetasol 0.05% 1 appl topical BID PRN 30 days clotrimazole-betamethasone 1-0.05 % 1 appl topical ONCE 30 days Dexcom G7 Sensor (blood-glucose sensor) As directed, change every 10 days NS docusate sodium (Colace) 200 mg (2 x 100 mg) PO BEDTIME glipizide-metformin 5-500 mg 1 tab PO BID 90 days hydrochlorothiazide 25 mg PO QAM insulin glargine U-300 conc 28 units (0.0933 mL) subcut BEDTIME 90 days lancets As directed lancets (OneTouch Delica Plus Lancet) 4x daily lancets (Microlet Lancet) Check blood sugar four times daily As directed levothyroxine 137 mcg PO DAILY 90 days lisinopril 40 mg PO DAILY omeprazole 40 mg PO DAILY 90 days omeprazole 40 mg PO DAILY 90 days pen needle, diabetic (BD Gabriela 2nd Gen Pen Needle) daily semaglutide 1 mg (0.75 mL) subcut QWEEK 90 days semaglutide (Ozempic) mg subcut valacyclovir 500 mg PO ONCE PRN 90 days venlafaxine ER 37.5 mg PO DAILY HPI Comments Details: 53-year-old female coming in today with 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 She also has a history of hyperparathyroidism status post subtotal parathyroidectomy. HPI of thyroid cancer in detail In 2019 patient Was feeling very tired , diagnosed with primary hyperparahtyroidism , thats why was having neck evaluation with imaging. Was found to have thyroid nodules at that time. Underwent FNA biopsies that were positive for malignancy. I do not have these results. 04/24/2019: Underwent right hemithyroidectomy which revealed 0.9 cm focus of Hurthle cell carcinoma minimally invasive, no angioinvasion, no lymphatic invasion, no perineural invasion. Margins were negative. 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 This was classified as AJCC stage I (pT1b pNX) 11/13/2019: Underwent completion thyroidectomy: Surgical path was benign Did not initially receive I 131 T1 remnant ablation Non stimulated TG levels have remained less than 1 2019: Ultrasound of the head and neck revealed pathologically enlarged lymph nodes, 07/31/2020: FNA biopsy for right level 2, 1.7 cm cervical lymph node with no evidence of metastatic disease and TG washout was negative 12/17/2021: Ultrasound of the head and neck revealed to have normal-appearing lymph nodes, a right level 3, 2.2 cm and a left level 2, 1.5 cm lymph node. 12/23/2021: Underwent I 131 remnant ablation with 30.9 mCi of I 131, completed via Thyrogen stimulation. 12/23/2021: Labs TSH: 56.14, stimulated TG 3.3, TG antibody negative. 01/01/2022: Post treatment whole-body scan showed avid uptake within the thyroid bed, as well as minimally diffuse uptake within the bilateral lungs. Otherwise uptake was physiologic. 01/21/22:FNA biopsy of the R cervical level 3 2.2 cm lymph node and the L cervical level 2 1.5 cm lymph node both with benign cytology and negative TG washout. 05/31/2022: CT of the chest reveals small classified granulomas in the lung but no evidence of a metastatic process. 12/2022: Ultrasound neck at [facility] without any abnormal lymph nodes again showed a hypoechoic density i inferior to the left thyroid bed 4 mm. 02/18/23: WBS showed interval decrease uptake in the lungs. No other iodine avid metastatic disease seen. 02/16/2023: Labs TSH 67.21, stimulated TG 0.2, TG antibody undetectable 06/2023: had a 2nd opinion at [facility] in fall of 2022 where she underwent ultrasound of the neck which showed no abnormal LNS, showed a left hypoechoic 4 mm lesion ovoid, inferior to the left thyroid suspected to be parathyroid adenoma. . CT chest without any metastatic disease. Interval hisory 07/17/2024: Ultrasound neck report not finalized yet but I reviewed the images myself, showed a right level 3 ovoid 0.6 cm in AP dimension cm lymph node which is stable in size compared to prior ultrasound neck from December 2021, it has a thickened cortex and absent hilum., left-sided level 1B lymph node also read as abnormal measuring 0.8 cm in the AP dimension with absent hilum but when I look at the images myself it appears to have a hilum, does this has remained stable in size compared to prior ultrasound. Left-sided level 3, 1.3 X 0.8 X 0.6 cm appears to have a thickened cortex round shape. Again stable in size from prior ultrasound. Other normal avoid she had lymph nodes noted. 07/24/2024: CT chest did not show any metastatic disease 07/16/2024 labs TSH 0.89, free T4 0.98, thyroglobulin 0.1, TG antibody less than 1 Currentnly feeling well Ozempic increased to 1 mg, has lost 20 lbs on the increased dose for DM type 2 No dysphagia , did have some in 2022, underwne tEGD wuth balloon dilation , dysohagia resolved . No voice chngaes, no anterior pressure. Taking levothyroxine 137 mcg 6.5 pills a week She is on high dose biotin No palpitations , no tremors. having hot flashes . But is postmenopausal. Chronic constipation. Endorses Hair loss. History of hypercalcemia and primary Hyperparathyroidism She initially underwent a single gland parathyroidectomy 04/24/2019. She had resection of her R superior parathyroid gland at that time with intraoperative PTH declining from 122 to 23 indicating cure. She unfortunately had recurrence of her hyperparathyroidism and underwent an additional 2 gland parathyroidectomy 11/13/2019 with resection of her L superior and L inferior parathyroid glands. Unfortunately intraoperative PTH did not meet curative criteria with a decline from 61 to 59. She had a DXA scan most recently in Sep [address] [facility] which was WNL. Physical exam General: sitting comfortably in no acute distress HEENT: normocephalic/atraumatic, moist oral mucosa Neck: supple, symmetrical, no palpable lymph nodes or masses Cardiac: normal heart sounds Pulm: normal breath sounds B/L, no added breath sounds Abd: not distended, no tenderness Extremities: no edema, no signs of myxedema Neuro: AAO x3, Speech: normal, no facial droop, moving all 4 extremities Laboratory Tests 05/15/19 06/18/19 08/14/19 10:25 11:12 10:10 TSH Thyroglobulin 12.9 H 12.9 13.7 H Thyroglobulin Antibody <1 <1 <1 01/22/20 07/10/20 10/10/20 08:30 08:48 08:30 TSH 2.10 1.21 Thyroglobulin 0.9 H 0.6 H 0.5 H Thyroglobulin Antibody <1 <1 <1 01/06/21 11/16/21 11/19/21 09:30 10:32 08:03 TSH 1.43 3.29 5.04 H Thyroglobulin 0.5 H 0.7 L Thyroglobulin Antibody <1 <1 12/23/21 01/18/22 05/20/22 11:58 10:00 09:28 TSH 56.14 H 3.56 0.02 L Thyroglobulin 3.3 3.0 0.1 L Thyroglobulin Antibody <1 1 09/23/22 09/23/22 09/23/22 16:09 16:09 16:09 TSH 1.19 Thyroglobulin 0.1 H 0.1 L Thyroglobulin Antibody <1 <1 02/16/23 07/19/23 01/20/24 09:10 09:06 08:24 TSH 67.21 H 0.48 1.33 Thyroglobulin 0.2 H Thyroglobulin Antibody <1 Laboratory Tests 01/20/24 08:24 Calcium 10.2 Albumin 4.4 Laboratory Tests 07/16/24 07:37 TSH 0.89 Free T4 0.98 Thyroglobulin 0.1 H Thyroglobulin Antibody <1 Imaging and Pathology US 06/2020 US SOFT TISSUE OF THE NECK CLINICAL INFORMATION: Malignant neoplasm of thyroid gland. COMPARISON: Ultrasound soft tissue head/neck dated 11/21/2018. Thyroid ultrasound 06/19/2019. TECHNIQUE: Linear transducer grayscale and color Doppler examination of the thyroid bed and surrounding soft tissue. FINDINGS: RIGHT NECK: 1.Level 2 lymph node measures 1.0 x 0.5 x 0.8 cm. It has absent hilum with cystic features, abnormal. 2.Level 2 lymph node measures 1.7 x 0.6111 cm. It has slit-like hilum and appears normal. 3.Level 3 lymph node measures 1.7 x 0.6 x 1.1 cm. Absent hilum with cystic features, abnormal. 4.Level 5A lymph node measures 1.0 x 0.7 x 0.7 cm. It has absent hilum and has cystic and round features. LEFT NECK: 1.Level 1B lymph node measures 1.2 x 0.9 x 1.1 cm. It has absent hilum and has dominant cystic features with septation. Abnormal. 2.Level 2 lymph node measures 1.6 x 0.8 x 1.6 cm. Septations, abnormal. 3.Level 3 lymph node measures 1.4 x 0.6 x 0.8 cm. It has normal echogenic medulla and hypoechoic cortex, normal. 4.Level 3 lymph node measures 1.3 x 0.3 x 0.7 cm. There is normal echogenic medulla. Normal. 5.Level 4 lymph node measures 1.5 x 0.6 x 0.9 cm. It is an echogenic medulla and typical lymph node appearance, normal. 6.Level 2 lymph node measures 0.9 x 0.3 x 0.6 cm and has normal lymph node characteristics. US/US soft tiss head and/or neck IMPRESSION: Neck lymph nodes as described above. US SOFT TISSUE NECK 01/01 CLINICAL INFORMATION: Thyroid cancer. COMPARISON: Previous ultrasound June 2020 TECHNIQUE: Ultrasound of the neck soft tissues is performed with high- frequency hunt-scale imaging and color Doppler. FINDINGS: THYROID BED: Prior thyroidectomy. No residual thyroid tissue demonstrated in the thyroid bed. No cystic or solid nodules demonstrated in the thyroid bed. RIGHT NECK SOFT TISSUES: There are 3 right cervical lymph nodes. The largest nodes are as follows: Level 2: 1.6 x 0.5 x 0.6 cm. previous 1.7 x 0.6 x 1.1 cm. Normal elizabeth architecture. Level 3: 2.2 x 0.8 x 1.3 cm. previous 1.7 x 0.6 x 1.1 abnormal elizabeth architecture with slitlike hilum. LEFT NECK SOFT TISSUES: There are 4 left cervical lymph nodes. The largest nodes are as follows: Level 2: 1.4 x 1 x 1.5 cm. previous 1.2 x 0.9 x 1.1 abnormal elizabeth architecture with cortical thickening Level 2: 1.6 x 0.7 x 0.6 cm. Normal elizabeth architecture. There are level 3 and level 4 lymph nodes that appear unchanged in size with normal elizabeth architecture. US/US soft tiss head and/or neck IMPRESSION: Bilateral cervical lymph nodes. Most suspicious lymph node is a right zone 3 lymph node that measures 2.2 x 0.8 x 1.3 cm and has a slitlike hilum. Ct chest 01/2020 CT CHEST WITHOUT CONTRAST CLINICAL INFORMATION: History of thyroid malignancy. COMPARISON: Chest x-ray 12/11/2019 TECHNIQUE: Multidetector volumetric CT imaging of the chest was done. Axial MIP volume rendering provided. Sagittal and coronal reformatted images were obtained. This CT examination was performed using dose optimization techniques as appropriate, variously including the following: *Automated exposure control *Adjustment of mA and/or kV according to patient size (this includes techniques or standardized protocols for targeted exams where dose is matched to indication/reason for exam; i.e. 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 No pulmonary nodule, mass or groundglass density seen. There is a right azygos lobe noted. MEDIASTINUM: The thyroid gland has been surgically removed. Central trachea and the bronchi are widely patent. Heart size and the great vessels are normal caliber. No pericardial effusion seen. There is no abnormal mediastinal adenopathy. PLEURA: There is no pleural effusion. No pleural mass or thickening. AXILLA: Small shotty lymph nodes are seen in bilateral axilla. UPPER ABDOMEN: Visualized liver, spleen, pancreas and bilateral adrenal glands unremarkable. OSSEOUS STRUCTURES: No aggressive lytic or sclerotic process seen. There is mild ventral spondylosis of mid dorsal spine. CT/CT chest wo con IMPRESSION: Unremarkable CT chest exam. Fleischner guidelines were followed. CT CHEST WITHOUT CONTRAST 06/03 CLINICAL INFORMATION: Hurthle cell carcinoma with lung metastases COMPARISON: CT chest 01/18/2022 TECHNIQUE: Multidetector volumetric CT imaging of the chest was done. Axial MIP volume rendering provided. Sagittal and coronal reformatted images were obtained. This CT examination was performed using dose optimization techniques as appropriate, variously including the following: *Automated exposure control *Adjustment of mA and/or kV according to patient size (this includes techniques or standardized protocols for targeted exams where dose is matched to indication/reason for exam; i.e. extremities or head) *Use of iterative reconstruction technique DLP: 188 mGy-cm FINDINGS: LUNGS: No new or suspicious pulmonary nodules. Couple tiny sub-4 mm calcified granulomas noted in the right an left lower lobes, unchanged. Unchanged mild linear subpleural scarring in the posterior right lower lobe. No airspace consolidation. Central through segmental airways are clear. Variant azygous fissure/lobe noted. MEDIASTINUM: No cardiomegaly or pericardial effusion. No mediastinal or hilar lymphadenopathy. Status post thyroidectomy with surgical clips in place. CORONARY ARTERY CALCIFICATION: None visualized on this study. PLEURA: There is no pleural effusion. No pleural mass or thickening. AXILLA: No lymphadenopathy. UPPER ABDOMEN: Mild hepatic hypoattenuation/steatosis. Imaged upper abdominal viscera otherwise unremarkable. OSSEOUS STRUCTURES: No acute fracture or suspicious osseous lesion. Mild multilevel degenerative disc disease. CT/CT chest wo IV con IMPRESSION: 1. No new or suspicious pulmonary nodules to suggest pulmonary metastasis. 2. No acute pulmonary process. 3. Mild hepatic steatosis. Dictated By: Gil Sanabria Signed By: <Electronically signed by Gil Sanabria in OV> [facility] Medical History Hypothyroid Recurrent thyroid cancer Incurved toenail Cervical lymphadenopathy Vitamin D deficiency History of thyroid cancer Diabetes type 2, uncontrolled Herpes labialis Lipid disorder Seborrheic dermatitis of scalp Psoriasis Hypertension, essential Headache syndrome Obesity (BMI 30-39.9) History of primary hyperparathyroidism Dyslipidemia Diabetes type 2, controlled Post-surgical hypothyroidism Primary thyroid cancer Surgical History History of esophagogastroduodenoscopy (EGD) Hx of colonoscopy History of back surgery History of partial hysterectomy Hx of thyroidectomy History of partial thyroidectomy Family History Father Diabetes Hypertension Mother Degenerative arthritis Hypertension Maternal Grandmother Colon cancer Other Substance use disorder Social History Household Members: Children Household Members Other:: single- Housing: House Are you a primary acute care nurse practitioner to a significant other at home: No Do you presently have visiting nurse or other home services: No Alcohol intake: never Patient Tobacco Use Status: Never used Tobacco e-Cigarette/Vaping Use: Never Used service: No Current occupational status: employed 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 Hearing needs: No Vision needs: Yes (contacts) Assessment & Plan Assessment & Plan (1) History of thyroid cancer: Code(s): Z85.850 - Personal history of malignant neoplasm of thyroid Category: Medical Plan: 53-year-old female coming in today with past medical history of right 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 She has also had a couple of suspicious lymph nodes on her ultrasound of the neck, and with no malignancy identified on biopsy of suspicious lymph nodes in the neck in July 2020, when she had a right level 2, 1.7 cm lymph node biopsy: And January 2022 when she had a right level 3, 2.2 cm lymph nodes biopsy and a left level 2, 1.5 cm lymph node biopsy., thyroglobulin washout was negative. She had a whole-body scan in February 2023 which showed interval decreased uptake in the lungs and no other iodine avid metastatic disease. She also had a CT chest done at [facility] in fall of 2022 and with us in July 2024 which did not show any structural disease. Ultrasound neck done in July 2024 Identified mostly normal looking lymph nodes, a few small lymph nodes that have some abnormal appearance remained stable in size compared to 2021, we will keep an eye on these and we plan to repeat an ultrasound next year as well. I wonder if the remnant ablation dose targeted possible disease in the lung though at this point we do not have any gross structural evidence of disease. It is also very reassuring to see that her stimulated TG levels has been less than 2 around 0.2 on most recent stimulated labs done in February 2023 and has come down from 3.3 from December 2021.. Unstimulated TG level at 0.1 on labs from 07/16/24 We would at this time classify her as MARGO excellent response to therapy. Given MARGO excellent response to therapy TSH goal of 0.5-2. She is currently on levothyroxine 137 mcg 6.5 pills a week. Plan: -. Ordered TSH, free T4, to be done in 3-4 months given she is on Ozempic resulting in weight loss -TSH, free T4, TG and TG antibodies to be repeated prior to follow up in 1 year in July 2025 -ultrasound neck ordered for July 2025 -follow up in August 2025 (2) Hypothyroid: Code(s): E03.9 - Hypothyroidism, unspecified Category: Medical Qualifiers: Hypothyroidism type: postoperative Qualified Code(s): E89.0 - Postprocedural hypothyroidism Plan: Patient with postsurgical hypothyroidism, on 137 mcg levothyroxine 6 and a pills a week. She is taking it appropriately. Given MARGO excellent response to therapy TSH goal of 0.5-2. She is currently on levothyroxine 137 mcg 6.5 pills a week. Plan: -. Ordered TSH, free T4, to be done in 3-4 months given she is on Ozempic resulting in weight loss (3) History of primary hyperparathyroidism: Code(s): Z86.39 - Personal history of other endocrine, nutritional and metabolic disease Category: Medical Plan: She is S/P a 3 gland parathyroidectomy, but unfortunately labs did not meet curative criteria. Repeat labs are WNL. Repeat DXA Aug 2023 also WNL. She is officially cured of her hyperparathyroidism. Will recommend her PCP routinely monitor calcium levels. Most recent calcium levels from 2023 within normal limits. Can repeat a bone density scan in 2027. (4) Hurthle cell carcinoma: Code(s): C73 - Malignant neoplasm of thyroid gland Category: Medical Plan: See above Plan I spent 30 minutes in reviewing the record, seeing the patient and documenting in the medical record. Orders: Orders 2 Thyroid Stimulating Hormone 3 Months E89.0 - Postprocedural hypothyroidism, Z85.850 - Personal history of malignant neoplasm of thyroid Thyroglobulin Antibodies 11 Months E89.0 - Postprocedural hypothyroidism, Z85.850 - Personal history of malignant neoplasm of thyroid Thyroglobulin Tumor Marker 11 Months E89.0 - Postprocedural hypothyroidism, Z85.850 - Personal history of malignant neoplasm of thyroid Thyroid Stimulating Hormone 11 Months E89.0 - Postprocedural hypothyroidism, Z85.850 - Personal history of malignant neoplasm of thyroid Calcium 3 Months Z86.39 - Personal history of other endocrine, nutritional and metabolic disease Free T4 (Free Thyroxine) 3 Months E89.0 - Postprocedural hypothyroidism, Z85.850 - Personal history of malignant neoplasm of thyroid Thyroglobulin 11 Months E89.0 - Postprocedural hypothyroidism, Z85.850 - Personal history of malignant neoplasm of thyroid Free T4 (Free Thyroxine) 11 Months E89.0 - Postprocedural hypothyroidism, Z85.850 - Personal history of malignant neoplasm of thyroid US soft tiss head and/or neck 11 Months E89.0 - Postprocedural hypothyroidism, Z85.850 - Personal history of malignant neoplasm of thyroid Albumin Level 3 Months Z86.39 - Personal history of other endocrine, nutritional and metabolic disease Patient Instructions: Continue levothyroxine 137 mcg 6.5 pills a week Do labs in 3-4 months just TSHand free T4 Do blood work and Us neck in [id number] and follow with me Aug 2025 Coding Level of Care Code Est Pt Level 4 (27380) Complex EM visit Add On G2211 Diagnoses History of thyroid cancer Z85.850 Postoperative hypothyroidism E89.0 Hypothyroidism type: postoperative History of primary hyperparathyroidism Z86.39 Hurthle cell carcinoma C73 Time Spent (min) 30
== END 2024-09-03 13:26 | disposition home or self-care (01) ==
PROVIDERS: PCP Internal Medicine; Visit Provider Student in an Organized Health Care Education/Training Program
DX: Z85.850 Personal history of malignant neoplasm of thyroid (principal); E89.0 Postprocedural hypothyroidism; Z86.39 Personal history of other endocrine, nutritional and metabolic disease; C73 Malignant neoplasm of thyroid gland
CPT/HCPCS: 99214

== ENCOUNTER 2024-10-17 09:44 | Outpatient (AMB) | payer OTHER, SELFPAY ==
--- NOTE | 2024-10-17 09:47 | A.OFFPC_ITS ---
Vital Signs 10/17/24 09:48 Height 5 ft 8 in Weight 190 lb BMI 28.9 BP 116/80 Blood Pressure Location Lt brachial Position Sitting Pulse 79 Pulse Source Pulse Oximeter Temp 98.1 F Temp Source Oral Pulse Oximetry (%) 98 Oxygen Delivery Method Room Air Intake Visit Reasons: Annual Allergies hydromorphone [From DILAUDID] Adverse Reaction (Severe, Verified 10/17/24 09:48) PROJECTILE VOMITING Medication List - Last Reconciled 10/17/24 by Yvette Chopra MD atorvastatin 40 mg PO BEDTIME 90 days blood sugar diagnostic (Contour Next Test Strips) Check blood sugar four times a day As directed blood sugar diagnostic (FreeStyle Precision Papa Strips) once a day for calibration blood sugar diagnostic (OneTouch Verio test strips) 4x daily blood-glucose meter (Contour Next EZ Meter kit) As directed clobetasol 0.05% 1 appl topical BID PRN 30 days clotrimazole-betamethasone 1-0.05 % 1 appl topical ONCE 30 days Dexcom G7 Sensor (blood-glucose sensor) As directed, change every 10 days NS docusate sodium (Colace) 200 mg (2 x 100 mg) PO BEDTIME glipizide-metformin 5-500 mg 1 tab PO BID 90 days hydrochlorothiazide 25 mg PO QAM insulin glargine U-300 conc 28 units (0.0933 mL) subcut BEDTIME 90 days lancets As directed lancets (OneTouch Delica Plus Lancet) 4x daily lancets (Microlet Lancet) Check blood sugar four times daily As directed levothyroxine 137 mcg PO DAILY 90 days lisinopril 40 mg PO DAILY omeprazole 40 mg PO DAILY 90 days pen needle, diabetic (BD Gabriela 2nd Gen Pen Needle) daily semaglutide 1 mg (0.75 mL) subcut QWEEK 90 days valacyclovir 500 mg PO ONCE PRN 90 days venlafaxine ER 37.5 mg PO DAILY Tobacco use date assessed: 10/17/24 Dental Screening Dental Screen Date: 10/17/24 Did you have a dental visit in the last 12 months?: Yes Did you have a dental problem in the last 6 months where you did not have access to dental care?: No Was dental information given to patient?: Patient has dentist HPI Annual HPI Details Physcial exam apt The patient has developed ingrown toenail on the left foot that has become infected and requires evaluation. Patient is doing well other johnson Blood pressure is well-controlled patient is on lisinopril 40 mg and hydrochlorothiazide 25 mg Patient is diabetic and is taking long-acting insulin 16 units and glipizide metformin 5-500 b.i.d. along with Ozempic, dose is being increase to 2 mg today She was able to lose more wt since Jul of last year when seen BMI is now 28.9 Lipid disorder: Continue atorvastatin 40 mg Patient have a history of thyroid cancer, patient is seeing an oncologist at [facility] every [address] Alejandra She has started seeing Dr. Rincon as well at [facility] and both providers are collaborating her care anxiety and dep stable with Venlafaxine 37.5 she is also seeing [facility] Health Maintenance - Mammogram performed within the past ye ar. - Colonoscopy conducted last year, next due in 2028. - Scheduled laboratory work for Type 2 D iabetes Mellitus and regular follow-up with business development consultant. - need apt for Obgyn, patient would make that her self Medications - Atorvastatin 40 mg for hyperlipidemia - Glipizide 5 mg and Metformin 500 mg, t wice daily for type 2 diabetes mellitus - Insulin reduced to 16 units nightly fr om 28 units for diabetes management - Levothyroxine 137 mcg for hypothyroidi sm - Lisinopril 40 mg for hypertension - Hydrochlorothiazide 25 mg for hyperten beth - Omeprazole 40 mg for gastroesophageal reflux disease - Venlafaxine 37 mg for depression - Ozempic 2 mg Problem List - Ingrown toenail with infection - Type 2 Diabetes Mellitus - Hyperlipidemia - Hypertension - Hypothyroidism - Gastroesophageal Reflux Disease - Depression - Constipation Patient Instructions - Begin taking prescribed Augmentin for ingrown toenail infection. - Avoid self-treatment of the toenail; c onsult a rug cutter for persistent or recurrent issues. - Continue current medication regimen an d report any significant side effects. - Follow dietary and lifestyle changes f or weight management. - Schedule lab work in November before the follow-up with business development consultant. Review of Systems - Dermatological: Reports ingrown toenai l with infection. - Gastrointestinal: Reports chronic cons tipation. - Endocrine: Denies symptoms of diabetes complications such as hyperglycemia. - Musculoskeletal: Denies joint swelling . - Psychiatric: Denies changes or additio nal concerns, ongoing management of depression. - General: No fever no chills - Neurological: No headaches no dizzin ess - Ear nose throat: No sore throat no hearing difficulty no ear pain - Cardiovascular: No syncope, no chest pain, no palpitations - Genitourinary: No dysuria Physical Exam General: Cooperative, healthy appearing, comfortable, no acute distress Orientation: Patient oriented x3 Limitations: none Head: Normal to inspection Ears: Within normal limit visually Nose: Normal external nose present Face and sinus: Normal facial exam Eyes: Appearance normal, extraocular movement intact pupils reactive Neck: Normal visual inspection and supple Respiratory: Normal respiratory effort and able to speak in complete sentences. Clear to auscultation, no stridor Breast exam benign Cardiovascular: S1 and S2 GI: Normal to inspection. Soft to palpation and nontender Skin: Turgor normal, no acute findings Neuro: Patient oriented x3, motor sensory intact, balance intact, tandem pass Extremities: Ingrown toenail on the left side, infected, requires antibiotics PFSH Medical History Hypothyroid Recurrent thyroid cancer Incurved toenail Cervical lymphadenopathy Vitamin D deficiency History of thyroid cancer Diabetes type 2, uncontrolled Herpes labialis Lipid disorder Seborrheic dermatitis of scalp Psoriasis Hypertension, essential Headache syndrome Obesity (BMI 30-39.9) History of primary hyperparathyroidism Dyslipidemia Diabetes type 2, controlled Post-surgical hypothyroidism Primary thyroid cancer Surgical History History of esophagogastroduodenoscopy (EGD) Hx of colonoscopy History of back surgery History of partial hysterectomy Hx of thyroidectomy History of partial thyroidectomy Family History Father Diabetes Hypertension Mother Degenerative arthritis Hypertension Maternal Grandmother Colon cancer Other Substance use disorder Social History Household Members: Children Household Members Other:: single- Housing: House Are you a primary family day carer to a significant other at home: No Do you presently have visiting nurse or other home services: No Alcohol intake: never Patient Tobacco Use Status: Never used Tobacco e-Cigarette/Vaping Use: Never Used service: No Current occupational status: employed 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 1. Little interest or pleasure in doing things: not at all 2. Feeling down, depressed, or hopeless: not at all 3. Trouble falling or staying asleep, or sleeping too much: several days 4. Feeling tired or having little energy: not at all 5. Poor appetite or overeating: not at all 6. Feeling bad about yourself - or that you are a failure or have let yourself or your family down: not at all 7. Trouble concentrating on things, such as reading the newspaper or watching television: not at all 8. Moving or speaking so slowly that other people could have noticed. Or the opposite - being so fidgety or restless that you have been moving around a lot more than usual: not at all 9. Thoughts that you would be better off or of hurting yourself in some way: not at all Total score: 1 Depression Screening Interpretation: Negative Depression Screening Done: Yes 47421 - PHQ-9 Billing: Yes Source: Developed by Drs. Leonidas No, Akanksha Robin, Ej Hamilton and colleagues, with an educational everett from [employer]. Thrive Questionnaire Date Thrive assessed: 10/17/24 I am a: Patient What is your living situation today?: I have a steady place to live Within the past 12 months, did the food you bought not last and you didn't have the money to get more?: Never true Within the past 12 months, did you worry whether your food would run out before you got money to buy more?: Never true Do you have trouble paying for medicines?: No Do you have trouble getting transportation to medical appointments?: No Do you have trouble paying your heating and electricity bill?: No Do you have trouble taking care of your child, family member or friend?: No Do you have trouble with day-to-day activities such as bathing, preparing meals, shopping, managing finances, etc.?: No Are you currently unemployed and looking for a job?: No Are you interested in more education?: No Please select the resources that you would like help with: None Currently or been in a relationship where the following occur: No concerns reported THRIVE Score: 0 AUDIT C Alcohol Use Questionnaire (AUDIT-C) 1. How often do you have a drink containing alcohol?: Never 3. How often do you have six or more drinks on one occasion?: Never Total Score: 0 Score Reviewed/Action Taken: Yes GEE-7 AMB Questionnaire GEE-7 Date GEE - 7 assessed: 10/17/24 Feeling nervous, anxious, or on edge: 0 = Not at all Not being able to stop or control worryin = Not at all Worrying too much about different things: 0 = Not at all Trouble relaxin = Not at all Being so restless that it is hard to sit still: 0 = Not at all Becoming easily annoyed or irritable: 0 = Not at all Source: Developed by Drs. Leonidas No, Akanksha Robin, Ej Hamilton and colleagues, with an educational everett from [employer]. GEE-7 Assessment Billing GEE-7 Assessment Tool: GEE-7 Assessment 71226 Physical exam (Primary Care) Vital Signs: Last Vital Signs Temp 98.1 F 10/17/24 09:48 Pulse 79 10/17/24 09:48 BP 116/80 10/17/24 09:48 Pulse Ox 98 10/17/24 09:48 Oxygen Delivery Method Room Air 10/17/24 09:48 BMI result Body Mass Index 28.9 Tobacco/Smoking Status: Tobacco use Status Tobacco use date assessed 10/17/24 10/17/24 09:53 Patient Tobacco Use Status Never used Tobacco 10/17/24 09:53 e-Cigarette/Vaping Use Never Used 10/17/24 09:53 PHQ-9: PHQ-9 Score PHQ-9: Total score 1 10/17/24 10:07 Depression Screening Interpretation: Negative Thrive Assessment: Date of Thrive Assessment Date Thrive assessed 10/17/24 10/17/24 09:53 Currently or been in a relationship where the following occur: No concerns reported Coding Level of Care Code Est Pt Level 4 (50618) Est Pt Prev Care 40-64y(96903) Diagnoses Encounter for general adult medical examination with abnormal findings Z00.01 Ingrown nail of great toe of left foot L60.0 Controlled type 2 diabetes mellitus with diabetic neuropathy, with long-term current use of insulin E11.40; Z79.4 Diabetes mellitus termite technician insulin use: with termite technician use Diabetes mellitus complication status: with neurologic complications Diabetes mellitus complication detail: with unspecified neuropathy Headache syndrome G44.89 Lipid disorder E78.9 Post-surgical hypothyroidism E89.0 Class 1 obesity due to excess calories with serious comorbidity and body mass index (BMI) of 31.0 to 31.9 in adult E66.09; Z68.31 Obesity classification: adult class 1 (BMI 30 - 34.9) Serious obesity comorbidity presence: with serious comorbidity Body mass index: BMI 31.0-31.9 terminal carman (current) use of insulin Z79.4 Additional Codes GEE-7 Assessment Billing - GEE-7 Assessment Tool: GEE-7 Assessment 72519 ([id number]) PHQ-9 - 72295 - PHQ-9 Billing: Yes ([id number]) Assessment & Plan Assessment & Plan (1) Encounter for general adult medical examination with abnormal findings: Code(s): Z00.01 - Encounter for general adult medical examination with abnormal findings Category: Medical (2) Ingrown nail of great toe of left foot: Code(s): L60.0 - Ingrowing nail Category: Medical (3) Diabetes type 2, controlled: Code(s): E11.9 - Type 2 diabetes mellitus without complications Category: Medical Qualifiers: Diabetes mellitus snf insulin use: with snf use Diabetes mellitus complication status: with neurologic complications Diabetes mellitus complication detail: with unspecified neuropathy Qualified Code(s): E11.40 - Type 2 diabetes mellitus with diabetic neuropathy, unspecified; Z79.4 - USP (current) use of insulin (4) Headache syndrome: Code(s): G44.89 - Other headache syndrome Category: Medical (5) Lipid disorder: Code(s): E78.9 - Disorder of lipoprotein metabolism, unspecified Category: Medical (6) Post-surgical hypothyroidism: Code(s): E89.0 - Postprocedural hypothyroidism Category: Medical (7) Obesity due to excess calories: Code(s): E66.09 - Other obesity due to excess calories Category: Medical Qualifiers: Obesity classification: adult class 1 (BMI 30 - 34.9) Serious obesity comorbidity presence: with serious comorbidity Body mass index: BMI 31.0-31.9 Qualified Code(s): E66.09 - Other obesity due to excess calories; Z68.31 - Body mass index [BMI] 31.0-31.9, adult (8) terminal carman (current) use of insulin: Code(s): Z79.4 - terminal carman (current) use of insulin Category: Medical Plan Physcial exam apt The patient has developed ingrown toenail on the left foot that has become infected and requires evaluation. Patient is doing well other johnson Blood pressure is well-controlled patient is on lisinopril 40 mg and hydrochlorothiazide 25 mg Patient is diabetic and is taking long-acting insulin 16 units and glipizide metformin 5-500 b.i.d. along with Ozempic, dose is being increase to 2 mg today She was able to lose more wt since Jul of last year when seen BMI is now 28.9 Lipid disorder: Continue atorvastatin 40 mg Patient have a history of thyroid cancer, patient is seeing an oncologist at [facility] every [address] Alejandra She has started seeing Dr. Rincon as well at [facility] and both providers are collaborating her care anxiety and dep stable with Venlafaxine 37.5 she is also seeing [facility] Health Maintenance - Mammogram performed within the past year. - Colonoscopy conducted last year, next due in 2028. - Scheduled laboratory work for Type 2 Diabetes Mellitus and regular follow-up with business development consultant. - need apt for Obgyn, patient would make that her self Medications - Atorvastatin 40 mg for hyperlipidemia - Glipizide 5 mg and Metformin 500 mg, twice daily for type 2 diabetes mellitus - Insulin reduced to 16 units nightly from 28 units for diabetes management - Levothyroxine 137 mcg for hypothyroidism - Lisinopril 40 mg for hypertension - Hydrochlorothiazide 25 mg for hypertension - Omeprazole 40 mg for gastroesophageal reflux disease - Venlafaxine 37 mg for depression - Ozempic 2 mg Problem List - Ingrown toenail with infection - Type 2 Diabetes Mellitus - Hyperlipidemia - Hypertension - Hypothyroidism - Gastroesophageal Reflux Disease - Depression - Constipation Patient Instructions - Begin taking prescribed Augmentin for ingrown toenail infection. - Avoid self-treatment of the toenail; consult a rug cutter for persistent or recurrent issues. - Continue current medication regimen and report any significant side effects. - Follow dietary and lifestyle changes for weight management. - Schedule lab work in November before the follow-up with business development consultant. Orders: Referrals Podiatry Referral L60.0 - Ingrowing nail Medications: New amoxicillin-pot clavulanate 875-125 mg 1 tab PO BID 7 days 14 tabs 0RF Changed From semaglutide for 4 weeks 1 mg (0.75 mL) subcut QWEEK 90 days 9.75 mL 0RF To semaglutide for 4 weeks 2 mg (0.75 mL) subcut QWEEK 90 days 9.75 mL 0RF From insulin glargine U-300 conc 28 units (0.0933 mL) subcut BEDTIME 90 days 8.397 mL 1RF To insulin glargine U-300 conc 16 units (0.0533 mL) subcut BEDTIME 90 days 4.797 mL 0RF
[2024-10-17 09:48] VITALS: BP 116/80; PULSE 79; TEMP 36.7; O2SAT 98; BMI 28.9
== END 2024-10-17 10:17 | disposition home or self-care (01) ==
PROVIDERS: PCP Internal Medicine; Visit Provider Internal Medicine
DX: Z00.00 Encounter for general adult medical examination without abnormal findings (principal); E11.40 Type 2 diabetes mellitus with diabetic neuropathy, unspecified; E66.09 Other obesity due to excess calories; Z68.31 Body mass index [BMI] 31.0-31.9, adult; Z79.4 Long term (current) use of insulin; L60.0 Ingrowing nail; G44.89 Other headache syndrome; E78.9 Disorder of lipoprotein metabolism, unspecified; E89.0 Postprocedural hypothyroidism

== ENCOUNTER → 2024-10-17 09:44 | Outpatient (BNVA) | payer OTHER, SELFPAY | PROVIDERS: PCP Internal Medicine; Visit Provider Internal Medicine | DX: Z00.01 Encounter for general adult medical examination with abnormal findings (principal); L60.0 Ingrowing nail; E11.40 Type 2 diabetes mellitus with diabetic neuropathy, unspecified; G44.89 Other headache syndrome; E78.9 Disorder of lipoprotein metabolism, unspecified; E89.0 Postprocedural hypothyroidism; E66.09 Other obesity due to excess calories; Z68.31 Body mass index [BMI] 31.0-31.9, adult; Z79.4 Long term (current) use of insulin | CPT/HCPCS: 96127 ==

== ENCOUNTER 2024-12-11 09:26 | Outpatient (REF) | payer OTHER, SELFPAY ==
--- NOTE | ~2024-12-11 | MM_ITS ---
EXAMINATION: MM SCREENING DIGITAL BREAST TOMOSYNTHESIS, BILATERAL CLINICAL INFORMATION: Screening. Asymptomatic. COMPARISON: Mammography: Comparison is made with available priors TECHNIQUE: Digital breast mammography with tomosynthesis is performed in both the craniocaudal and mediolateral oblique views along with computer-aided detection (CAD). FINDINGS: There are scattered areas of fibroglandular density (ACR BI-RADS breast composition Category b). Bilateral reduction mammoplasty. There are no significant masses, abnormal calcifications, or other abnormalities. MM/MM tomosynthesis screening BI IMPRESSION: No mammographic evidence of malignancy. ASSESSMENT: BI-RADS BI-RADS 2 - Benign Findings RECOMMENDATION: Routine annual mammography screening. 1 year F/U This examination should not preclude the clinical evaluation of a suspicious palpable abnormality. This patient's information was entered into a reminder system with a target due date for their next mammogram. Electronically signed by: Char White DO 12/11/2024 09:54 AM EDT
== END 2024-12-11 09:27 | disposition home or self-care (01) ==
LOC: HO.MAMMO 09:26
PROVIDERS: PCP Internal Medicine; Visit Provider Internal Medicine
DX: Z12.31 Encounter for screening mammogram for malignant neoplasm of breast (principal)
CPT/HCPCS: 77063; 77067

== ENCOUNTER → 2024-12-11 09:45 | Outpatient (BNV) | payer OTHER, SELFPAY | PROVIDERS: PCP Internal Medicine; Visit Provider Internal Medicine | DX: Z12.31 Encounter for screening mammogram for malignant neoplasm of breast (principal) | CPT/HCPCS: 77063; 77067 ==

== ENCOUNTER 2024-12-14 06:48 | Outpatient (REF) | payer OTHER, SELFPAY ==
[2024-12-14 08:30] LABS: Albumin Level 4.4 g/dL (3.5-5.0); Calcium 9.7 mg/dL (8.4-10.2)
[2024-12-14 08:38] LABS: Free T4 (Free Thyroxine) 1.36 ng/dL (0.71-1.85); Thyroid Stimulating Hormone 0.09 uIU/mL (0.32-4.0)
== END 2024-12-14 06:49 | disposition home or self-care (01) ==
LOC: HO.LAB 06:48
PROVIDERS: PCP Internal Medicine; Visit Provider Student in an Organized Health Care Education/Training Program
DX: E89.0 Postprocedural hypothyroidism (principal); Z85.850 Personal history of malignant neoplasm of thyroid; Z86.39 Personal history of other endocrine, nutritional and metabolic disease
CPT/HCPCS: 36415; 82040; 82310; 84439; 84443

== ENCOUNTER 2025-02-13 08:52 | Outpatient (REF) | payer OTHER, SELFPAY ==
[2025-02-13 10:06] LABS: MANUAL DIFF FLAG NO
[2025-02-13 10:18] LABS: Basophils Percent Auto 0.7 % (0-2); Hematocrit 39.7 % (37.0-47.0); Hemoglobin 13.6 g/dl (12.0-16.0); Imm Gran Abs Auto 0.01 X10*3/uL (0.00-0.03); Imm Gran Pct Auto 0.2 % (0.0-0.4); Lymphocytes Absolute Auto 1.9 X10*3/uL (1.2-4.9); Lymphocytes Percent Auto 35.3 % (20-40); Mean Corpuscular HGB Conc 34.3 g/dl (31.0-35.0); Mean Corpuscular Hemoglobin 29.3 pg (27.0-33.0); Mean Corpuscular Volume 85.6 fL (80.0-98.0); Mean Platelet Volume 8.7 fL (9.4-12.3); Monocytes Absolute Auto 0.4 X10*3/uL (0.1-1.2); Monocytes Percent Auto 7.3 % (2-11); Neutrophils Absolute Auto 3.1 x10*3/uL (2.0-8.3); Neutrophils Percent Auto 56.5 % (45-73); Platelet Count 398 X10*3/uL (160-400); Red Blood Count 4.64 X10*6/uL (4.20-5.50); Red Cell Distribution Width 12.7 % (11.0-16.0); White Blood Count 5.5 X10*3/uL (4.8-10.8)
[2025-02-13 10:38] LABS: Estimated Average Glucose 114 mg/dL; Hemoglobin A1C 135.5254 umol/L; Hemoglobin A1c % 5.6 % (<6.0)
[2025-02-13 11:22] LABS: Alanine Aminotransferase 29 U/L (0-31); Albumin Level 4.3 g/dL (3.5-5.0); Anion Gap 11 (12-20); Aspartate Amino Transferase 30 U/L (5-31); Bilirubin Total 0.5 mg/dL (0.0-1.0); Blood Urea Nitrogen 15 mg/dL (9-16); Calcium 9.6 mg/dL (8.4-10.2); Carbon Dioxide 28 mmol/L (22-29); Chloride 105 mmol/L (96-108); Cholesterol 165 mg/dL (<200); Estimated Glomerular Filt Rate > 60; Glucose Fasting 91 mg/dL (60-99); HDL Cholesterol 41 mg/dL (>40); LDL Cholesterol Calculated 106 mg/dL (<100); Lipase 45 U/L (8-78); Potassium 3.8 mmol/L (3.3-5.1); Sodium 140 mmol/L (135-145); Triglycerides 91 mg/dL (<150)
[2025-02-13 11:40] LABS: TSH reflex Free T4 0.05 uIU/mL (0.32-4.0)
[2025-02-13 13:10] LABS: Alkaline Phosphatase 57 U/L (39-117); Amylase 46 U/L (28-100)
[2025-02-13 13:28] LABS: Free T4 (Free Thyroxine) 1.31 ng/dL (0.71-1.85)
== END 2025-02-13 08:53 | disposition home or self-care (01) ==
LOC: HO.HMGCLDS 08:52
PROVIDERS: PCP Internal Medicine; Visit Provider Internal Medicine
DX: G44.89 Other headache syndrome (principal); I10 Essential (primary) hypertension; E78.9 Disorder of lipoprotein metabolism, unspecified; B00.1 Herpesviral vesicular dermatitis; Z79.4 Long term (current) use of insulin; E11.9 Type 2 diabetes mellitus without complications
CPT/HCPCS: 36415; 80053; 80061; 82150; 83036; 83690; 84439; 84443; 85025

== ENCOUNTER 2025-02-13 08:52 | Outpatient (AMB) | payer OTHER, SELFPAY ==
--- NOTE | 2025-02-13 08:55 | A.OFFPC_ITS ---
Vital Signs 02/13/25 08:58 Height 5 ft 8 in Weight 180 lb 8 oz BMI 27.4 BP 118/78 Blood Pressure Location Rt brachial Position Sitting Respiration 17 Pulse 77 Pulse Source Pulse Oximeter Temp 98.1 F Temp Source Oral Pulse Oximetry (%) 99 Oxygen Delivery Method Room Air Intake Visit Reasons: 4 month follow up Allergies hydromorphone [From DILAUDID] Adverse Reaction (Severe, Verified 02/13/25 08:59) PROJECTILE VOMITING Medication List - Last Reconciled 02/13/25 by Yvette Chopra MD atorvastatin 40 mg PO BEDTIME 90 days blood sugar diagnostic (FreeStyle Precision Papa Strips) once a day for calibration blood sugar diagnostic (OneTouch Verio test strips) 4x daily blood sugar diagnostic (Contour Next Test Strips) Check blood sugar four times a day As directed blood-glucose meter (Contour Next EZ Meter kit) As directed clobetasol 0.05% 1 appl topical BID PRN 30 days clotrimazole-betamethasone 1-0.05 % 1 appl topical ONCE 30 days Dexcom G7 Sensor (blood-glucose sensor) As directed, change every 10 days NS docusate sodium (Colace) 200 mg (2 x 100 mg) PO BEDTIME glipizide-metformin 5-500 mg 1 tab PO BID 90 days hydrochlorothiazide 25 mg PO QAM insulin glargine U-300 conc 16 units (0.0533 mL) subcut BEDTIME 90 days lancets As directed lancets (OneTouch Delica Plus Lancet) 4x daily lancets (Microlet Lancet) Check blood sugar four times daily As directed levothyroxine 125 mcg PO DAILY lisinopril 40 mg PO DAILY omeprazole 40 mg PO DAILY 90 days pen needle, diabetic (BD Gabriela 2nd Gen Pen Needle) daily semaglutide 2 mg (1.5 mL) subcut QWEEK 90 days valacyclovir 500 mg PO ONCE PRN 90 days venlafaxine ER 37.5 mg PO DAILY Tobacco use date assessed: 02/13/25 Dental Screening Dental Screen Date: 02/13/25 Did you have a dental visit in the last 12 months?: Yes Did you have a dental problem in the last 6 months where you did not have access to dental care?: No Was dental information given to patient?: Patient has dentist HPI 4 month follow up HPI Details History - The patient is a 54-year-old female pr esenting with a four-month follow-up. - Obesity: The patient reported a slight weight increase after having previously lost weight to 176 lbs. She now weighs approximately 180 lbs. Expressed feeling of having hit a plateau with weight management. - Type 2 Diabetes Mellitus: The patient reports taking insulin (16 units), metformin, and monitoring glucose through Dexacom. - Hypertension: Patient is on hydrochlor othiazide and lisinopril for blood pressure management. No new concerns reported. - Hyperlipidemia: The patient is continu ing with atorvastatin for cholesterol management. No new concerns reported. - Hypothyroidism: Patient had a low TSH in December, prompting a reduction in the dose of levothyroxine. Requires monitoring. - Gastroesophageal Reflux Disease (GERD) : Patient is on omeprazole, reports no new concerns. - Depression: Managed with venlafaxine a t a small dose. Helps with hot flashes. - Hemorrhoids: Present, but no new issue s mentioned during the visit. - Ingrown Toenail: Previously attempted self-care led to infection. Requires professional evaluation. - Constipation: Manages with Senna. Medical History: - Obesity - Type 2 Diabetes Mellitus - Hypertension - Hyperlipidemia - Hypothyroidism - Gastroesophageal Reflux Disease (GERD) - Depression - Hemorrhoids - Ingrown Toenail - Constipation Social History: - Reports recent challenges with weight management, feeling hunger, and plateau in weight loss. Medications - Atorvastatin 40 mg for hyperlipidemia. - Metformin 5-500 mg, 1 tablet twice jose manuel ly for Type 2 Diabetes Mellitus. - Hydrochlorothiazide for hypertension. - Insulin, 16 units for Type 2 Diabetes Mellitus. - Levothyroxine 125 mcg for hypothyroidi sm. - Lisinopril 40 mg for hypertension. - Omeprazole 40 mg for GERD. - Semaglutide 2 mg for obesity weight ma nagement, - Venlafaxine for depression and managem ent of hot flashes. Problem List - Obesity - Type 2 Diabetes Mellitus - Hypertension - Hyperlipidemia - Hypothyroidism - Gastroesophageal Reflux Disease (GERD) - Depression - Hemorrhoids - Ingrown Toenail - Constipation Diagnostic results - Labs: - CBC conducted in July: Nor mal - TSH conducted in December: Low Patient Instructions - Obtain fasting labs to check thyroid, cholesterol, metabolic profile, and A1c. - Contact the podiatry office next week to confirm diabetic foot exam and assessment for ingrown toenails. - Monitor diet and blood sugar closely, adjust insulin as weight changes. - Call with any concerns or further ques tions. Review of Systems General: No fever no chills neurological: No headaches no dizziness ear nose throat: No sore throat no hearing difficulty no ear pain cardiovascular: No syncope, no chest pain, no palpitations gastrointestinal: No nausea vomiting or diarrhea endocrine: No polyuria polydipsia no heat intolerance genitourinary: No dysuria skin: No new complaints Physical Exam general: No acute distress HEENT: No acute findings neck: Supple respiratory system: Able to talk in full sentences, no audible wheeze no stridor cardiovascular: S1-S2 RRR gastrointestinal: No pain extremities: No new findings INHALATION THERAPY AIDE: Alert awake oriented x3 motor sensory intact skin: Normal turgor PFSH Medical History Hypothyroid Recurrent thyroid cancer Incurved toenail Cervical lymphadenopathy Vitamin D deficiency History of thyroid cancer Diabetes type 2, uncontrolled Herpes labialis Lipid disorder Seborrheic dermatitis of scalp Psoriasis Hypertension, essential Headache syndrome Obesity (BMI 30-39.9) History of primary hyperparathyroidism Dyslipidemia Diabetes type 2, controlled Post-surgical hypothyroidism Primary thyroid cancer Surgical History History of esophagogastroduodenoscopy (EGD) Hx of colonoscopy History of back surgery History of partial hysterectomy Hx of thyroidectomy History of partial thyroidectomy Family History Father Diabetes Hypertension Mother Degenerative arthritis Hypertension Maternal Grandmother Colon cancer Other Substance use disorder Social History Household Members: Children Household Members Other:: single- Housing: House Are you a primary care clinician to a significant other at home: No Do you presently have visiting nurse or other home services: No Alcohol intake: never Patient Tobacco Use Status: Never used Tobacco e-Cigarette/Vaping Use: Never Used service: No Current occupational status: employed 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 Hearing needs: No Vision needs: Yes (contacts) Questionnaire Thrive Questionnaire Date Thrive assessed: 02/13/25 I am a: Patient What is your living situation today?: I have a steady place to live Within the past 12 months, did the food you bought not last and you didn't have the money to get more?: Never true Within the past 12 months, did you worry whether your food would run out before you got money to buy more?: Never true Do you have trouble paying for medicines?: No Do you have trouble getting transportation to medical appointments?: No Do you have trouble paying your heating and electricity bill?: No Do you have trouble taking care of your child, family member or friend?: No Do you have trouble with day-to-day activities such as bathing, preparing meals, shopping, managing finances, etc.?: No Are you currently unemployed and looking for a job?: No Are you interested in more education?: No Please select the resources that you would like help with: None Currently or been in a relationship where the following occur: No concerns reported THRIVE Score: 0 AUDIT C Alcohol Use Questionnaire (AUDIT-C) 1. How often do you have a drink containing alcohol?: Never 3. How often do you have six or more drinks on one occasion?: Never Total Score: 0 Score Reviewed/Action Taken: Yes GEE-7 AMB Questionnaire GEE-7 Date GEE - 7 assessed: 10/17/24 Source: Developed by Drs. Leonidas No, Akanksha Robin, Ej Hamilton and colleagues, with an educational everett from [employer] Physical exam (Primary Care) Vital Signs: Last Vital Signs Temp 98.1 F 02/13/25 08:58 Pulse 77 02/13/25 08:58 Resp 17 02/13/25 08:58 BP 118/78 02/13/25 08:58 Pulse Ox 99 02/13/25 08:58 Oxygen Delivery Method Room Air 02/13/25 08:58 BMI result Body Mass Index 27.4 Tobacco/Smoking Status: Tobacco use Status Tobacco use date assessed 02/13/25 02/13/25 09:01 Patient Tobacco Use Status Never used Tobacco 02/13/25 08:56 e-Cigarette/Vaping Use Never Used 02/13/25 08:56 Thrive Assessment: Date of Thrive Assessment Date Thrive assessed 02/13/25 02/13/25 09:01 Currently or been in a relationship where the following occur: No concerns reported Coding Level of Care Code Est Pt Level 4 (11287) Diagnoses Insulin dependent type 2 diabetes mellitus E11.9; Z79.4 Hypertension, essential I10 Headache syndrome G44.89 Lipid disorder E78.9 Herpes labialis B00.1 senior living (current) use of insulin Z79.4 Assessment & Plan Assessment & Plan (1) Insulin dependent type 2 diabetes mellitus: Code(s): E11.9 - Type 2 diabetes mellitus without complications; Z79.4 - terminal computer operator (current) use of insulin Category: Medical (2) Hypertension, essential: Code(s): I10 - Essential (primary) hypertension Category: Medical (3) Headache syndrome: Code(s): G44.89 - Other headache syndrome Category: Medical (4) Lipid disorder: Code(s): E78.9 - Disorder of lipoprotein metabolism, unspecified Category: Medical (5) Herpes labialis: Code(s): B00.1 - Herpesviral vesicular dermatitis Category: Medical (6) senior living (current) use of insulin: Code(s): Z79.4 - terminal computer operator (current) use of insulin Category: Medical Plan History - The patient is a 54-year-old female presenting with a four-month follow-up. - Obesity: The patient reported a slight weight increase after having previously lost weight to 176 lbs. She now weighs approximately 180 lbs. Expressed feeling of having hit a plateau with weight management. - Type 2 Diabetes Mellitus: The patient reports taking insulin (16 units), metformin, and monitoring glucose through Dexacom. - Hypertension: Patient is on hydrochlorothiazide and lisinopril for blood pressure management. No new concerns reported. - Hyperlipidemia: The patient is continuing with atorvastatin for cholesterol management. No new concerns reported. - Hypothyroidism: Patient had a low TSH in December, prompting a reduction in the dose of levothyroxine. Requires monitoring. - Gastroesophageal Reflux Disease (GERD): Patient is on omeprazole, reports no new concerns. - Depression: Managed with venlafaxine at a small dose. Helps with hot flashes. - Hemorrhoids: Present, but no new issues mentioned during the visit. - Ingrown Toenail: Previously attempted self-care led to infection. Requires professional evaluation. - Constipation: Manages with Senna. Medical History: - Obesity - Type 2 Diabetes Mellitus - Hypertension - Hyperlipidemia - Hypothyroidism - Gastroesophageal Reflux Disease (GERD) - Depression - Hemorrhoids - Ingrown Toenail - Constipation Social History: - Reports recent challenges with weight management, feeling hunger, and plateau in weight loss. Medications - Atorvastatin 40 mg for hyperlipidemia. - Metformin 5-500 mg, 1 tablet twice daily for Type 2 Diabetes Mellitus. - Hydrochlorothiazide for hypertension. - Insulin, 16 units for Type 2 Diabetes Mellitus. - Levothyroxine 125 mcg for hypothyroidism. - Lisinopril 40 mg for hypertension. - Omeprazole 40 mg for GERD. - Semaglutide 2 mg for obesity weight management, - Venlafaxine for depression and management of hot flashes. Problem List - Obesity - Type 2 Diabetes Mellitus - Hypertension - Hyperlipidemia - Hypothyroidism - Gastroesophageal Reflux Disease (GERD) - Depression - Hemorrhoids - Ingrown Toenail - Constipation Diagnostic results - Labs: - CBC conducted in July: Normal - TSH conducted in December: Low Patient Instructions - Obtain fasting labs to check thyroid, cholesterol, metabolic profile, and A1c. - Contact the podiatry office next week to confirm diabetic foot exam and assessment for ingrown toenails. - Monitor diet and blood sugar closely, adjust insulin as weight changes. - Call with any concerns or further questions. Orders: Orders Comprehensive [place]. Panel Fast Today B00.1 - Herpesviral vesicular dermatitis, E11.9 - Type 2 diabetes mellitus without complications, E78.9 - Disorder of lipoprotein metabolism, unspecified, G44.89 - Other headache syndrome, I10 - Essential (primary) hypertension, Z79.4 - senior living (current) use of insulin Lipid Panel Today B00.1 - Herpesviral vesicular dermatitis, E11.9 - Type 2 diabetes mellitus without complications, E78.9 - Disorder of lipoprotein meta bolism, unspecified, G44.89 - Other headache syndrome, I10 - Essential (primary) hypertension, Z79.4 - terminal computer operator (current) use of insulin Lipase Today B00.1 - Herpesviral vesicular dermatitis, E11.9 - Type 2 diabetes mellitus without complications, E78.9 - Disorder of lipoprotein metabolism, unspecified, G44.89 - Other headache syndrome, I10 - Essential (primary) hyperte nsion, Z79.4 - senior living (current) use of insulin Complete Blood Count Auto Diff Today B00.1 - Herpesviral vesicular dermatitis, E11.9 - Type 2 diabetes mellitus without complications, E78.9 - Disorder of lipoprotein metabolism, unspecified, G44.89 - Other headache syndrome, I10 - Essential (primary) hypertension, Z79.4 - terminal computer operator (current) use of insulin TSH reflex Free T4 Today B00.1 - Herpesviral vesicular dermatitis, E11.9 - Type 2 diabetes mellitus without complications, E78.9 - Disorder of lipoprotein metabolism, unspecified, G44.89 - Other headache syndrome, I10 - Essential (primary) hypertension, Z79.4 - terminal computer operator (current) use of insulin Hemoglobin A1c Today B00.1 - Herpesviral vesicular dermatitis, E11.9 - Type 2 diabetes mellitus without complications, E78.9 - Disorder of lipoprotein metabolism, unspecified, G44.89 - Other headache syndrome, I10 - Essential (primary) hypertension, Z79.4 - terminal computer operator (current) use of insulin Amylase Today B00.1 - Herpesviral vesicular dermatitis, E11.9 - Type 2 diabetes mellitus without complications, E78.9 - Disorder of lipoprotein metabolism, unspecified, G44.89 - Other headache syndrome, I10 - Essential (primary) hypertension, Z79.4 - terminal computer operator (current) use of insulin Medications: Changed From semaglutide for 4 weeks 2 mg (0.75 mL) subcut QWEEK 90 days 9.75 mL 2RF To semaglutide for 4 weeks 2 mg (1.5 mL) subcut QWEEK 90 days 19.5 mL 2RF Refilled hydrochlorothiazide 25 mg PO QAM 90 tabs 0RF
[2025-02-13 08:58] VITALS: BP 118/78; PULSE 77; RESP 17; TEMP 36.7; O2SAT 99; BMI 27.4
== END 2025-02-13 09:13 | disposition home or self-care (01) ==
LOC: HO.HMCC 08:53
PROVIDERS: PCP Internal Medicine; Visit Provider Internal Medicine
DX: E11.9 Type 2 diabetes mellitus without complications (principal); Z79.4 Long term (current) use of insulin; I10 Essential (primary) hypertension; G44.89 Other headache syndrome; E78.9 Disorder of lipoprotein metabolism, unspecified; B00.1 Herpesviral vesicular dermatitis

== ENCOUNTER 2025-06-19 09:07 | Outpatient (AMB) | payer OTHER, SELFPAY ==
[2025-06-19 09:09] VITALS: BP 120/72; PULSE 88; O2SAT 97; BMI 28.4
--- NOTE | 2025-06-19 09:09 | A.OFFPC_ITS ---
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 Detective Required: No Accompanied by: Self / Same As Patient Allergies hydromorphone (From DILAUDID) Adverse Reaction (Severe, Verified 06/19/25 09:10) PROJECTILE VOMITING Medication List - Last Reconciled 06/19/25 by Yvette Chopra MD atorvastatin 40 mg PO BEDTIME 90 days blood sugar diagnostic (FreeStyle Precision Papa Strips) once a day for calibration blood sugar diagnostic (OneTouch Verio test strips) 4x daily blood sugar diagnostic (Contour Next Test Strips) Check blood sugar four times a day As directed blood-glucose meter (Contour Next EZ Meter kit) As directed clobetasol 0.05% 1 appl topical BID PRN 30 days clotrimazole-betamethasone 1-0.05 % 1 appl topical ONCE 30 days Dexcom G7 Sensor (blood-glucose sensor) As directed, change every 10 days NS docusate sodium (Colace) 200 mg (2 x 100 mg) PO BEDTIME glipizide-metformin 5-500 mg 1 tab PO BID 90 days hydrochlorothiazide 25 mg PO QAM insulin glargine U-300 conc 16 units (0.0533 mL) subcut BEDTIME 90 days lancets As directed lancets (OneTouch Delica Plus Lancet) 4x daily lancets (Microlet Lancet) Check blood sugar four times daily As directed levothyroxine 112 mcg PO DAILY lisinopril 40 mg PO DAILY omeprazole 40 mg PO DAILY 90 days pen needle, diabetic daily semaglutide (Ozempic) mg subcut terbinafine HCl 250 mg PO DAILY valacyclovir 500 mg PO ONCE PRN 90 days venlafaxine ER 37.5 mg PO DAILY Tobacco use date assessed: 02/13/25 Dental Screening Dental Screen Date: 02/13/25 HPI 4m follow up HPI Details History The patient is a 54-year-old female presenting with management and evaluation of type 2 diabetes, hypertension, hyperlipidemia, hypothyroidism, and weight management. Type 2 Diabetes Mellitus: - The patient is diabetic and manages he r condition with insulin (16 units) and metformin. - Reports going off the rails with t, resulting in low blood sugar episodes and compensatory eating. - This altered dietary behavior has led to weight gain. - A1c was recorded at 5.6 during the las t test in February, indicating good control. - Reports difficulty in losing weight de spite efforts. Hypertension: - Hypertension is being controlled with hydrochlorothiazide and lisinopril. - The patient reports normal blood press ure levels. Hyperlipidemia: - The patient is on atorvastatin for lip id control. - LDL was 106 in the last assessment. Hypothyroidism: - The patient is on levothyroxine for hy pothyroidism. - TSH level was 0.05, with recent dose a djustment in February. - A repeat test for thyroid function is planned, as diminished control was noted. Body Weight and Obesity Management: - The patient is on semaglutide for obes ity management. - Reports an increase in weight since , from 180.8 lbs to 187 lbs. - BMI is noted to be 28.5 today. - Consumes a less disciplined diet due t o hypoglycemic episodes, leading to weight gain. Gastroesophageal Reflux Disease (GERD): - Managed with omeprazole. Depression: - Managed with meloxetine. Recent surgical intervention for ingrown toenails: - Partial nail removal was performed rec ently on both sides of both big toes. - Post-operative tenderness noted, but n o procedural pain reported. Medical History: - Type 2 Diabetes Mellitus, treated with insulin and metformin. - Hypertension, managed with hydrochloro thiazide and lisinopril. - Hyperlipidemia, treated with atorvasta tin. - Hypothyroidism, managed with levothyro xine. - Gastroesophageal Reflux Disease (GERD) , treated with omeprazole. - Depression, managed with meloxetine. - History of hemorrhoids, currently stab le. - History of constipation. - obesity management with semaglutide, BMI recorded as 28.5. Problem List - Type 2 Diabetes Mellitus - Essential Hypertension - Hyperlipidemia - Hypothyroidism - Obesity - Gastroesophageal Reflux Disease (GERD) - Depression - Ingrown toenails Diagnostic results - Labs: - Hemoglobin A1c: 5.6 (February) - LDL: 106 - TSH: 0.05 - CBC within normal limits - Electrolytes within normal limits - Kidney function tests: normal - Liver enzymes: within normal limits Plan - Continue current regimen of insulin an d metformin for diabetes. - Initiate glipizide therapy with one ta blet and monitor glucose levels; discontinue if hypoglycemia persists. - Repeat thyroid function tests due to a ltered TSH and adjust levothyroxine as needed. - Monitor blood pressure and adjust anti hypertensive medications as weight loss progresses. - Maintain atorvastatin for lipid contro l. - Continue semaglutide for weight manage ment, encourage healthier dietary habits. - Evaluate kidney function periodically. - Manage GERD with continuing omeprazole . - Address depression by continuing melox etine. - Advise on footwear and post-operative care for toenail surgery to reduce tenderness. Review of Systems General: No fever no chills neurological: No headaches no dizziness ear nose throat: No sore throat no hearing difficulty no ear pain cardiovascular: No syncope, no chest pain, no palpitations gastrointestinal: No nausea vomiting or diarrhea endocrine: No polyuria polydipsia no heat intolerance genitourinary: No dysuria skin: No new complaints Physical Exam general: No acute distress HEENT: No acute findings neck: Supple respiratory system: Able to talk in full sentences, no audible wheeze no stridor cardiovascular: S1-S2 RRR gastrointestinal: No pain extremities: Tenderness noted on both big toes, sides of nails removed 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 oriented x3 motor sensory intact skin: Normal turgor PFSH Medical History Hypothyroid Recurrent thyroid cancer Incurved toenail Cervical lymphadenopathy Vitamin D deficiency History of thyroid cancer Diabetes type 2, uncontrolled Herpes labialis Lipid disorder Seborrheic dermatitis of scalp Psoriasis Hypertension, essential Headache syndrome Obesity (BMI 30-39.9) History of primary hyperparathyroidism Dyslipidemia Diabetes type 2, controlled Post-surgical hypothyroidism Primary thyroid cancer Surgical History History of esophagogastroduodenoscopy (EGD) Hx of colonoscopy History of back surgery History of partial hysterectomy Hx of thyroidectomy History of partial thyroidectomy Family History Father Diabetes Hypertension Mother Degenerative arthritis Hypertension Maternal Grandmother Colon cancer Other Substance use disorder Social History Household Members: Children Household Members Other:: single- Housing: House Are you a primary eye care professional to a significant other at home: No Do you presently have visiting nurse or other home services: No Alcohol intake: never Patient Tobacco Use Status: Never used Tobacco e-Cigarette/Vaping Use: Never Used service: No Current occupational status: employed 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 1. Little interest or pleasure in doing things: not at all 2. Feeling down, depressed, or hopeless: not at all 3. Trouble falling or staying asleep, or sleeping too much: several days 4. Feeling tired or having little energy: not at all 5. Poor appetite or overeating: not at all 6. Feeling bad about yourself - or that you are a failure or have let yourself or your family down: not at all 7. Trouble concentrating on things, such as reading the newspaper or watching television: not at all 8. Moving or speaking so slowly that other people could have noticed. Or the opp osite - being so fidgety or restless that you have been moving around a lot more than usual: not at all 9. Thoughts that you would be better off or of hurting yourself in some way: not at all Total score: 1 Depression Screening Interpretation: Negative Depression Screening Done: Yes 00448 - PHQ-9 Billing: Yes Source: Developed by Drs. Leonidas No, Akanksha Robin, Ej Hamilton and colleagues, with an educational everett from [employer]. Thrive Questionnaire Date Thrive assessed: 10/17/24 I am a: Patient What is your living situation today?: I have a steady place to live Within the past 12 months, did the food you bought not last and you didn't have the money to get more?: Never true Within the past 12 months, did you worry whether your food would run out before you got money to buy more?: Never true Do you have trouble paying for medicines?: No Do you have trouble getting transportation to medical appointments?: No Do you have trouble paying your heating and electricity bill?: No Do you have trouble taking care of your child, family member or friend?: No Do you have trouble with day-to-day activities such as bathing, preparing meals, shopping, managing finances, etc.?: No Are you currently unemployed and looking for a job?: No Are you interested in more education?: No Please select the resources that you would like help with: None Currently or been in a relationship where the following occur: No concerns reported THRIVE Score: 0 GEE-7 AMB Questionnaire EGE-7 Date GEE - 7 assessed: 10/17/24 Source: Developed by Drs. Leonidas No, Akanksha Robin, Ej Hamilton and colleagues, with an educational everett from [employer]. Physical exam (Primary Care) Vital Signs: Last Vital Signs Pulse 88 06/19/25 09:09 BP 120/72 06/19/25 09:09 Pulse Ox 97 06/19/25 09:09 BMI result Body Mass Index 28.4 Tobacco/Smoking Status: Tobacco use Status Tobacco use date assessed 02/13/25 06/19/25 09:15 Patient Tobacco Use Status Never used Tobacco 06/19/25 09:15 e-Cigarette/Vaping Use Never Used 06/19/25 09:15 PHQ-9: PHQ-9 Score PHQ-9: Total score 1 06/19/25 09:26 Depression Screening Interpretation: Negative Thrive Assessment: Date of Thrive Assessment Date Thrive assessed 10/17/24 06/19/25 09:15 Currently or been in a relationship where the following occur: No concerns reported Coding Level of Care Code Est Pt Level 4 (67834) Diagnoses Post-surgical hypothyroidism E89.0 Hypertension, essential I10 Lipid disorder E78.9 Insulin dependent type 2 diabetes mellitus E11.9; Z79.4 technician terminal and repeater (current) use of insulin Z79.4 Headache syndrome G44.89 Additional Codes PHQ-9 - 51866 - PHQ-9 Billing: Yes ([id number]) Assessment & Plan Assessment & Plan (1) Post-surgical hypothyroidism: Code(s): E89.0 - Postprocedural hypothyroidism Category: Medical (2) Hypertension, essential: Code(s): I10 - Essential (primary) hypertension Category: Medical (3) Lipid disorder: Code(s): E78.9 - Disorder of lipoprotein metabolism, unspecified Category: Medical (4) Insulin dependent type 2 diabetes mellitus: Code(s): E11.9 - Type 2 diabetes mellitus without complications; Z79.4 - longterm (current) use of insulin Category: Medical (5) longterm (current) use of insulin: Code(s): Z79.4 - technician terminal and repeater (current) use of insulin Category: Medical (6) Headache syndrome: Code(s): G44.89 - Other headache syndrome Category: Medical Plan History The patient is a 54-year-old female presenting with management and evaluation of type 2 diabetes, hypertension, hyperlipidemia, hypothyroidism, and weight management. Type 2 Diabetes Mellitus: - The patient is diabetic and manages her condition with insulin (16 units) and metformin. - Reports going off the rails with diet, resulting in low blood sugar episodes and compensatory eating. - This altered dietary behavior has led to weight gain. - A1c was recorded at 5.6 during the last test in February, indicating good control. - Reports difficulty in losing weight despite efforts. Hypertension: - Hypertension is being controlled with hydrochlorothiazide and lisinopril. - The patient reports normal blood pressure levels. Hyperlipidemia: - The patient is on atorvastatin for lipid control. - LDL was 106 in the last assessment. Hypothyroidism: - The patient is on levothyroxine for hypothyroidism. - TSH level was 0.05, with recent dose adjustment in February. - A repeat test for thyroid function is planned, as diminished control was noted. Body Weight and Obesity Management: - The patient is on semaglutide for obesity management. - Reports an increase in weight since February, from 180.8 lbs to 187 lbs. - BMI is noted to be 28.5 today. - Consumes a less disciplined diet due to hypoglycemic episodes, leading to weight gain. Gastroesophageal Reflux Disease (GERD): - Managed with omeprazole. Depression: - Managed with meloxetine. Recent surgical intervention for ingrown toenails: - Partial nail removal was performed recently on both sides of both big toes. - Post-operative tenderness noted, but no procedural pain reported. Medical History: - Type 2 Diabetes Mellitus, treated with insulin and metformin. - Hypertension, managed with hydrochlorothiazide and lisinopril. - Hyperlipidemia, treated with atorvastatin. - Hypothyroidism, managed with levothyroxine. - Gastroesophageal Reflux Disease (GERD), treated with omeprazole. - Depression, managed with meloxetine. - History of hemorrhoids, currently stable. - History of constipation. - obesity management with semaglutide, BMI recorded as 28.5. Problem List - Type 2 Diabetes Mellitus - Essential Hypertension - Hyperlipidemia - Hypothyroidism - Obesity - Gastroesophageal Reflux Disease (GERD) - Depression - Ingrown toenails Diagnostic results - Labs: - Hemoglobin A1c: 5.6 (February) - LDL: 106 - TSH: 0.05 - CBC within normal limits - Electrolytes within normal limits - Kidney function tests: normal - Liver enzymes: within normal limits Plan - Continue current regimen of insulin and metformin for diabetes. - Initiate glipizide therapy with one tablet and monitor glucose levels; discontinue if hypoglycemia persists. - Repeat thyroid function tests due to altered TSH and adjust levothyroxine as needed. - Monitor blood pressure and adjust antihypertensive medications as weight loss progresses. - Maintain atorvastatin for lipid control. - Continue semaglutide for weight management, encourage healthier dietary habits. - Evaluate kidney function periodically. - Manage GERD with continuing omeprazole. - Address depression by continuing meloxetine. - Advise on footwear and post-operative care for toenail surgery to reduce tenderness. f/u 3-4 M Orders: Orders Amylase Today E11.9 - Type 2 diabetes mellitus without complications, E78.9 - Disorder of lipoprotein metabolism, unspecified, E89.0 - Postprocedural hypothyroidism, I10 - Essential (primary) hypertension, Z79.4 - technician terminal and repeater (current) use of insulin Complete Blood Count Auto Diff Today E11.9 - Type 2 diabetes mellitus without complications, E78.9 - Disorder of lipoprotein metabolism, unspecified, E89.0 - Postprocedural hypothyroidism, I10 - Essential (primary) hypertension, Z79.4 - technician terminal and repeater (current) use of insulin Hemoglobin A1c Today E11.9 - Type 2 diabetes mellitus without complications, E78.9 - Disorder of lipoprotein metabolism, unspecified, E89.0 - Postprocedural hypothyroidism, I10 - Essential (primary) hypertension, Z79.4 - longterm (current) use of insulin Comprehensive Met. Panel Today E11.9 - Type 2 diabetes mellitus without complications, E78.9 - Disorder of lipoprotein metabolism, unspecified, E89.0 - Postprocedural hypothyroidism, I10 - Essential (primary) hypertension, Z79.4 - technician terminal and repeater (current) use of insulin LDL Cholesterol Direct Today E11.9 - Type 2 diabetes mellitus without complications, E78.9 - Disorder of lipoprotein metabolism, unspecified, E89.0 - Postprocedural hypothyroidism, I10 - Essential (primary) hypertension, Z79.4 - technician terminal and repeater (current) use of insulin TSH reflex Free T4 Today E11.9 - Type 2 diabetes mellitus without complicati ons, E78.9 - Disorder of lipoprotein metabolism, unspecified, E89.0 - Postprocedural hypothyroidism, I10 - Essential (primary) hypertension, Z79.4 - technician terminal and repeater (current) use of insulin
== END 2025-06-19 09:26 | disposition home or self-care (01) ==
LOC: HO.HMCC 09:08
PROVIDERS: PCP Internal Medicine; Visit Provider Internal Medicine
DX: E11.9 Type 2 diabetes mellitus without complications (principal); Z79.4 Long term (current) use of insulin; E89.0 Postprocedural hypothyroidism; I10 Essential (primary) hypertension; E78.9 Disorder of lipoprotein metabolism, unspecified; G44.89 Other headache syndrome

== ENCOUNTER → 2025-06-19 09:07 | Outpatient (BNVA) | payer OTHER, SELFPAY | PROVIDERS: PCP Internal Medicine; Visit Provider Internal Medicine | DX: E11.9 Type 2 diabetes mellitus without complications (principal); I10 Essential (primary) hypertension; E78.5 Hyperlipidemia, unspecified; E89.0 Postprocedural hypothyroidism; G44.89 Other headache syndrome; Z79.84 Long term (current) use of oral hypoglycemic drugs; Z79.4 Long term (current) use of insulin | CPT/HCPCS: 96127 ==

== ENCOUNTER 2025-07-19 16:16 | Outpatient (REF) | payer OTHER, SELFPAY ==
--- NOTE | ~2025-07-19 | US_ITS ---
EXAMINATION: US NECK. CLINICAL INFORMATION: Postprocedural hypothyroidism. History of malignant neoplasm of thyroid. COMPARISON: None available. TECHNIQUE: Linear transducer hunt-scale and color Doppler examination with attention to the region of the thyroid. FINDINGS: NODES: There is a hypoechoic round avascular area left neck segment 4 measuring 1.0 x 0.7 x 1.0 cm. It has absence of central echogenic hilum. It may represent a small cystic lymph node or an atypical lymph node. US/US soft tiss head and/or neck IMPRESSION: Likely atypical lymph node versus cystic lymph node left neck segment 4. Electronically signed by: Portillo Burgess MD 07/22/2025 07:13 AM EST
--- OUTSIDE RECORDS SUMMARY | 2025-07-19 16:50 | XMS_ITS | Encounter Summary ---
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 Not on mer e 04/18/2023 Are you concerned about learning? Not on file 04/18/2023 No 04/18/2023 No 04/18/2023 Digital Access Answer Date Recorded No 04/18/2023 No 04/18/2023 Reliable internet access at home? Not on file 04/18/2023 Device with a working camera? Not on file Comments Unknown Sex and Gender Information Value Date Recorded Sex Assigned at Female 03/10/2023 2:11 PM EDT Legal Sex Female 1:59 PM EDT Gender Identity Female 03/10/2023 2:00 PM EDT Sexual Orientation Straight 03/10/2023 2: 11 PM EDT documented as of this encounter Plan of Treatment Not on file documented as of this encounter Visit Diagnoses Not on filedocumented in this encounter Care Teams Metal Drill Press Operator Relationship Specialty Start Date End Date Yvette Chopra MD [address] [place] [address] [place] [phone] PCP - General Internal Medicine 03/10/23 Self-Referred, Patient 03/10/23 documented as of this encounter Additional Source Comments The information contained in this document represents components of the legal health record. It is not the complete legal health record.[facility]
--- OUTSIDE RECORDS SUMMARY | 2025-07-19 16:50 | XMS_ITS | Clinical Summary ---
Author Organization [facility] Address [address] [place] [phone] Phone Care Team Providers Care Security Systems Administrator Name Role Phone Yvette Chopra MD Primary Care Provider [phone] Self-Referred, Patient Unavailable Unavailab le Allergies Active Allergy Reactions Criticality Noted Date Comments Hydromorphone Nausea and/or Vomiting Medium 05/10/2023 Medications levothyroxine (SYNTHROID, LEVOTHROID) 137 MCG tablet Take 137 mcg by mouth every morning. Active glyBURIDE 2.5 MG Tab 2.5 mg, metFORMIN 500 MG Tab 500 mg Take by mouth 2 (two) times a day with meals. Active insulin glargine U-300 (TOUJEO SOLOSTAR) 300 unit/mL (1.5 mL) injection pen Active atorvastatin (LIPITOR) 40 MG tablet Take 40 mg by mouth daily. Active omeprazole (PRILOSEC) 20 MG capsule Take 20 mg by mouth daily. Active lisinopril (PRINIVIL,ZESTRIL ) 40 MG tabletIndications :Primary hypertension Take 0.5 tablets (20 mg total) by mouth daily. 90 tablet 3 3 Active hydroCHLOROthiazi de (HYDRODIURIL) 25 MG tablet 4 Active OZEMPIC 0.25 mg or 0.5 mg (2 mg/3 mL) subcutaneous injection pen 4 Active Social History Tobacco Use Types Packs/Day Years [...] Orientation Straight 03/10/2023 2: 11 PM EDT Last Filed Vital Signs Vital Sign Reading Time Taken Comments Blood Pressure 155/89 01/10/2024 1:29 PM EDT Pulse 88 01/10/2024 1:29 PM EDT Temperature - - Respiratory Rate - - Oxygen Saturation 100% 01/10/2024 1:29 PM EDT Inhaled Oxygen Concentration - - Weight 92.5 kg (204 lb) 01/10/2024 1:29 PM EDT Height 172.7 cm (5' 8 ) 01/10/2024 1:29 PM EDT Body Mass Index 31.02 01/10/2024 1:29 PM EDT Plan of Treatment Health Maintenance Due Date Last Done Comments Adult Td,Tdap Booster 1971 LIPID PANEL 1971 SMOKING Hx and SMOKELESS TOBACCO SCREENING 1984 HEPATITIS C SCREENING 1989 HIV ONE-TIME SCREENING (18-65 YEARS) 1989 PAP SMEAR 1992 MAMMOGRAM 2011 COLOGUARD 2016 COLONOSCOPY 2016 COLORECTAL CANCER SCREENING 2016 FIT TEST 2016 FOBT 2016 SIGMOIDOSCOPY 2016 VIRTUAL COLONOSCOPY 2016 PNEUMOCOCCAL VACCINES (50+ years) (1 of 1 - PCV) 2021 ZOSTER VACCINES (1 of 2) 2021 DEPRESSION SCREENING 05/03/2024 05/03/2023 CREATININE LEVEL 01/09/2025 01/10/2024, 06/14/2023 POTASSIUM LEVEL 01/09/2025 01/10/2024, 06/14/2023 TSH LEVEL 01/09/2025 01/10/2024, 06/14/2023 INFLUENZA VACCINE (#1) 2025 , 07/04/2018, 06/23/2018, Additional history exists COVID-19 VACCINE ( season) 2025 09/26/2021, 09/22/2020, 08/29/2020 SCREENING FOR DIABETES 06/14/2026 06/14/2023 RSV VACCINE (1 - 1-dose 75+ series) 2046 HEPATITIS A VACCINES Aged Out No long er eligible based on patient's age to complete this topic HIB VACCINES Aged Out No longer eligi ble based on patient's age to complete this topic MENINGOCOCCAL VACCINES (ACWY) Aged Out No longer eligible based on patient's age to complete this topic MENINGOCOCCAL VACCINES (B) Aged Out N o longer eligible based on patient's age to complete this topic Medical Devices Not on file Procedures Procedure Name Priority Date/Time Associated Diagnosis Comments THYROID STIMULATING HORMONE (TSH) Routine 01/10/2024 2:07 PM EDT Hurthle cell carcinoma of thyroid Hyperparathyroidism Type 2 diabetes mellitus with hyperglycemia, with long-term current use of insulin Primary hypertension Vitamin D deficiency, unspecified COMPREHENSIVE METABOLIC PANEL (CMP) Routine 01/10/2024 2:07 PM EDT Hurthle cell carcinoma of thyroid Hyperparathyroidism Type 2 diabetes mellitus with hyperglycemia, with long-term current use of insulin Primary hypertension Vitamin D deficiency, unspecified from Last 3 Months or Most Recently Relevant to Health Maintenance Results * (ABNORMAL) Comprehensive metabolic panel (01/10/2024 2:07 PM EDT) SODIUM 141 136 - 145 mmol/L [facility] POTASSIUM 4.1 3.4 - 5.1 mmol/L [facility] CHLORIDE 101 98 - 107 mmol/L [facility] CO2 26 22 - 31 mmol/L [facility] BUN 13 6 - 23 mg/dL [facility] CREATININE 0.75 0.50 - 1.20 mg/dL [facility] GLUCOSE 134(H) 70 - 100 mg/dL [facility] ALBUMIN 4.5 3.5 - 5.2 g/dL [facility] TOTAL PROTEIN 7.6 6.4 - 8.3 g/dL [facility] CALCIUM 10.0 8.8 - 10.7 mg/dL [facility] ALKALINE PHOSPHATASE 61 35 - 130 U/L [facility] TOTAL BILIRUBIN 0.3 0.0 - 1.0 mg/dL [facility] AST 22 10 - 50 U/L [facility] ALT 31 10 - 50 U/L [facility] GLOBULIN 3.1 2.2 - 4.2 g/dL [facility] EGFR 96 >59 mL/min/1.7 3m2 [facility] Comment:Estimated glomerular filtration rate calculated using the CKD-EPI refit equation. ANION GAP 14 7 - 17 mmol/L [facility] 01/10/2024 2:07 PM EDT 01/10/2024 2:09 PM EDT us Glen Alejandra MD, PhD LAB BLOOD BKR ORDERABLE S Final Result Performing Organization Address City/[facility]/ZIP Co de Phone Number [facility] [address] [place] [address] * (ABNORMAL) TSH (01/10/2024 2:07 PM EDT) TSH 0.44(L) 0.50 - 5.70 uIU/mL [facility] 01/10/2024 2:07 PM EDT 01/10/2024 2:09 PM EDT us Glen Alejandra MD, PhD LAB BLOOD BKR ORDERABLE S Final Result Performing Organization Address City/[facility] Co de Phone Number [facility] [address] [place] [address] from Last 3 Months or Most Recently Relevant to Health Maintenance Insurance [employer] Member Subscriber Plan / Payer (Ef fective 2019-) Name:Angelina Umana Relation to Subscriber:Self Name:Angelina Umana Payer ID:[id number] (NAIC) Type:PPO Address: [place] [id number] [employer] Member Subscriber Plan / Payer (Ef fective 2019-Present) Name:Angelina Umana Relation to Subscriber:Self Name:Angelina Umana Payer ID:[id number] (NAIC) Type:PPO Address: [place] [phone] [employer] Care Teams Security Systems Administrator Relationship Specialty Start Date End Date Yvette Chopra MD [address] [place] [address] [place] [address] PCP - General Internal Medicine 03/10/23 Self-Referred, Patient 03/10/23 Additional Source Comments The information contained in this document represents components of the legal health record. It is not the complete legal health record.[facility]
== END 2025-07-19 16:17 | disposition home or self-care (01) ==
LOC: HO.US 16:16
PROVIDERS: PCP Internal Medicine; Visit Provider Student in an Organized Health Care Education/Training Program
DX: E89.0 Postprocedural hypothyroidism (principal); Z85.850 Personal history of malignant neoplasm of thyroid
CPT/HCPCS: 76536

== ENCOUNTER → 2025-07-19 16:18 | Outpatient (BNV) | payer OTHER, SELFPAY | PROVIDERS: PCP Internal Medicine; Visit Provider Radiology Diagnostic Radiology | DX: E89.0 Postprocedural hypothyroidism (principal) | CPT/HCPCS: 76536 ==

== ENCOUNTER 2025-09-02 06:59 | Outpatient (REF) | payer OTHER, SELFPAY ==
--- OUTSIDE RECORDS SUMMARY | 2025-09-02 07:02 | XMS_ITS | Encounter Summary ---
Author Organization [facility] Address [address] [place] [phone] Phone Care Team Providers Care Senior C Web Developer Name Role Phone Yvette Chopra MD Primary Care Provider [phone] Self-Referred, Patient Unavailable Unavailab le Encounter Details Date Type Department Care Team (Late st Contact Info) Description 05/10/2023 Procedure Pass [facility] [address] [place] [address] Social History Tobacco Use Types Packs/Day Years [...] as of this encounter Plan of Treatment Upcoming Encounters Date Type Department Care Team (Late st Contact Info) Description 09/20/2025 3:00 PM EST Appointment [facility] [address] [place] [address] Glen Alejandra MD, PhD [address] [place] [address] [email or web address] documented as of this encounter Visit Diagnoses Not on filedocumented in this encounter Care Teams Senior C Web Developer Relationship Specialty Start Date End Date Yvette Chopra MD [address] [facility] [place] [address] PCP - General Internal Medicine 03/10/23 Self-Referred, Patient 03/10/23 documented as of this encounter Additional Source Comments The information contained in this document represents components of the legal health record. It is not the complete legal health record.[facility]
--- OUTSIDE RECORDS SUMMARY | 2025-09-02 07:02 | XMS_ITS | Clinical Summary ---
Author Organization [facility] Address [address] [place] [phone] Phone Care Team Providers Care Single Corner Cutter Name Role Phone Yvette Chopra MD Primary Care Provider [phone] Self-Referred, Patient Unavailable Unavailab le Allergies Active Allergy Reactions Criticality Noted Date Comments Hydromorphone Nausea and/or Vomiting Medium 05/10/2023 Medications levothyroxine (SYNTHROID, LEVOTHROID) 137 MCG tablet Take 125 mcg by mouth every morning. Active glyBURIDE 2.5 MG Tab 2.5 mg, metFORMIN 500 MG Tab 500 mg Take by mouth daily. Active insulin glargine U-300 (TOUJEO SOLOSTAR) 300 [...] mg/3 mL) subcutaneous injection pen 4 Active Encounters Date Type Department Care Team Description 08/13/2025 3:20 PM EST Office Visit [facility] [address] [place] [address] Glen Alejandra MD, PhD Hurthle cell carcinoma of thyroid (Primary Dx); Hyperparathyroidism; Type 2 diabetes mellitus with hyperglycemia, with long-term current use of insulin; Primary hypertension; Vitamin D deficiency, unspecified 08/01/2025 Orders Only [facility] [address] [place] [address] Glen Alejandra MD, PhD Hurthle cell carcinoma of thyroid (Primary Dx) from Last 3 Months Social History Tobacco Use Types Packs/Day Years Used Date Smoking Tobacco: Never Smokeless Tobacco: Never Education Answer Date Recorded Are you interested [...] Sign Reading Time Taken Comments Blood Pressure 130/87 08/13/2025 1:52 PM EST Pulse 104 08/13/2025 1:52 PM EST Temperature - - Respiratory Rate - - Oxygen Saturation 99% 08/13/2025 1:52 PM EST Inhaled Oxygen Concentration - - Weight 85.7 kg (189 lb) 08/13/2025 1:52 PM EST Height 172.7 cm (5' 8 ) 08/13/2025 1:52 PM EST Body Mass Index 28.74 08/13/2025 1:52 PM EST Plan of Treatment Upcoming Encounters Date Type Department Care Team (Late st Contact Info) Description 09/20/2025 3:00 PM EST Appointment [address] [address] Glen Alejandra MD, PhD [address] [place] [address] [email or web address] Maintenance Due Date Last Done Comments Adult Td,Tdap Booster 1971 HEMOGLOBIN A1C 1971 HEPATITIS C SCREENING 1989 HIV ONE-TIME SCREENING (18-65 YEARS) 1989 PNEUMOCOCCAL VACCINES (50+ years) (1 of 2 - PCV) 1990 ZOSTER VACCINES (1 of 2) 1990 PAP SMEAR 1992 MAMMOGRAM 2011 COLOGUARD 2016 COLONOSCOPY 2016 COLORECTAL CANCER SCREENING 2016 FIT TEST 2016 FOBT 2016 SIGMOIDOSCOPY 2016 VIRTUAL COLONOSCOPY 2016 RSV VACCINE (1 - Risk 50-74 years 1-dose series) 2021 DEPRESSION SCREENING 05/03/2024 05/03/2023 INFLUENZA VACCINE (#1) 2025 , 07/04/2018, 06/23/2018, Additional history exists COVID-19 VACCINE ( season) 2025 09/26/2021, 09/22/2020, 08/29/2020 DIABETIC EYE EXAM 08/13/2025 BLOOD PRESSURE 02/11/2026 08/13/2025 CREATININE LEVEL 08/13/2026 08/13/2025, , 06/14/2023 POTASSIUM LEVEL 08/13/2026 08/13/2025, 04/3 , 06/14/2023 TSH LEVEL 08/13/2026 08/13/2025, 04/3 , 06/14/2023 SMOKING STATUS SCREENING (Once After 26 Yrs) Completed 08/13/2025 HEPATITIS A VACCINES Aged Out No long [...] Diagnosis Comments THYROID STIMULATING HORMONE (TSH) Routine 08/13/2025 2:31 PM EST Hurthle cell carcinoma of thyroid Hyperparathyroidism Type 2 diabetes mellitus with hyperglycemia, with long-term current use of insulin Primary hypertension Vitamin D deficiency, unspecified COMPREHENSIVE METABOLIC PANEL (CMP) Routine 08/13/2025 2:31 PM EST Hurthle cell carcinoma of thyroid Hyperparathyroidism Type 2 diabetes mellitus with hyperglycemia, with long-term current use of insulin Primary hypertension Vitamin D deficiency, unspecified THYROGLOBULIN, TUMOR MARKER Routine 08/13/2025 2:31 PM EST Hurthle cell carcinoma of thyroid Hyperparathyroidism Type 2 diabetes mellitus with hyperglycemia, with long-term current use of insulin Primary hypertension Vitamin D deficiency, unspecified FREE T4 Routine 08/13/2025 2:31 PM EST Hurthle cell carcinoma of thyroid Hyperparathyroidism Type 2 diabetes mellitus with hyperglycemia, with long-term current use of insulin Primary hypertension Vitamin D deficiency, unspecified from Last 3 Months Results * (ABNORMAL) Comprehensive Metabolic Panel (CMP) (08/13/2025 2:31 PM EST) Sodium 137 136 - 145 mmol/L 08/13/2025 4:19 PM [facility] Potassium 4.1 3.4 - 5.1 mmol/L 08/13/2025 4:19 PM EST [facility] Chloride 99 98 - 107 mmol/L 08/13/2025 4:19 PM EST [facility] CO2 27 20 - 31 mmol/L 08/13/2025 4:19 PM EST [facility] Anion Gap 11 3 - 17 mmol/L 08/13/2025 4:19 PM [facility] BUN 15 6 - 23 mg/dL 08/13/2025 4:19 PM EST [facility] Creatinine 0.74 0.50 - 1.00 mg/dL 08/13/2025 4:19 PM [facility] eGFR 97 >59 mL/min/1.7 3m2 08/13/2025 4:19 PM [facility] Comment:Estimated glomerular filtration rate calculated using the CKD-EPI refit equation. Glucose 111(H) 70 - 99 mg/dL 08/13/2025 4:19 PM [facility] Calcium 9.7 8.5 - 10.5 mg/dL 08/13/2025 4:19 PM [facility] AST 22 <33 U/L 08/13/2025 4:19 PM [facility] ALT 24 10 - 50 U/L 08/13/2025 4:19 PM [facility] Alkaline Phosphatase 60 40 - 130 U/L 08/13/2025 4:19 PM [facility] Bilirubin, Total 0.3 0.0 - 1.2 mg/dL 08/13/2025 4:19 PM [facility] Total Protein 7.8 6.4 - 8.3 g/dL 08/13/2025 4:19 PM [facility] Albumin 4.5 3.5 - 5.2 g/dL 08/13/2025 4:19 PM [facility] Globulin 3.3 1.9 - 4.1 g/dL 08/13/2025 4:19 PM [facility] Blood (Blood) Venipuncture / Unknown 08/13/2025 2:31 PM EST 08/13/2025 3:26 PM EST us Glen Alejandra MD, PhD LAB BLOOD BKR ORDERABLE S Final Result [facility] [address] [address] * Thyroglobulin, Tumor Marker (08/13/2025 2:31 PM EST) Thyroglobulin Antibody, S <1.8 <1.8 IU/mL 08/15/2025 4:35 PM EST [facility] Thyroglobulin, Tumor Marker, S 0.1 < or = 33 ng/mL 08/15/2025 4:35 PM EST [facility] Thyroglobulin Interpretation SEE COMMENTS 08/15/2025 4:35 PM EST [facility] Comment: Thyroglobulin (Tg) reference intervals are for patients with an intact thyroid and not for patients who have had surgery for thyroid cancer. Tg reference intervals in patients that have undergone thyroidectomy or any treatment for follicular thyroid cancer are dependent on the residual mass of the thyroid tissue after surgery. Tg results, regardless of concentration, should not be interpreted as absolute evidence for the presence or absence of papillary or follicular thyroid cancer. This result needs to be interpreted in the context of the clinical evaluation. ADDITIONAL INFORMATION PLEASE NOTE: The given cutoff of <1.8 IU/mL is for the detection of potential thyroglobulin antibody (TgAb) interference in thyroglobulin immunoassays. A thyroglobulin antibody (TgAb) reference cutoff of <4.0 IU/mL may be more suitable for the evaluation of autoimmune thyroiditis. The thyroglobulin and thyroglobulin antibody testing methods are immunoenzymatic assays manufactured by [employer] and performed on the [employer] DXI 800. Values obtained from different assay methods or kits may be different and cannot be used interchangeably. The results cannot be interpreted as absolute evidence for the presence or absence of malignant disease. Blood (Blood) Venipuncture / Unknown 08/13/2025 2:31 PM EST 08/13/2025 3:26 PM EST us Glen Alejandra MD, PhD LAB BLOOD BKR ORDERABLE S Final Result [facility] [address] [place], [place] [address]RUST [phone] * (ABNORMAL) Thyroid Stimulating Hormone (TSH) (08/13/2025 2:31 PM EST) TSH 0.12(L) 0.40 - 5.00 uIU/mL 08/13/2025 4:19 PM EST [facility] Blood (Blood) Venipuncture / Unknown 08/13/2025 2:31 PM EST 08/13/2025 3:26 PM EST us Glen Alejandra MD, PhD LAB BLOOD BKR ORDERABLE S Final Result [address] [address] * T4, Free (08/13/2025 2:31 PM EST) T4, Free 1.5 0.9 - 1.8 ng/dL 08/13/2025 10:20 PM EST [facility] Blood (Blood) Venipuncture / Unknown 08/13/2025 2:31 PM EST 08/13/2025 3:26 PM EST us Glen Alejandra MD, PhD LAB BLOOD BKR ORDERABLE S Final Result [facility] [address] [place] [phone] from Last 3 Months Insurance [employer] B[employer]MIN[employer] [place] [employer] Care Teams Single Corner Cutter Relationship Specialty Start Date End Date Yvette Chopra MD [facility] [place] [address] PCP - General Internal Medicine 03/10/23 Self-Referred, Patient 03/10/23 Additional Source Comments The information contained in this document represents components of the legal health record. It is not the complete legal health record.[facility]
[2025-09-02 07:18] LABS: MANUAL DIFF FLAG NO
[2025-09-02 08:03] LABS: Hematocrit 38.6 % (37.0-47.0); Hemoglobin 12.7 g/dl (12.0-16.0); Imm Gran Abs Auto 0.01 X10*3/uL (0.00-0.03); Imm Gran Pct Auto 0.2 % (0.0-0.4); Lymphocytes Absolute Auto 1.7 X10*3/uL (1.2-4.9); Mean Corpuscular HGB Conc 32.9 g/dl (31.0-35.0); Mean Corpuscular Hemoglobin 29.9 pg (27.0-33.0); Mean Corpuscular Volume 90.8 fL (80.0-98.0); NRBC Abs Auto 0.000 X10*3/uL (0.0-0.012); NRBC Pct Auto 0.0 /100WBC (0.0-0.2); Platelet Count 370 X10*3/uL (160-400); Red Blood Count 4.25 X10*6/uL (4.20-5.50); White Blood Count 5.7 X10*3/uL (4.8-10.8)
[2025-09-02 08:46] LABS: Alanine Aminotransferase 24 U/L (0-31); Albumin Level 4.5 g/dL (3.5-5.0); Alkaline Phosphatase 58 U/L (39-117); Anion Gap 12 (12-20); Aspartate Amino Transferase 25 U/L (5-31); Blood Urea Nitrogen 11 mg/dL (9-16); Calcium 9.4 mg/dL (8.4-10.2); Carbon Dioxide 27 mmol/L (22-29); Chloride 108 mmol/L (96-108); Estimated Glomerular Filt Rate > 60; Lipase 61 U/L (8-78); Potassium 4.1 mmol/L (3.3-5.1); Sodium 143 mmol/L (135-145); Total Protein 7.0 g/dL (6.5-8.0)
[2025-09-02 08:59] LABS: Free T4 (Free Thyroxine) 1.11 ng/dL (0.71-1.85)
[2025-09-02 09:03] LABS: Thyroid Stimulating Hormone 0.84 uIU/mL (0.32-4.0)
[2025-09-02 09:17] LABS: Amylase 50 U/L (28-100)
[2025-09-02 12:22] LABS: Microalbum/Creatinine Ratio Ur 5.6 ug/mg cr (<30)
[2025-09-03 18:39] LABS: Thyroglobulin 0.1 ng/mL; Thyroglobulin Antibodies <1 IU/mL (< or = 1)
== END 2025-09-02 07:00 | disposition home or self-care (01) ==
LOC: HO.LAB 06:59
PROVIDERS: Absent Provider Student in an Organized Health Care Education/Training Program; PCP Internal Medicine; Visit Provider Internal Medicine
DX: N95.1 Menopausal and female climacteric states (principal); E66.09 Other obesity due to excess calories; Z68.31 Body mass index [BMI] 31.0-31.9, adult; E78.9 Disorder of lipoprotein metabolism, unspecified; G44.89 Other headache syndrome; E11.40 Type 2 diabetes mellitus with diabetic neuropathy, unspecified; E89.0 Postprocedural hypothyroidism; I10 Essential (primary) hypertension; C73 Malignant neoplasm of thyroid gland; Z79.4 Long term (current) use of insulin; Z85.850 Personal history of malignant neoplasm of thyroid
CPT/HCPCS: 36415; 80053; 82043; 82150; 82570; 83036; 83690; 83721; 84432; 84439; 84443; 85025; 86800

== ENCOUNTER 2025-09-11 08:44 | Outpatient (AMB) | payer OTHER, SELFPAY ==
--- NOTE | 2025-09-11 08:49 | MHC.OFFVIS ---
Vital Signs 09/11/25 08:55 Height 5 ft 8 in Weight 189 lb 13.088 oz BMI 28.9 BP 110/72 Blood Pressure Location Rt brachial Position Sitting Pulse 97 Pulse Source Pulse Oximeter Pulse Oximetry (%) 97 Oxygen Delivery Method Room Air Intake Visit Reasons: thyroid ca f/u Intake Note: Patient present today for Thyroid Cancer follow up. Human Resources Generalist Required: No Accompanied by: Self / Same As Patient Allergies hydromorphone (From DILAUDID) Adverse Reaction (Severe, Verified 09/11/25 08:55) PROJECTILE VOMITING Medication List - Last Reconciled 09/11/25 by Leonidas Nguyen MD atorvastatin 40 mg PO BEDTIME 90 days blood sugar diagnostic (FreeStyle Precision Papa Strips) once a day for calibration blood sugar diagnostic (OneTouch Verio test strips) 4x daily blood sugar diagnostic (Contour Next Test Strips) Check blood sugar four times a day As directed blood-glucose meter (Contour Next EZ Meter kit) As directed clobetasol 0.05% 1 appl topical BID PRN 30 days clotrimazole-betamethasone 1-0.05 % 1 appl topical ONCE 30 days Dexcom G7 Sensor (blood-glucose sensor) As directed, change every 10 days NS docusate sodium (Colace) 200 mg (2 x 100 mg) PO BEDTIME glipizide-metformin 5-500 mg 1 tab PO BID 90 days hydrochlorothiazide 25 mg PO QAM insulin glargine U-300 conc 16 units (0.0533 mL) subcut BEDTIME 90 days lancets As directed lancets (OneTouch Delica Plus Lancet) 4x daily lancets (Microlet Lancet) Check blood sugar four times daily As directed levothyroxine 112 mcg PO DAILY lisinopril 40 mg PO DAILY omeprazole 40 mg PO DAILY 90 days Ozempic (semaglutide) 2 mg (0.75 mL) subcut QWEEK NS pen needle, diabetic daily terbinafine HCl 250 mg PO DAILY valacyclovir 500 mg PO ONCE PRN 90 days venlafaxine ER 37.5 mg PO DAILY HPI Comments Details: 53-year-old female coming in today with 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 She also has a history of hyperparathyroidism status post subtotal parathyroidectomy. The patient last saw Dr. Rincon on 09/03/2024 HPI of thyroid cancer in detail In 2018 patient Was feeling very tired , diagnosed with primary hyperparahtyroidism , thats why was having neck evaluation with imaging. Was found to have thyroid nodules at that time. Underwent FNA biopsies that were positive for malignancy. I do not have these results. 04/24/2019: Underwent right hemithyroidectomy which revealed 0.9 cm focus of Hurthle cell carcinoma minimally invasive, no angioinvasion, no lymphatic invasion, no perineural invasion. Margins were negative. 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 This was classified as AJCC stage I (pT1b pNX) 11/13/2019: Underwent completion thyroidectomy: Surgical path was benign Did not initially receive I 131 T1 remnant ablation Non stimulated TG levels have remained less than 1 2019: Ultrasound of the head and neck revealed pathologically enlarged lymph nodes, 07/31/2020: FNA biopsy for right level 2, 1.7 cm cervical lymph node with no evidence of metastatic disease and TG washout was negative 12/17/2021: Ultrasound of the head and neck revealed to have normal-appearing lymph nodes, a right level 3, 2.2 cm and a left level 2, 1.5 cm lymph node. 12/23/2021: Underwent I 131 remnant ablation with 30.9 mCi of I 131, completed via Thyrogen stimulation. 12/23/2021: Labs TSH: 56.14, stimulated TG 3.3, TG antibody negative. 01/01/2022: Post treatment whole-body scan showed avid uptake within the thyroid bed, as well as minimally diffuse uptake within the bilateral lungs. Otherwise uptake was physiologic. 01/21/22:FNA biopsy of the R cervical level 3 2.2 cm lymph node and the L cervical level 2 1.5 cm lymph node both with benign cytology and negative TG washout. 05/31/2022: CT of the chest reveals small classified granulomas in the lung but no evidence of a metastatic process. 12/2022: Ultrasound neck at [facility] without any abnormal lymph nodes again showed a hypoechoic density i inferior to the left thyroid bed 4 mm. 02/18/23: WBS showed interval decrease uptake in the lungs. No other iodine avid metastatic disease seen. 02/16/2023: Labs TSH 67.21, stimulated TG 0.2, TG antibody undetectable 06/2023: had a 2nd opinion at [facility] in fall of 2022 where she underwent ultrasound of the neck which showed no abnormal LNS, showed a left hypoechoic 4 mm lesion ovoid, inferior to the left thyroid suspected to be parathyroid adenoma. . CT chest without any metastatic disease. Interval hisory 07/17/2024: Ultrasound neck report not finalized yet but I reviewed the images myself, showed a right level 3 ovoid 0.6 cm in AP dimension cm lymph node which is stable in size compared to prior ultrasound neck from December 2021, it has a thickened cortex and absent hilum., left-sided level 1B lymph node also read as abnormal measuring 0.8 cm in the AP dimension with absent hilum but when I look at the images myself it appears to have a hilum, does this has remained stable in size compared to prior ultrasound. Left-sided level 3, 1.3 X 0.8 X 0.6 cm appears to have a thickened cortex round shape. Again stable in size from prior ultrasound. Other normal avoid she had lymph nodes noted. 07/24/2024: CT chest did not show any metastatic disease 07/16/2024 labs TSH 0.89, free T4 0.98, thyroglobulin 0.1, TG antibody less than 1 Currentnly feeling well Ozempic increased to 1 mg, has lost 20 lbs on the increased dose for DM type 2 No dysphagia , did have some in 2022, underwne tEGD wuth balloon dilation , dysohagia resolved . No voice chngaes, no anterior pressure. Taking levothyroxine 112 mcg 7 pills a week She is on high dose biotin No palpitations , no tremors. having hot flashes . But is postmenopausal. Chronic constipation. Endorses Hair loss. History of hypercalcemia and primary Hyperparathyroidism She initially underwent a single gland parathyroidectomy 04/24/2019. She had resection of her R superior parathyroid gland at that time with intraoperative PTH declining from 122 to 23 indicating cure. She unfortunately had recurrence of her hyperparathyroidism and underwent an additional 2 gland parathyroidectomy 11/13/2019 with resection of her L superior and L inferior parathyroid glands. Unfortunately intraoperative PTH did not meet curative criteria with a decline from 61 to 59. She had a DXA scan most recently in Sep 2023 at [facility] which was WNL. Laboratory Tests 05/15/19 06/18/19 08/14/19 10:25 11:12 10:10 TSH Thyroglobulin 12.9 H 12.9 13.7 H Thyroglobulin Antibody <1 <1 <1 01/22/20 07/10/20 10/10/20 08:30 08:48 08:30 TSH 2.10 1.21 Thyroglobulin 0.9 H 0.6 H 0.5 H Thyroglobulin Antibody <1 <1 <1 01/06/21 11/16/21 11/19/21 09:30 10:32 08:03 TSH 1.43 3.29 5.04 H Thyroglobulin 0.5 H 0.7 L Thyroglobulin Antibody <1 <1 12/23/21 01/18/22 05/20/22 11:58 10:00 09:28 TSH 56.14 H 3.56 0.02 L Thyroglobulin 3.3 3.0 0.1 L Thyroglobulin Antibody <1 1 09/23/22 09/23/22 09/23/22 16:09 16:09 16:09 TSH 1.19 Thyroglobulin 0.1 H 0.1 L Thyroglobulin Antibody <1 <1 02/16/23 07/19/23 01/20/24 09:10 09:06 08:24 TSH 67.21 H 0.48 1.33 Thyroglobulin 0.2 H Thyroglobulin Antibody <1 Laboratory Tests 01/20/24 08:24 Calcium 10.2 Albumin 4.4 Laboratory Tests 07/16/24 07:37 TSH 0.89 Free T4 0.98 Thyroglobulin 0.1 H Thyroglobulin Antibody <1 Imaging and Pathology US 06/2020 US SOFT TISSUE OF THE NECK CLINICAL INFORMATION: Malignant neoplasm of thyroid gland. COMPARISON: Ultrasound soft tissue head/neck dated 11/21/2018. Thyroid ultrasound 06/19/2019. TECHNIQUE: Linear transducer grayscale and color Doppler examination of the thyroid bed and surrounding soft tissue. FINDINGS: RIGHT NECK: 1.Level 2 lymph node measures 1.0 x 0.5 x 0.8 cm. It has absent hilum with cystic features, abnormal. 2.Level 2 lymph node measures 1.7 x 0.6111 cm. It has slit-like hilum and appears normal. 3.Level 3 lymph node measures 1.7 x 0.6 x 1.1 cm. Absent hilum with cystic features, abnormal. 4.Level 5A lymph node measures 1.0 x 0.7 x 0.7 cm. It has absent hilum and has cystic and round features. LEFT NECK: 1.Level 1B lymph node measures 1.2 x 0.9 x 1.1 cm. It has absent hilum and has dominant cystic features with septation. Abnormal. 2.Level 2 lymph node measures 1.6 x 0.8 x 1.6 cm. Septations, abnormal. 3.Level 3 lymph node measures 1.4 x 0.6 x 0.8 cm. It has normal echogenic medulla and hypoechoic cortex, normal. 4.Level 3 lymph node measures 1.3 x 0.3 x 0.7 cm. There is normal echogenic medulla. Normal. 5.Level 4 lymph node measures 1.5 x 0.6 x 0.9 cm. It is an echogenic medulla and typical lymph node appearance, normal. 6.Level 2 lymph node measures 0.9 x 0.3 x 0.6 cm and has normal lymph node characteristics. US/US soft tiss head and/or neck IMPRESSION: Neck lymph nodes as described above. US SOFT TISSUE NECK 01/01 CLINICAL INFORMATION: Thyroid cancer. COMPARISON: Previous ultrasound June 2020 TECHNIQUE: Ultrasound of the neck soft tissues is performed with high- frequency hunt-scale imaging and color Doppler. FINDINGS: THYROID BED: Prior thyroidectomy. No residual thyroid tissue demonstrated in the thyroid bed. No cystic or solid nodules demonstrated in the thyroid bed. RIGHT NECK SOFT TISSUES: There are 3 right cervical lymph nodes. The largest nodes are as follows: Level 2: 1.6 x 0.5 x 0.6 cm. previous 1.7 x 0.6 x 1.1 cm. Normal elizabeth architecture. Level 3: 2.2 x 0.8 x 1.3 cm. previous 1.7 x 0.6 x 1.1 abnormal elizabeth architecture with slitlike hilum. LEFT NECK SOFT TISSUES: There are 4 left cervical lymph nodes. The largest nodes are as follows: Level 2: 1.4 x 1 x 1.5 cm. previous 1.2 x 0.9 x 1.1 abnormal elizabeth architecture with cortical thickening Level 2: 1.6 x 0.7 x 0.6 cm. Normal elizabeth architecture. There are level 3 and level 4 lymph nodes that appear unchanged in size with normal elizabeth architecture. US/US soft tiss head and/or neck IMPRESSION: Bilateral cervical lymph nodes. Most suspicious lymph node is a right zone 3 lymph node that measures 2.2 x 0.8 x 1.3 cm and has a slitlike hilum. Ct chest 01/2020 CT CHEST WITHOUT CONTRAST CLINICAL INFORMATION: History of thyroid malignancy. COMPARISON: Chest x-ray 12/11/2019 TECHNIQUE: Multidetector volumetric CT imaging of the chest was done. Axial MIP volume rendering provided. Sagittal and coronal reformatted images were obtained. This CT examination was performed using dose optimization techniques as appropriate, variously including the following: *Automated exposure control *Adjustment of mA and/or kV according to patient size (this includes techniques or standardized protocols for targeted exams where dose is matched to indication/reason for exam; i.e. extremities or head) *Use of iterative reconstruction technique DLP: 212 mGy-cm FINDINGS: MANAGER GLOBAL: Unremarkable LUNGS: The lungs are well-expanded without any acute pneumonic consolidation. No pulmonary nodule, mass or groundglass density seen. There is a right azygos lobe noted. MEDIASTINUM: The thyroid gland has been surgically removed. Central trachea and the bronchi are widely patent. Heart size and the great vessels are normal caliber. No pericardial effusion seen. There is no abnormal mediastinal adenopathy. PLEURA: There is no pleural effusion. No pleural mass or thickening. AXILLA: Small shotty lymph nodes are seen in bilateral axilla. UPPER ABDOMEN: Visualized liver, spleen, pancreas and bilateral adrenal glands unremarkable. OSSEOUS STRUCTURES: No aggressive lytic or sclerotic process seen. There is mild ventral spondylosis of mid dorsal spine. CT/CT chest wo con IMPRESSION: Unremarkable CT chest exam. Fleischner guidelines were followed. CT CHEST WITHOUT CONTRAST 06/03 CLINICAL INFORMATION: Hurthle cell carcinoma with lung metastases COMPARISON: CT chest 01/18/2022 TECHNIQUE: Multidetector volumetric CT imaging of the chest was done. Axial MIP volume rendering provided. Sagittal and coronal reformatted images were obtained. This CT examination was performed using dose optimization techniques as appropriate, variously including the following: *Automated exposure control *Adjustment of mA and/or kV according to patient size (this includes techniques or standardized protocols for targeted exams where dose is matched to indication/reason for exam; i.e. extremities or head) *Use of iterative reconstruction technique DLP: 188 mGy-cm FINDINGS: LUNGS: No new or suspicious pulmonary nodules. Couple tiny sub-4 mm calcified granulomas noted in the right an left lower lobes, unchanged. Unchanged mild linear subpleural scarring in the posterior right lower lobe. No airspace consolidation. Central through segmental airways are clear. Variant azygous fissure/lobe noted. MEDIASTINUM: No cardiomegaly or pericardial effusion. No mediastinal or hilar lymphadenopathy. Status post thyroidectomy with surgical clips in place. CORONARY ARTERY CALCIFICATION: None visualized on this study. PLEURA: There is no pleural effusion. No pleural mass or thickening. AXILLA: No lymphadenopathy. UPPER ABDOMEN: Mild hepatic hypoattenuation/steatosis. Imaged upper abdominal viscera otherwise unremarkable. OSSEOUS STRUCTURES: No acute fracture or suspicious osseous lesion. Mild multilevel degenerative disc disease. CT/CT chest wo IV con IMPRESSION: 1. No new or suspicious pulmonary nodules to suggest pulmonary metastasis. 2. No acute pulmonary process. 3. Mild hepatic steatosis. Dictated By: Gil Sanabria Signed By: <Electronically signed by Gil Sanabria in OV> She is currently on levothyroxine 112 mcg QDwith thyroglobulins around 0.1 and negative antithyroglobulin antibody. Getting 2 nd opinion at [facility] and has a repeat US due to atypical LN done at [place] . She is complaining about a palpable area of the neck [facility] Medical History Hypothyroid Recurrent thyroid cancer Incurved toenail Cervical lymphadenopathy Vitamin D deficiency History of thyroid cancer Diabetes type 2, uncontrolled Herpes labialis Lipid disorder Seborrheic dermatitis of scalp Psoriasis Hypertension, essential Headache syndrome Obesity (BMI 30-39.9) History of primary hyperparathyroidism Dyslipidemia Diabetes type 2, controlled Post-surgical hypothyroidism Primary thyroid cancer Surgical History History of esophagogastroduodenoscopy (EGD) Hx of colonoscopy History of back surgery History of partial hysterectomy Hx of thyroidectomy History of partial thyroidectomy Family History Father Diabetes Hypertension Mother Degenerative arthritis Hypertension Maternal Grandmother Colon cancer Other Substance use disorder Social History Household Members: Children Household Members Other:: single- Housing: House Are you a primary hospice care consultant to a significant other at home: No Do you presently have visiting nurse or other home services: No Alcohol intake: never Patient Tobacco Use Status: Never used Tobacco e-Cigarette/Vaping Use: Never Used service: No Current occupational status: employed 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 There was no cervical adenopathy palpated. 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 She has also had a couple of suspicious lymph nodes on her ultrasound of the neck, and with no malignancy identified on biopsy of suspicious lymph nodes in the neck in July 2020, when she had a right level 2, 1.7 cm lymph node biopsy: And January 2022 when she had a right level 3, 2.2 cm lymph nodes biopsy and a left level 2, 1.5 cm lymph node biopsy., thyroglobulin washout was negative. She had a whole-body scan in February 2023 which showed interval decreased uptake in the lungs and no other iodine avid metastatic disease. She also had a CT chest done at [facility] in fall and with us in July 2024 which did not show any structural disease. Ultrasound neck done in July 2024 Identified mostly normal looking lymph nodes, a few small lymph nodes that have some abnormal appearance remained stable in size compared to 2021, we will keep an eye on these and we plan to repeat an ultrasound next year as well. I wonder if the remnant ablation dose targeted possible disease in the lung though at this point we do not have any gross structural evidence of disease. It is also very reassuring to see that her stimulated TG levels has been less than 2 around 0.2 on most recent stimulated labs done in February 2023 and has come down from 3.3 from December 2021.. Unstimulated TG level at 0.1 on labs from 07/16/24 We would at this time classify her as MARGO excellent response to therapy. Given MARGO excellent response to therapy TSH goal of 0.5-2. She is currently on levothyroxine 137 mcg 6.5 pills a week. TSH is at goal She did have an atypical lymph node at left level 4 on recent neck ultrasound and this is being pursued at [facility] Plan: -. Continue current levothyroxine replacement. We will schedule follow up with Dr. Rincon after she follows up with [facility]. I did tell her to have the notes sent from [facility] to Dr. Rincon Coding Level of Care Code Est Pt Level 3 (61198) Add On Problem Visit Only Diagnoses Recurrent thyroid cancer C73 History of thyroid cancer Z85.850
--- OUTSIDE RECORDS SUMMARY | 2025-09-11 08:50 | XMS_ITS | Encounter Summary ---
Author Organization [facility] Address [address] [place] [id number] Phone Care Team Providers Care Health Education Teacher Name Role Phone Yvette Chopra MD Primary Care Provider [phone] Self-Referred, Patient Unavailable Unavailab le Encounter Details Date Type Department Care Team (Late st Contact Info) Description 05/10/2023 Procedure Pass Formerly [facility] [address] [place] [address] Social History Tobacco Use Types Packs/Day Years [...] Info) Description 09/20/2025 3:00 PM EST Appointment [facility] [address] [place] [address] Glen Alejandra MD, PhD [address] [place] [address] [email or web address] documented as of this encounter Visit Diagnoses Not on filedocumented in this encounter Care Teams Health Education Teacher Relationship Specialty Start Date End Date Yvette Chopra MD [address] [place] [address] PCP - General Internal Medicine 03/10/23 Self-Referred, Patient 03/10/23 documented as of this encounter Additional Source Comments The information contained in this document represents components of the legal health record. It is not the complete legal health record.[facility]
--- OUTSIDE RECORDS SUMMARY | 2025-09-11 08:50 | XMS_ITS | Clinical Summary ---
Author Organization [facility] Address [address] [place] [phone] Phone Care Team Providers Care Furnace Caretaker Name Role Phone Yvette Chopra MD Primary Care Provider [phone] Self-Referred, Patient Unavailable Unavailab le Allergies Active [...] Description 08/13/2025 3:20 PM EST Office Visit [facility] [address] [place] [id number] Glen Alejandra MD, PhD Hurthle cell carcinoma of thyroid (Primary Dx); Hyperparathyroidism; Type 2 diabetes mellitus with hyperglycemia, with long-term current use of insulin; Primary hypertension; Vitamin D deficiency, unspecified 08/01/2025 Orders Only [facility] [address] [place] [id number] Glen Alejandra MD, PhD Hurthle cell carcinoma [...] Info) Description 09/20/2025 3:00 PM EST Appointment [address] [address] Glen Alejandra MD, PhD [address] [place] [address] [email or web address] Maintenance Due Date Last Done [...] 136 - 145 mmol/L 08/13/2025 4:19 PM [facility] Potassium 4.1 3.4 - 5.1 mmol/L 08/13/2025 4:19 PM EST [facility] Chloride 99 98 - 107 mmol/L 08/13/2025 4:19 PM EST [facility] CO2 27 20 - 31 mmol/L 08/13/2025 4:19 PM EST [facility] Anion Gap 11 3 - 17 mmol/L 08/13/2025 4:19 PM [facility] BUN 15 6 - 23 mg/dL 08/13/2025 4:19 PM EST [facility] Creatinine 0.74 0.50 - 1.00 mg/dL 08/13/2025 4:19 PM [facility] eGFR 97 >59 mL/min/1.7 3m2 08/13/2025 4:19 PM [facility] Comment:Estimated glomerular filtration rate calculated using the CKD-EPI refit equation. Glucose 111(H) 70 - 99 mg/dL 08/13/2025 4:19 PM [facility] Calcium 9.7 8.5 - 10.5 mg/dL 08/13/2025 4:19 PM [facility] AST 22 <33 U/L 08/13/2025 4:19 PM [facility] ALT 24 10 - 50 U/L 08/13/2025 4:19 PM [facility] Alkaline Phosphatase 60 40 - 130 U/L 08/13/2025 4:19 PM [facility] Bilirubin, Total 0.3 0.0 - 1.2 mg/dL 08/13/2025 4:19 PM [facility] Total Protein 7.8 6.4 - 8.3 g/dL 08/13/2025 4:19 PM [facility] Albumin 4.5 3.5 - 5.2 g/dL 08/13/2025 4:19 PM [facility] Globulin 3.3 1.9 - 4.1 g/dL 08/13/2025 4:19 PM [facility] Blood (Blood) Venipuncture / Unknown 08/13/2025 2:31 PM EST 08/13/2025 3:26 PM EST us Glen Alejandra MD, PhD LAB BLOOD BKR ORDERABLE S Final Result [facility] [address] [address] * Thyroglobulin, Tumor Marker (08/13/2025 2:31 PM EST) Thyroglobulin Antibody, S <1.8 <1.8 IU/mL 08/15/2025 4:35 PM EST [facility] Thyroglobulin, Tumor Marker, S 0.1 < or = 33 ng/mL 08/15/2025 4:35 PM EST [facility] Thyroglobulin Interpretation SEE COMMENTS 08/15/2025 4:35 PM EST [facility] Comment: Thyroglobulin (Tg) reference intervals are for [...] testing methods are immunoenzymatic assays manufactured by [employer] and performed on the [employer] DXI 800. Values obtained from different assay methods or kits may be different and cannot be used interchangeably. The results cannot be interpreted as absolute evidence for the presence or absence of malignant disease. Blood (Blood) Venipuncture / Unknown 08/13/2025 2:31 PM EST 08/13/2025 3:26 PM EST us Glen Alejandra MD, PhD LAB BLOOD BKR ORDERABLE S Final Result [facility] (BEAKER) [facility] [address] [place], [place] [address] [phone] * (ABNORMAL) Thyroid Stimulating Hormone (TSH) (08/13/2025 2:31 PM EST) TSH 0.12(L) 0.40 - 5.00 uIU/mL 08/13/2025 4:19 PM EST [facility] Blood (Blood) Venipuncture / Unknown 08/13/2025 2:31 PM EST 08/13/2025 3:26 PM EST us Glen Alejandra MD, PhD LAB BLOOD BKR ORDERABLE S Final Result [address] [address] * T4, Free (08/13/2025 2:31 PM EST) T4, Free 1.5 0.9 - 1.8 ng/dL 08/13/2025 10:20 PM EST [facility] Blood (Blood) Venipuncture / Unknown 08/13/2025 2:31 PM EST 08/13/2025 3:26 PM EST us Glen Alejandra MD, PhD LAB BLOOD BKR ORDERABLE S Final Result [facility] [address] [place] [phone] from Last 3 Months Insurance [employer] B[employer] Care Teams Furnace Caretaker Relationship Specialty Start Date End Date Yvette Chopra MD [facility] [id number] PCP - General Internal Medicine 03/10/23 Self-Referred, Patient 03/10/23 Additional Source Comments The information contained in this document represents components of the legal health record. It is not the complete legal health record.[facility]
[2025-09-11 08:55] VITALS: BP 110/72; PULSE 97; O2SAT 97; BMI 28.9
== END 2025-09-11 09:13 | disposition home or self-care (01) ==
LOC: HO.ENCR 08:45
PROVIDERS: PCP Internal Medicine; Visit Provider Internal Medicine Endocrinology, Diabetes & Metabolism
DX: C73 Malignant neoplasm of thyroid gland (principal); Z85.850 Personal history of malignant neoplasm of thyroid
CPT/HCPCS: 99213